=== PATIENT | female | born 1960 | race Caucasian/White ===

== ENCOUNTER → 2018-11-20 | Outpatient (CLI) | payer BC ==
[2018-11-20 10:05] LABS: HCT 44.6 % (34.0-46.0); HGB 14.6 gm/dL (11.4-16.0); MCH 29.7 pg (25.0-35.0); MCHC 32.7 g/dL (31.0-37.0); MCV 90.9 fL (80.0-100.0); Mean Platelet Volume 6.8; Platelet Count 163 k/uL (150-450); RDW 13.2 % (11.5-15.5); WBC 3.4 k/uL (3.8-10.6)
[2018-11-20 16:20] LABS: Lyme IgG/IgM 0.05 Index
[2018-11-20 16:45] LABS: African American GFR (CKD) 71.4 (60.0-200.0); Albumin 4.9 g/dL (3.80-4.90); Albumin/Globulin Ratio 2.72 (1.60-3.17); Anion Gap 11.7 mmol/L (4.00-12.00); Calcium 10.2 mg/dL (8.7-10.3); Carbon Dioxide 27.3 mmol/L (21.6-31.8); Chol/HDL Ratio 2.69; Globulin 1.8 g/dL (1.6-3.3); LDL Cholesterol,Calculated 150.4 mg/dL (0.0-131.0); Potassium 4.3 mmol/L (3.5-5.5); Total Bilirubin 0.9 mg/dL (0.2-1.2); Total Protein 6.7 g/dL (6.2-8.2); VLDL Calculation 16.6 mg/dL (5.00-40.00)
== END | disposition home or self-care (01) ==
LOC: LABWHC1 09:17
PROVIDERS: ATTEND Family Medicine
DX: H93.19 Tinnitus, unspecified ear (principal); Z20.7 Contact with and (suspected) exposure to pediculosis, acariasis and other infestations; D72.819 Decreased white blood cell count, unspecified
CPT/HCPCS: 36415; 80053; 80061; 83090; 85027; 86141; 86618

== ENCOUNTER → 2018-12-22 | Outpatient (CLI) | payer BC ==
[2018-12-22 09:02] LABS: HCT 43.5 % (34.0-46.0); HGB 14.5 gm/dL (11.4-16.0); MCH 29.9 pg (25.0-35.0); MCHC 33.3 g/dL (31.0-37.0); MCV 89.6 fL (80.0-100.0); Mean Platelet Volume 6.9; Platelet Count 160 k/uL (150-450); RBC 4.85 m/uL (3.80-5.40); WBC 3.6 k/uL (3.8-10.6)
== END | disposition home or self-care (01) ==
LOC: LABWHC1 08:26
PROVIDERS: ATTEND Family Medicine
DX: G43.909 Migraine, unspecified, not intractable, without status migrainosus (principal); H93.19 Tinnitus, unspecified ear; D72.819 Decreased white blood cell count, unspecified
CPT/HCPCS: 36415; 85027

== ENCOUNTER → 2019-01-15 | Outpatient (CLI) | payer BC ==
--- NOTE | 2019-01-15 12:16 | CT ---
EXAMINATION TYPE: CT iac wo con DATE OF EXAM: 01/15/2019 COMPARISON: None HISTORY: Tinnitis and hearing loss. CT DLP: 200 mGycm Automated exposure control for dose reduction was used. CONTRAST: None FINDINGS: Internal auditory canals appear normal without expansion or erosion. Cochlea and semicircular canals are normal. Mastoid air cells are clear. The attics are clear. Scutum are normal. Middle ears are ronnell ar. Incus and malleus in normal orientation. There are high riding jugular bulbs present bilaterally. No cerebellar pontine angle masses are evident. IMPRESSION: NORMAL BILATERAL INTERNAL AUDITORY CANALS.
== END | disposition home or self-care (01) ==
LOC: RADCTMAIN 11:23
PROVIDERS: ATTEND Otolaryngology
DX: H93.12 Tinnitus, left ear (principal); H90.11 Conductive hearing loss, unilateral, right ear, with unrestricted hearing on the contralateral side; R26.89 Other abnormalities of gait and mobility
CPT/HCPCS: 70480

== ENCOUNTER 2019-07-23 12:43 | Day surgery (SDC) | payer BC ==
[2019-07-23] MEDS ORDERED: SODIUM CHLORIDE 0.9% 1,000 ML IV SCH ×2 (13:00→15:00)
[2019-07-23 13:14] VITALS: TEMP 98.2
[2019-07-23] MEDS ORDERED: VERAPAMIL 2.5 MG/ML 2 ML AMP ONE (13:59)
[2019-07-23] MEDS ORDERED: LIDOCAINE 1% INJ 10MG/ML (20 ML MDV) ONE (13:59)
[2019-07-23] MEDS ORDERED: HEPARIN SODIUM 1,000 UN/ML (10ML VL) ONE (13:59)
[2019-07-23] MEDS: MIDAZOLAM 2 MG/2 ML VIAL IV ONE ×2 (14:08→14:30)
[2019-07-23] MEDS: LIDOCAINE 1% INJ 10MG/ML (20 ML MDV) SQ ONE ×3 (14:10→14:22)
[2019-07-23] MEDS ORDERED: VERAPAMIL SYRINGE (5 MG/10 ML) INTRAARTER ONE (14:13)
[2019-07-23] MEDS ORDERED: IOPAMIDOL-370 100ML BTL INJ ONE (14:44)
[2019-07-23 15:17] VITALS: RESP 16
[2019-07-23 16:38] VITALS: BP 118/69; PULSE 64
--- NOTE | 2019-07-23 18:48 | CC ---
CARDIAC CATHETERIZATION REPORT DATE OF SERVICE: 07/23/2019 PROCEDURE: Left heart catheterization and coronary angiography. PERFORMED BY: Dr. Cuate Pedroza. Moderate conscious sedation time was 35 minutes. Patient was administered Versed. Oxygen saturation, hemodynamics and EKG were monitored closely. CLINICAL INFORMATION: Mrs. Clarence Delgado is a 59-year-old lady with a significant history for paroxysmal supraventricular tachycardia who underwent ablation about [address] Buitrago. She came into the office to see Dr. Buitrago with episodes of chest pressure that seemed to come on with activity and seemed to be persistent. The symptoms were suggestive of angina. He performed a stress test that was done today which revealed an anteroseptal and inferoseptal area of fixed defect with some reversibility, but more importantly she had chest pressure and EKG changes with Lexiscan administration. She was therefore advised cardiac catheterization after due discussion regarding risks, benefits and options. PROCEDURE NOTE: Under local anesthesia and strict aseptic precautions, a 6-Latvian introducer was placed in the right radial artery. I did not get much return. Patient is somewhat small. She weighs less than 60 kg and her arteries are also probably small. I therefore took the sheath out, applied manual pressure, and then I applied a TR band. Saturation in the fingers of the right hand was 98%. Good hemostasis was secured. I then turned my attention from the right femoral approach. Under strict aseptic precautions and local anesthesia, a 6-Latvian introducer was placed in the right femoral artery. Using a JL3.5 and JR4.0 catheters, I performed coronary angiography, and the same right catheter was used to check LV pressures. LV gram was not performed. Sheath was taken out and Angio-Seal device used to secure hemostasis. Results were discussed with the patient. I also spoke to her by phone, and she will be discharged later on today if she remains stable. CARDIAC CATHETERIZATION FINDINGS: The left ventricular end-diastolic pressure was about 12 mmHg without any gradient across aortic valve. LV gram was not performed. CORONARY ANGIOGRAPHY FINDINGS: RIGHT CORONARY ARTERY: This is a small nondominant vessel with a limited amount of myocardium being supplied by this. No significant disease is noted in the RCA. LEFT MAIN CORONARY ARTERY: Short, patent, disease-free vessel that immediately bifurcates into LAD and circumflex. Left main is very small. No significant disease. LEFT ANTERIOR DESCENDING CORONARY ARTERY: Good-caliber vessel extends along the anterior wall giving off septal and diagonal branches. Runs towards the apex, curves over the apex to supply the inferoapical portion of left ventricle. No significant disease in the LAD system. LEFT POSTERIOR CIRCUMFLEX CORONARY ARTERY: Technically this is a dominant vessel. Gives off an obtuse marginal branch proximally, then distally it divides into a PDA and PLV, both of which supply a sizable amount of myocardium. No significant disease in the dominant circumflex vessel. Left ventriculogram was not performed. FINAL IMPRESSION: This patient has normal filling pressures. No gradient across aortic valve. She has a left-dominant system. No significant CAD. The stress test was probably a false positive finding. Results were discussed with the patient, and I also communicated with the family. I expect she will be discharged later on today if she remains stable. I will see her on Saturday to check her right radial and femoral site and then she will follow up with Dr. Buitrago. I expect that she will be discharged today if she remains stable. MMODL / IJN: [id number] /
== END 2019-07-23 18:47 | disposition home or self-care (01) ==
LOC: CATHCVL 12:43
PROVIDERS: ATTEND Internal Medicine Interventional Cardiology
DX: I20.0 Unstable angina (principal); R94.31 Abnormal electrocardiogram [ECG] [EKG]; R94.39 Abnormal result of other cardiovascular function study; I47.1 Supraventricular tachycardia; E78.5 Hyperlipidemia, unspecified; Z79.82 Long term (current) use of aspirin; Z79.899 Other long term (current) drug therapy; Z88.0 Allergy status to penicillin; Z82.49 Family history of ischemic heart disease and other diseases of the circulatory system
CPT/HCPCS: 93458; 87635; C1769 ×4; C1760; C1894 ×2; J2250; J2001; Q9967

== ENCOUNTER 2019-08-13 10:12 | Emergency (ER) | payer BC ==
[2019-08-13 10:26] VITALS: TEMP 98.2
--- NOTE | 2019-08-13 10:55 | ED ---
General Adult HPI - General Chief complaint: Chest Pain Stated complaint: Weakness Time Seen by Provider: 08/13/19 10:32 Source: patient Mode of arrival: ambulatory Limitations: no limitations - History of Present Illness Initial comments: Dictation was produced using [employer] dictation software. please excuse any grammatical, word or spelling errors. This patient was cared for during a federal and state declared state of emergency secondary to Covid 19 Chief Complaint: 59-year-old female with past medical history of high cholesterol presents with sensation of rock in her chest. History of Present Illness: Is a 59-year-old female she has past medical history of high cholesterol. She presents today with sensation of a rock in her chest. Patient states she's had these symptoms before. She is currently undergoing evaluation for what is causing her symptoms. She had a cardiac cath in June of this year and was completely normal. She is currently working with a GI doctor and is to get a CT and possible endoscopy next month. Patient states her symptoms have come back onto her to come to the emergency department. She does complain of some mild nausea. She has minimal epigastric pain. States that she is able swallow and tolerate liquids and solids. No vomiting. The ROS documented in this emergency department record has been reviewed and confirmed by me. Those systems with pertinent positive or negative responses have been documented in the HPI. All other systems are other negative and/or noncontributory. PHYSICAL EXAM: General Impression: Alert and oriented x3, not in acute distress HEENT: Normocephalic atraumatic, extra-ocular movements intact, pupils equal and reactive to light bilaterally, mucous membranes moist. Cardiovascular: Heart regular rate and rhythm Chest: Able to complete full sentences, no retractions, no tachypnea Abdomen: abdomen soft, non-tender, non-distended, no organomegaly Musculoskeletal: Pulses present and equal in all extremities, no peripheral edema Motor: no focal deficits noted Neurological: CN II-XII grossly intact, no focal motor or sensory deficits noted Skin: Intact with no visualized rashes Psych: Normal affect and mood ED course: 59-year-old female presents with chest symptoms. He has no significant comorbidities. Vital signs upon arrival are within acceptable limits. Cardiac cath was reviewed from July 22 of this year. It was normal without any signs of disease to the coronary arteries. Laboratory evaluation obtained. CBC, coag panel, metabolic panel is unremarkable. Urinalysis shows 11 white blood cells. No concern for UTI at this time considering patient does not have any urinary symptoms. She will be notified of culture results if they are positive. Chest x-ray is unremarkable. Patient tolerating by mouth at bedside. At this point no further indication for any other testing at this time. She is instructed to follow-up with GI doctor for further outpatient workup. Return parameters discussed. Patient will be discharged. EKG interpretation: Ventricular rate 64, normal sinus rhythm,. Interval 112, QRS 96, QTC 387. No PA prolongation, no QTC prolongation, no ST or T-wave changes noted. Overall, this EKG is unremarkable - Related Data Home Medications Medication Instructions Recorded Confirmed Aspirin [Adult Low Dose Aspirin EC] 81 mg PO DAILY 07/23/19 07/23/19 Atorvastatin [Lipitor] 40 mg PO HS 07/23/19 07/23/19 Metoprolol Tartrate 25 mg PO DAILY 07/23/19 07/23/19 Allergies Allergy/AdvReac Type Severity Reaction Status Date / Time Penicillins Allergy Rash/Hives Verified 08/13/19 10:26 Review of Systems ROS Statement: Those systems with pertinent positive or pertinent negative responses have been documented in the HPI. ROS Other: All systems not noted in ROS Statement are negative. Past Medical History Additional Past Medical History / Comment(s): high cholestrol Past Surgical History: Ablation, Heart Catheterization, Hysterectomy Additional Past Surgical History / Comment(s): heart cath june 2019 Smoking Status: Never smoker Past Alcohol Use History: None Reported Past Drug Use History: None Reported General Exam Limitations: no limitations Course Vital Signs 08/13/19 08/13/19 10:21 12:09 Temperature 98.2 F Pulse Rate 69 82 Respiratory 18 16 Rate Blood Pressure 143/86 129/78 O2 Sat by Pulse 100 100 Oximetry Medical Decision Making - Lab Data Result diagrams: 08/13/19 10:47 08/13/19 10:47 Lab Results 08/13/19 08/13/19 08/13/19 Range/Units 10:47 10:47 10:47 WBC 3.2 L (3.8-10.6) k/uL RBC 4.86 (3.80-5.40) m/uL Hgb 14.2 (11.4-16.0) gm/dL Hct 44.3 (34.0-46.0) % MCV 91.3 (80.0-100.0) fL MCH 29.2 (25.0-35.0) pg MCHC 32.0 (31.0-37.0) g/dL RDW 13.4 (11.5-15.5) % Plt Count 161 (150-450) k/uL Neutrophils % 66 % Lymphocytes % 24 % Monocytes % 6 % Eosinophils % 1 % Basophils % 0 % Neutrophils # 2.1 (1.3-7.7) k/uL Lymphocytes # 0.8 L (1.0-4.8) k/uL Monocytes # 0.2 (0-1.0) k/uL Eosinophils # 0.0 (0-0.7) k/uL Basophils # 0.0 (0-0.2) k/uL PT 10.1 (9.0-12.0) sec INR 1.0 (<1.2) APTT 23.4 (22.0-30.0) sec Sodium 137 (137-145) mmol/L Potassium 3.8 (3.5-5.1) mmol/L Chloride 102 (98-107) mmol/L Carbon Dioxide 31 H (22-30) mmol/L Anion Gap 4 mmol/L BUN 15 (7-17) mg/dL Creatinine 0.86 (0.52-1.04) mg/dL Est GFR (CKD-EPI)AfAm 86 (>60 ml/min/1.73 sqM) Est GFR (CKD-EPI)NonAf 74 (>60 ml/min/1.73 sqM) Glucose 109 H (74-99) mg/dL Calcium 9.8 (8.4-10.2) mg/dL Magnesium 2.0 (1.6-2.3) mg/dL Total Bilirubin 0.6 (0.2-1.3) mg/dL AST 21 (14-36) U/L ALT 16 (4-34) U/L Alkaline Phosphatase 73 (38-126) U/L Troponin I (0.000-0.034) ng/mL Total Protein 7.1 (6.3-8.2) g/dL Albumin 4.5 (3.5-5.0) g/dL Urine Color Urine Appearance (Clear) Urine pH (5.0-8.0) Ur Specific [employer] (1.001-1.035) Urine Protein (Negative) Urine Glucose (UA) (Negative) Urine Ketones (Negative) Urine Blood (Negative) Urine Nitrite (Negative) Urine Bilirubin (Negative) Urine Urobilinogen (<2.0) mg/dL Ur Leukocyte Esterase (Negative) Urine RBC (0-5) /hpf Urine WBC (0-5) /hpf Ur Squamous Epith Cells (0-4) /hpf Amorphous Sediment (None) /hpf Urine Bacteria (None) /hpf Urine Mucus (None) /hpf 08/13/19 08/13/19 Range/Units 10:47 11:12 WBC (3.8-10.6) k/uL RBC (3.80-5.40) m/uL Hgb (11.4-16.0) gm/dL Hct (34.0-46.0) % MCV (80.0-100.0) fL MCH (25.0-35.0) pg MCHC (31.0-37.0) g/dL RDW (11.5-15.5) % Plt Count (150-450) k/uL Neutrophils % % Lymphocytes % % Monocytes % % Eosinophils % % Basophils % % Neutrophils # (1.3-7.7) k/uL Lymphocytes # (1.0-4.8) k/uL Monocytes # (0-1.0) k/uL Eosinophils # (0-0.7) k/uL Basophils # (0-0.2) k/uL PT (9.0-12.0) sec INR (<1.2) APTT (22.0-30.0) sec Sodium (137-145) mmol/L Potassium (3.5-5.1) mmol/L Chloride (98-107) mmol/L Carbon Dioxide (22-30) mmol/L Anion Gap mmol/L BUN (7-17) mg/dL Creatinine (0.52-1.04) mg/dL Est GFR (CKD-EPI)AfAm (>60 ml/min/1.73 sqM) Est GFR (CKD-EPI)NonAf (>60 ml/min/1.73 sqM) Glucose (74-99) mg/dL Calcium (8.4-10.2) mg/dL Magnesium (1.6-2.3) mg/dL Total Bilirubin (0.2-1.3) mg/dL AST (14-36) U/L ALT (4-34) U/L Alkaline Phosphatase (38-126) U/L Troponin I <0.012 (0.000-0.034) ng/mL Total Protein (6.3-8.2) g/dL Albumin (3.5-5.0) g/dL Urine Color Light Yellow Urine Appearance Cloudy H (Clear) Urine pH 7.5 (5.0-8.0) Ur Specific [employer] 1.005 (1.001-1.035) Urine Protein Negative (Negative) Urine Glucose (UA) Negative (Negative) Urine Ketones Negative (Negative) Urine Blood Negative (Negative) Urine Nitrite Negative (Negative) Urine Bilirubin Negative (Negative) Urine Urobilinogen <2.0 (<2.0) mg/dL Ur Leukocyte Esterase Large H (Negative) Urine RBC 3 (0-5) /hpf Urine WBC 11 H (0-5) /hpf Ur Squamous Epith Cells 1 (0-4) /hpf Amorphous Sediment Rare H (None) /hpf Urine Bacteria Occasional H (None) /hpf Urine Mucus Rare H (None) /hpf Disposition Clinical Impression: Chest discomfort Disposition: HOME SELF-CARE Condition: Good Instructions (If sedation given, give patient instructions): Chest Pain (ED) Is patient prescribed a controlled substance at d/c from ED?: No Referrals: Genet Preciado DO [Primary Care Provider] - 1-2 days Time of Disposition: 12:16
[2019-08-13 11:03] LABS: Basophils % (A) 0 %; Eosinophils % (A) 1 %; HCT 44.3 % (34.0-46.0); HGB 14.2 gm/dL (11.4-16.0); Lymphocytes # (A) 0.8 k/uL (1.0-4.8); Lymphocytes % (A) 24 %; MCH 29.2 pg (25.0-35.0); MCV 91.3 fL (80.0-100.0); Mean Platelet Volume 7.1; Monocytes # (A) 0.2 k/uL (0-1.0); Monocytes % (A) 6 %; Neutrophils # (A) 2.1 k/uL (1.3-7.7); Neutrophils % (A) 66 %; Platelet Count 161 k/uL (150-450); RBC 4.86 m/uL (3.80-5.40); RDW 13.4 % (11.5-15.5); WBC 3.2 k/uL (3.8-10.6)
[2019-08-13 11:14] LABS: Albumin 4.5 g/dL (3.5-5.0); Calcium 9.8 mg/dL (8.4-10.2); Potassium 3.8 mmol/L (3.5-5.1); Total Bilirubin 0.6 mg/dL (0.2-1.3); Total Protein 7.1 g/dL (6.3-8.2)
--- NOTE | 2019-08-13 11:18 | XR ---
EXAMINATION TYPE: XR chest 2V DATE OF EXAM: 08/13/2019 COMPARISON: NONE HISTORY: Chest pain TECHNIQUE: Frontal and lateral views of the chest are obtained. FINDINGS: There is no focal air space opacity, pleural effusion, or pneumothorax seen. The cardiac silhouette size is within normal limits. The osseous structures are intact. Probable nipple shadow noted incidentally on the left, patient is rotated, there are overlying cardiac leads. Prominent lung volumes could be indicative of underlying COPD. IMPRESSION: No acute cardiopulmonary process. Additional findings above.
[2019-08-13 11:28] LABS: Partial Thromboplastin Time 23.4 sec (22.0-30.0); Prothrombin Time 10.1 sec (9.0-12.0)
[2019-08-13 11:52] LABS: Amorphous Sediment,Urine Rare /hpf; Appearance,Urine Cloudy (Clear); Bacteria,Urine Occasional /hpf; Bilirubin,Urine Negative (Negative); Blood,Urine Negative (Negative); Color,Urine Light Yellow; Glucose,Urine (UA) Negative (Negative); Ketones,Urine Negative (Negative); Leukocyte Esterase,Urine Large (Negative); Mucus,Urine Rare /hpf; Nitrite,Urine Negative (Negative); PH, Urine 7.5 (5.0-8.0); Protein,Urine Negative (Negative); RBC,Urine 3 /hpf (0-5); Specific Gravity,Urine 1.005 (1.001-1.035); Squamous Epithelial Cell,Urine 1 /hpf (0-4); Urobilinogen,Urine <2.0 mg/dL (<2.0); WBC,Urine 11 /hpf (0-5)
[2019-08-13 12:10] VITALS: BP 129/78; PULSE 82; RESP 16
[2019-08-13] MEDS ORDERED: LIDOCAINE 5% PATCH TOPICAL STA (12:15)
== END 2019-08-13 13:00 | disposition home or self-care (01) ==
LOC: EC 10:12
DX: R07.89 Other chest pain (principal); R53.1 Weakness; R11.0 Nausea; R10.13 Epigastric pain; E78.00 Pure hypercholesterolemia, unspecified; Z79.82 Long term (current) use of aspirin; Z79.899 Other long term (current) drug therapy; Z88.0 Allergy status to penicillin
CPT/HCPCS: 36415; 71046; 80053; 81001; 83735; 84484; 85025; 85610; 85730; 87086; 93005; 99285

== ENCOUNTER → 2019-08-18 | Outpatient (CLI) | payer BC ==
--- NOTE | 2019-08-18 16:44 | CT ---
EXAMINATION TYPE: CT abdomen wo/w con DATE OF EXAM: 08/18/2019 HISTORY: Chest pain with weight loss and coughing after eating CT DLP: 420.9mGycm Automated Exposure Control for Dose Reduction was Utilized. CONTRAST: CT scan of the abdomen is performed without and with IV Contrast, patient injected with 100 mL of Iso sharri 300. COMPARISON: None. FINDINGS: LUNG BASES: No significant abnormality is appreciated. LIVER/GB: Hepatic lesion in segment 7 near the dome of the diaphragm measures approximately 1.7 x 2.5 cm. This is poorly visualized on noncontrast imaging. On arterial phase imaging this demonstrates pe ripheral nodular discontinuous enhancement. On delayed phase imaging this continues to demonstrate ce ntripetal enhancement with the majority of the lesion filled in with contrast. Findings are most comp atible with a benign hemangioma. There is a second adjacent 4 mm hepatic lesion that appears to fill in on delayed imaging most compatible with a flash filling hemangioma. Precontrast imaging demonstrat es no evidence of cholelithiasis. No intrahepatic biliary ductal dilatation. No radiopaque calculi in the gallbladder. PANCREAS: No significant abnormality is seen. SPLEEN: No splenomegaly. Spleen measures 11.9 cm in craniocaudal dimension. ADRENALS: No nodularity nor thickening. KIDNEYS: Precontrast imaging demonstrates no evidence of nephrolithiasis. There are punctate to small to accurately characterize sub-5 mm left renal lesions of the upper pole. No hydronephrosis of eithe r kidney. BOWEL: Appendicolith is seen within the distal appendix. No periappendiceal fat stranding. Appendix is retrocecal, partially air-filled and within normal limits of size. Mild thickening of the colon di ffusely with relative hyperemia of the bowel wall. LYMPH NODES: No greater than 1cm abdominal lymph nodes are appreciated. OSSEOUS STRUCTURES: No destructive osseous process is seen. OTHER: No intramural hematoma on precontrast imaging in the abdominal aorta. IMPRESSION: 1. Hepatic lesion has CT characteristics most compatible with a benign hemangioma. 2. Incidentally noted appendicolith. No current CT evidence of acute appendicitis. 3. Diffuse mild colonic wall thickening. Acute uncomplicated pancolitis of infectious or inflammatory etiology should be considered.
== END | disposition home or self-care (01) ==
LOC: RADCTMAIN 14:06
PROVIDERS: ATTEND Family Medicine
DX: K76.9 Liver disease, unspecified (principal)
CPT/HCPCS: 74170; Q9967

== ENCOUNTER 2019-08-27 18:04 | Inpatient (IN) | payer BC ==
[2019-08-27] MEDS ORDERED: SODIUM CHLORIDE 0.9% 1,000 ML IV STA (18:54)
[2019-08-27 19:27] LABS: Basophils % (A) 0 %; Eosinophils % (A) 1 %; HCT 38.1 % (34.0-46.0); HGB 12.6 gm/dL (11.4-16.0); Lymphocytes # (A) 0.4 k/uL (1.0-4.8); Lymphocytes % (A) 15 %; MCH 30.1 pg (25.0-35.0); MCHC 33.1 g/dL (31.0-37.0); MCV 90.9 fL (80.0-100.0); Mean Platelet Volume 7.9; Monocytes # (A) 0.2 k/uL (0-1.0); Monocytes % (A) 7 %; Neutrophils % (A) 75 %; Platelet Count 142 k/uL (150-450); RBC 4.19 m/uL (3.80-5.40); RDW 13.2 % (11.5-15.5); WBC 2.7 k/uL (3.8-10.6)
--- NOTE | 2019-08-27 19:34 | CT ---
EXAMINATION TYPE: CT brain wo con DATE OF EXAM: 08/27/2019 HISTORY: Weakness. CT DLP: 1129.4 mGycm. Automated Exposure Control for Dose Reduction was Utilized. TECHNIQUE: CT scan of the head is performed without contrast. COMPARISON: None. FINDINGS: There is no acute intracranial hemorrhage or midline shift identified. There is diffuse v entricular and sulcal prominence consistent with diffuse age-related cerebral atrophy. Capone-white mat ter differentiation fairly well maintained. Nasal septum deviated to left of midline inferiorly. The globes are intact and the visualized sinuses are clear. IMPRESSION: No acute intracranial hemorrhage or midline shift. There is mild diffuse age-related ce rebral atrophy noted.
[2019-08-27 19:40] LABS: INR 1.1 (<1.2); Partial Thromboplastin Time 23.7 sec (22.0-30.0)
[2019-08-27 19:42] LABS: ALT 20 U/L (4-34); AST 25 U/L (14-36); African American GFR (CKD) >90 (>60 ml/min/1.73 sqM); Albumin 3.8 g/dL (3.5-5.0); Alkaline Phosphatase 67 U/L (38-126); Anion Gap 8 mmol/L; Blood Urea Nitrogen 15 mg/dL (7-17); Calcium 8.8 mg/dL (8.4-10.2); Carbon Dioxide 22 mmol/L (22-30); Chloride 104 mmol/L (98-107); Glucose 88 mg/dL (74-99); Magnesium 1.8 mg/dL (1.6-2.3); Non-African American GFR(CKD) >90 (>60 ml/min/1.73 sqM); Phosphorus 2.3 mg/dL (2.5-4.5); Potassium 4.1 mmol/L (3.5-5.1); Sodium 134 mmol/L (137-145); Total Bilirubin 0.6 mg/dL (0.2-1.3); Total Protein 6.1 g/dL (6.3-8.2)
--- NOTE | 2019-08-27 19:50 | ED ---
General Adult HPI - General Source: patient, RN notes reviewed, old records reviewed Mode of arrival: EMS Limitations: no limitations <Robert Vega - Last Filed: 08/27/19 20:10> <Anh Marshall - Last Filed: 08/30/19 15:54> - General Chief complaint: Weakness Stated complaint: Weakness Time Seen by Provider: 08/27/19 18:08 - History of Present Illness Initial comments: 59-year-old female patient presents to ED for chief complaint generalized weakness. Patient reports that for at least last 3 weeks she has had generalized weakness. Also reports that she has been having mild headaches over this timeframe. Reports that earlier today she had a more severe headache than normal noted in the frontal region however at this time it has mostly resolved. Denies any red flag symptoms for this headache. Denies any chest pain or shortness of breath. Denies any other complaints at this time. Patient did have a heart catheterization in June which was reportedly negative. Systemic: Pt denies fatigue, fever/chills, rash. Pt denies weakness, night sweats, weight loss. Neuro: Pt denies headache, visual disturbances, syncope or pre-syncope. HEENT: Pt denies ocular discharge or irritation, otalgia, rhinorrhea, pharyngitis or notable lymphadenopathy. Cardiopulmonary: Pt denies chest pain, SOB, heart palpitations, dyspnea on exertion. Abdominal/GI: Pt denies abdominal pain, n/v/d. : Pt denies dysuria, burning w/ urination, frequency/urgency. Denies new onset urinary or bowel incontinence. MSK: Pt denies myalgia, loss of strength or function in extremities. Neuro: Pt denies paresthesias. (Robert Vega) - Related Data Home Medications Medication Instructions Recorded Confirmed Acetaminophen [Tylenol] 500 mg PO DAILY PRN 08/27/19 08/27/19 Atorvastatin Calcium [Lipitor] 20 mg PO HS 08/27/19 08/27/19 Ibuprofen [Motrin Ib] 600 mg PO DAILY PRN 08/27/19 08/27/19 metroNIDAZOLE [Flagyl] 500 mg PO TID 08/27/19 08/27/19 Allergies Allergy/AdvReac Type Severity Reaction Status Date / Time Penicillins Allergy Rash/Hives Verified 08/27/19 22:33 Review of Systems ROS Other: All systems not noted in ROS Statement are negative. <Robert Vega - Last Filed: 08/27/19 20:10> ROS Other: All systems not noted in ROS Statement are negative. <Anh Marshall - Last Filed: 08/30/19 15:54> ROS Statement: Those systems with pertinent positive or pertinent negative responses have been documented in the HPI. Past Medical History Past Medical History: Atrial Fibrillation, Hyperlipidemia Additional Past Medical History / Comment(s): high cholestrol History of Any Multi-Drug Resistant Organisms: None Reported Past Surgical History: Ablation, Heart Catheterization, Hysterectomy Additional Past Surgical History / Comment(s): heart cath june 2019 Past Psychological History: No Psychological Hx Reported Smoking Status: Never smoker Past Alcohol Use History: None Reported Past Drug Use History: None Reported <Robert Vega - Last Filed: 08/27/19 20:10> General Exam Limitations: no limitations <Robert Vega - Last Filed: 08/27/19 20:10> - General Exam Comments Initial Comments: Constitutional: NAD, AOX3, Pt has pleasant affect. HEENT: NC/AT, trachea midline, neck supple, no lymphadenopathy. Posterior pharynx non erythematous, without exudates. External ears appear normal, without discharge. Mucous membranes moist. Eyes PERRLA, EOM intact. There is no scleral icterus. No pallor noted. Cardiopulmonary: RRR, no murmurs, rubs or gallops, no JVD noted. Lungs CTAB in anterior and posterior duarte. No peripheral edema. Abdominal exam: Abdomen soft and non-distended. Abdomen non-tender to palpation in all 4 quadrants. Bowel sounds active in LLQ. No hepatosplenomegaly. No ecchymosis Neuro: CN II-XI intact. No nuchal rigidity. No raccon eyes, no ferrer sign, no hemotympanum. No cervical spinal tenderness. MSK: No posterior calf tenderness bilaterally, homans sign negative bilaterally. Posterior tibialis and radial pulse +2 bilaterally. Sensation intact in upper and lower extremities. Full active ROM in upper and lower extremities, 5/5 stregnth. (Robert Vega) Course Vital Signs 08/27/19 08/27/19 08/27/19 18:05 20:30 22:05 Temperature 98.6 F 98.0 F Pulse Rate 56 L 60 55 L Pulse Rate [ Pulse Oximetery ] Respiratory 16 18 18 Rate Blood Pressure 134/80 119/68 120/70 Blood Pressure [Right Arm] O2 Sat by Pulse 100 100 99 Oximetry 08/27/19 23:25 Temperature 98.6 F Pulse Rate Pulse Rate [ 55 L Pulse Oximetery ] Respiratory 18 Rate Blood Pressure Blood Pressure 133/74 [Right Arm] O2 Sat by Pulse 100 Oximetry Medical Decision Making - Lab Data Result diagrams: 08/27/19 18:14 08/27/19 18:14 - EKG Data -: EKG Interpreted by Me (and Dr. Marshall ) <Robert Vega - Last Filed: 08/27/19 20:10> - Lab Data Result diagrams: 08/30/19 05:57 08/30/19 05:57 <Anh Marshall - Last Filed: 08/30/19 15:54> - Medical Decision Making 59-year-old female patient presents to ED for chief complaint generalized weakness. Patient reports that for at least last 3 weeks she has had generalized weakness. Also reports that she has been having mild headaches over this timeframe. Reports that earlier today she had a more severe headache than normal noted in the frontal region however at this time it has mostly resolved. Denies any red flag symptoms for this headache. Denies any chest pain or shortness of breath. Denies any other complaints at this time. Patient did chandra ve a heart catheterization in June which was reportedly negative. Patient vital signs are stable, afebrile. Physical exam did not display acute pathology. Laboratory investigations CBC coagulation studies CMP troponin are negative. Urine is pending. CT brain without did not display acute pathology. EKG is nonischemic. Patient is signed out to Dr. Marshall pending urine studies. (Robert Vega) The patient was signed out to me at shift change. I did review the patient's laboratory studies. The patient was able to provide a urine sample which demonstrates 4+ ketones. I reviewed the patient's CT of her brain. Discussed diagnosis, differential and treatment options. The patient feels as if she is unable to ambulate and is failing to thrive at home. Patient extremely cachectic and dehydrated. Because of this I did recommend hospital admission for the patient did agree. Discussed case with Dr. Edwards. I will consult cardiology per Dr. Espitia request. Also placed Dr. Hardy on consult as he has seen the patient the outpatient setting of recently place her on antibiotics. The patient was in agreement with the treatment plan and admitted to the floor in stable condition (Anh Marshall) - Lab Data Lab Results 08/27/19 08/27/19 08/27/19 Range/Units 18:14 18:14 18:14 WBC 2.7 L (3.8-10.6) k/uL RBC 4.19 (3.80-5.40) m/uL Hgb 12.6 (11.4-16.0) gm/dL Hct 38.1 (34.0-46.0) % MCV 90.9 (80.0-100.0) fL MCH 30.1 (25.0-35.0) pg MCHC 33.1 (31.0-37.0) g/dL RDW 13.2 (11.5-15.5) % Plt Count 142 L (150-450) k/uL Neutrophils % 75 % Lymphocytes % 15 % Monocytes % 7 % Eosinophils % 1 % Basophils % 0 % Neutrophils # 2.0 (1.3-7.7) k/uL Lymphocytes # 0.4 L (1.0-4.8) k/uL Monocytes # 0.2 (0-1.0) k/uL Eosinophils # 0.0 (0-0.7) k/uL Basophils # 0.0 (0-0.2) k/uL ESR (0-20) mm/hr PT 11.0 (9.0-12.0) sec INR 1.1 (<1.2) APTT 23.7 (22.0-30.0) sec Sodium 134 L (137-145) mmol/L Potassium 4.1 (3.5-5.1) mmol/L Chloride 104 (98-107) mmol/L Carbon Dioxide 22 (22-30) mmol/L Anion Gap 8 mmol/L BUN 15 (7-17) mg/dL Creatinine 0.72 (0.52-1.04) mg/dL Est GFR (CKD-EPI)AfAm >90 (>60 ml/min/1.73 sqM) Est GFR (CKD-EPI)NonAf >90 (>60 ml/min/1.73 sqM) Glucose 88 (74-99) mg/dL Plasma Lactic Acid Inocencio (0.7-2.0) mmol/L Calcium 8.8 (8.4-10.2) mg/dL Phosphorus 2.3 L (2.5-4.5) mg/dL Magnesium 1.8 (1.6-2.3) mg/dL Total Bilirubin 0.6 (0.2-1.3) mg/dL AST 25 (14-36) U/L ALT 20 (4-34) U/L Alkaline Phosphatase 67 (38-126) U/L Troponin I (0.000-0.034) ng/mL C-Reactive Protein (<10.0) mg/L Total Protein 6.1 L (6.3-8.2) g/dL Albumin 3.8 (3.5-5.0) g/dL Prealbumin (18.0-42.0) mg/dL Urine Color Urine Appearance (Clear) Urine pH (5.0-8.0) Ur Specific [place] (1.001-1.035) Urine Protein (Negative) Urine Glucose (UA) (Negative) Urine Ketones (Negative) Urine Blood (Negative) Urine Nitrite (Negative) Urine Bilirubin (Negative) Urine Urobilinogen (<2.0) mg/dL Ur Leukocyte Esterase (Negative) Coronavirus (PCR) (Not Detected) 08/27/19 08/27/19 08/27/19 Range/Units 18:14 18:14 20:43 WBC (3.8-10.6) k/uL RBC (3.80-5.40) m/uL Hgb (11.4-16.0) gm/dL Hct (34.0-46.0) % MCV (80.0-100.0) fL MCH (25.0-35.0) pg MCHC (31.0-37.0) g/dL RDW (11.5-15.5) % Plt Count (150-450) k/uL Neutrophils % % Lymphocytes % % Monocytes % % Eosinophils % % Basophils % % Neutrophils # (1.3-7.7) k/uL Lymphocytes # (1.0-4.8) k/uL Monocytes # (0-1.0) k/uL Eosinophils # (0-0.7) k/uL Basophils # (0-0.2) k/uL ESR (0-20) mm/hr PT (9.0-12.0) sec INR (<1.2) APTT (22.0-30.0) sec Sodium (137-145) mmol/L Potassium (3.5-5.1) mmol/L Chloride (98-107) mmol/L Carbon Dioxide (22-30) mmol/L Anion Gap mmol/L BUN (7-17) mg/dL Creatinine (0.52-1.04) mg/dL Est GFR (CKD-EPI)AfAm (>60 ml/min/1.73 sqM) Est GFR (CKD-EPI)NonAf (>60 ml/min/1.73 sqM) Glucose (74-99) mg/dL Plasma Lactic Acid Inocencio 1.2 (0.7-2.0) mmol/L Calcium (8.4-10.2) mg/dL Phosphorus (2.5-4.5) mg/dL Magnesium (1.6-2.3) mg/dL Total Bilirubin (0.2-1.3) mg/dL AST (14-36) U/L ALT (4-34) U/L Alkaline Phosphatase (38-126) U/L Troponin I <0.012 (0.000-0.034) ng/mL C-Reactive Protein (<10.0) mg/L Total Protein (6.3-8.2) g/dL Albumin (3.5-5.0) g/dL Prealbumin (18.0-42.0) mg/dL Urine Color Light Red Urine Appearance Clear (Clear) Urine pH 7.0 (5.0-8.0) Ur Specific [place] 1.027 (1.001-1.035) Urine Protein Trace H (Negative) Urine Glucose (UA) Negative (Negative) Urine Ketones 4+ H (Negative) Urine Blood Negative (Negative) Urine Nitrite Negative (Negative) Urine Bilirubin Negative (Negative) Urine Urobilinogen <2.0 (<2.0) mg/dL Ur Leukocyte Esterase Negative (Negative) Coronavirus (PCR) (Not Detected) 08/27/19 08/28/19 08/28/19 Range/Units 22:02 06:06 06:06 WBC 3.3 L (3.8-10.6) k/uL RBC 3.94 (3.80-5.40) m/uL Hgb 12.3 (11.4-16.0) gm/dL Hct 36.9 (34.0-46.0) % MCV 93.6 (80.0-100.0) fL MCH 31.2 (25.0-35.0) pg MCHC 33.3 (31.0-37.0) g/dL RDW 13.3 (11.5-15.5) % Plt Count 137 L (150-450) k/uL Neutrophils % 71 % Lymphocytes % 18 % Monocytes % 6 % Eosinophils % 2 % Basophils % 0 % Neutrophils # 2.3 (1.3-7.7) k/uL Lymphocytes # 0.6 L (1.0-4.8) k/uL Monocytes # 0.2 (0-1.0) k/uL Eosinophils # 0.1 (0-0.7) k/uL Basophils # 0.0 (0-0.2) k/uL ESR (0-20) mm/hr PT (9.0-12.0) sec INR (<1.2) APTT (22.0-30.0) sec Sodium 138 (137-145) mmol/L Potassium 3.8 (3.5-5.1) mmol/L Chloride 110 H (98-107) mmol/L Carbon Dioxide 22 (22-30) mmol/L Anion Gap 6 mmol/L BUN 11 (7-17) mg/dL Creatinine 0.72 (0.52-1.04) mg/dL Est GFR (CKD-EPI)AfAm >90 (>60 ml/min/1.73 sqM) Est GFR (CKD-EPI)NonAf >90 (>60 ml/min/1.73 sqM) Glucose 69 L (74-99) mg/dL Plasma Lactic Acid Inocencio (0.7-2.0) mmol/L Calcium 8.3 L (8.4-10.2) mg/dL Phosphorus (2.5-4.5) mg/dL Magnesium (1.6-2.3) mg/dL Total Bilirubin (0.2-1.3) mg/dL AST (14-36) U/L ALT (4-34) U/L Alkaline Phosphatase (38-126) U/L Troponin I (0.000-0.034) ng/mL C-Reactive Protein (<10.0) mg/L Total Protein (6.3-8.2) g/dL Albumin (3.5-5.0) g/dL Prealbumin (18.0-42.0) mg/dL Urine Color Urine Appearance (Clear) Urine pH (5.0-8.0) Ur Specific [place] (1.001-1.035) Urine Protein (Negative) Urine Glucose (UA) (Negative) Urine Ketones (Negative) Urine Blood (Negative) Urine Nitrite (Negative) Urine Bilirubin (Negative) Urine Urobilinogen (<2.0) mg/dL Ur Leukocyte Esterase (Negative) Coronavirus (PCR) Not Detected (Not Detected) 08/28/19 08/29/19 08/29/19 Range/Units 06:06 06:44 06:44 WBC (3.8-10.6) k/uL RBC (3.80-5.40) m/uL Hgb (11.4-16.0) gm/dL Hct (34.0-46.0) % MCV (80.0-100.0) fL MCH (25.0-35.0) pg MCHC (31.0-37.0) g/dL RDW (11.5-15.5) % Plt Count (150-450) k/uL Neutrophils % % Lymphocytes % % Monocytes % % Eosinophils % % Basophils % % Neutrophils # (1.3-7.7) k/uL Lymphocytes # (1.0-4.8) k/uL Monocytes # (0-1.0) k/uL Eosinophils # (0-0.7) k/uL Basophils # (0-0.2) k/uL ESR 2 (0-20) mm/hr PT (9.0-12.0) sec INR (<1.2) APTT (22.0-30.0) sec Sodium (137-145) mmol/L Potassium (3.5-5.1) mmol/L Chloride (98-107) mmol/L Carbon Dioxide (22-30) mmol/L Anion Gap mmol/L BUN (7-17) mg/dL Creatinine (0.52-1.04) mg/dL Est GFR (CKD-EPI)AfAm (>60 ml/min/1.73 sqM) Est GFR (CKD-EPI)NonAf (>60 ml/min/1.73 sqM) Glucose (74-99) mg/dL Plasma Lactic Acid Inocencio (0.7-2.0) mmol/L Calcium (8.4-10.2) mg/dL Phosphorus (2.5-4.5) mg/dL Magnesium (1.6-2.3) mg/dL Total Bilirubin (0.2-1.3) mg/dL AST (14-36) U/L ALT (4-34) U/L Alkaline Phosphatase (38-126) U/L Troponin I (0.000-0.034) ng/mL C-Reactive Protein <5.0 (<10.0) mg/L Total Protein (6.3-8.2) g/dL Albumin (3.5-5.0) g/dL Prealbumin 16.0 L (18.0-42.0) mg/dL Urine Color Urine Appearance (Clear) Urine pH (5.0-8.0) Ur Specific [place] (1.001-1.035) Urine Protein (Negative) Urine Glucose (UA) (Negative) Urine Ketones (Negative) Urine Blood (Negative) Urine Nitrite (Negative) Urine Bilirubin (Negative) Urine Urobilinogen (<2.0) mg/dL Ur Leukocyte Esterase (Negative) Coronavirus (PCR) (Not Detected) - EKG Data EKG Comments: Ventricular rate 50, painful 132, QRS 92, QT/QTc 452/412. Sinus bradycardia, septal infarct age undetermined. Abnormal EKG. No concern for acute ischemia at this time. (Robert Vega) Disposition <Robert Vega - Last Filed: 08/27/19 20:10> Is patient prescribed a controlled substance at d/c from ED?: No Decision to Admit Reason: Admit from EC Decision Date: 08/27/19 Decision Time: 21:45 <Anh Marshall - Last Filed: 08/30/19 15:54> Clinical Impression: Dehydration, Failure to thrive, Nausea & vomiting Disposition: ADMITTED IP TO THIS HOSP Condition: Stable
[2019-08-27 20:47] LABS: Appearance,Urine Clear (Clear); Bilirubin,Urine Negative (Negative); Blood,Urine Negative (Negative); Color,Urine Light Red; Glucose,Urine (UA) Negative (Negative); Ketones,Urine 4+ (Negative); Leukocyte Esterase,Urine Negative (Negative); Nitrite,Urine Negative (Negative); Protein,Urine Trace (Negative); Specific Gravity,Urine 1.027 (1.001-1.035); Urobilinogen,Urine <2.0 mg/dL (<2.0)
[2019-08-27] MEDS ORDERED: NALOXONE 0.4 MG/ML 1 ML VIAL IV PRN (21:45)
[2019-08-27] MEDS ORDERED: SODIUM CHLORIDE 0.9% 1,000 ML IV SCH (21:45)
[2019-08-28 06:42] LABS: Basophils % (A) 0 %; Eosinophils # (A) 0.1 k/uL (0-0.7); Eosinophils % (A) 2 %; HCT 36.9 % (34.0-46.0); HGB 12.3 gm/dL (11.4-16.0); Lymphocytes # (A) 0.6 k/uL (1.0-4.8); Lymphocytes % (A) 18 %; MCH 31.2 pg (25.0-35.0); MCHC 33.3 g/dL (31.0-37.0); MCV 93.6 fL (80.0-100.0); Mean Platelet Volume 7.4; Monocytes # (A) 0.2 k/uL (0-1.0); Monocytes % (A) 6 %; Neutrophils # (A) 2.3 k/uL (1.3-7.7); Neutrophils % (A) 71 %; Platelet Count 137 k/uL (150-450); RBC 3.94 m/uL (3.80-5.40); RDW 13.3 % (11.5-15.5); WBC 3.3 k/uL (3.8-10.6)
[2019-08-28 07:01] LABS: Potassium 3.8 mmol/L (3.5-5.1)
[2019-08-28 07:02] LABS: African American GFR (CKD) >90 (>60 ml/min/1.73 sqM); Anion Gap 6 mmol/L; Blood Urea Nitrogen 11 mg/dL (7-17); Calcium 8.3 mg/dL (8.4-10.2); Carbon Dioxide 22 mmol/L (22-30); Chloride 110 mmol/L (98-107); Glucose 69 mg/dL (74-99); Non-African American GFR(CKD) >90 (>60 ml/min/1.73 sqM); Sodium 138 mmol/L (137-145)
[2019-08-28] MEDS: ONDANSETRON 4 MG/2 ML VIAL IVP PRN (07:37)
[2019-08-28] MEDS: DEXTROSE 5%-0.45% NACL 1,000 ML IV SCH ×2 (10:22→22:04)
[2019-08-28] MEDS: metroNIDAZOLE-NS PMX 500 MG in SALINE 1 100ML.BAG IVPB SCH ×2 (10:23→16:52)
[2019-08-28 11:17] VITALS: BMI 17.9
--- NOTE | 2019-08-28 12:22 | P.GSCN ---
History of Present Illness Consult date: 08/28/19 History of present illness: 59-year-old female presented to the emergency department complaining of weakness. She has been evaluated as an outpatient in my office and she is known to me. She did presents my office last week with complaints of nausea and vomiting with any oral intake. She also complained of consistent diarrhea. She did have an ultrasound done at that time which was concerning for a possible liver lesion and at that time a CT of the abdomen and pelvis was pending. CT of the abdomen was completed and was reviewed earlier this week. There was concern for a hemangioma along with inflammation throughout the colon consistent with pancolitis. I did discuss these results with her over the phone and did start the patient on Flagyl at that time. She states that over the week, she continued to worsen with nausea and vomiting episodes and continued to have loose stool. Her weakness continued to increase and she presented to the hospital. Currently, she states that she does have some improvement with IV fluid therapy and IV Flagyl. She is on a clear liquid diet and states that she is able to keep liquids down at this time. She originally was scheduled for a upper and lower endoscopy in 1 week. She denies any fevers, chills, chest pain or shortness of breath. She has never had a previous colonoscopy. She denies any blood in her stool. Review of Systems All systems: negative Past Medical History Past Medical History: Atrial Fibrillation, Hyperlipidemia Additional Past Medical History / Comment(s): high cholestrol History of Any Multi-Drug Resistant Organisms: None Reported Past Surgical History: Ablation, Heart Catheterization, Hysterectomy Additional Past Surgical History / Comment(s): heart cath june 2019 Past Psychological History: No Psychological Hx Reported Smoking Status: Never smoker Past Alcohol Use History: None Reported Past Drug Use History: None Reported Medications and Allergies Home Medications Medication Instructions Recorded Confirmed Type Acetaminophen [Tylenol] 500 mg PO DAILY PRN 08/27/19 08/27/19 History Atorvastatin Calcium [Lipitor] 20 mg PO HS 08/27/19 08/27/19 History Ibuprofen [Motrin Ib] 600 mg PO DAILY PRN 08/27/19 08/27/19 History metroNIDAZOLE [Flagyl] 500 mg PO TID 08/27/19 08/27/19 History Allergies Allergy/AdvReac Type Severity Reaction Status Date / Time Penicillins Allergy Rash/Hives Verified 08/27/19 22:33 Surgical - Exam Osteopathic Statement: *. No significant issues noted on an osteopathic structural exam other than those noted in the History and Physical/Consult. Vital Signs Temp Pulse Resp BP Pulse Ox 98.6 F 56 L 16 134/80 100 08/27/19 18:05 08/27/19 18:05 08/27/19 18:05 08/27/19 18:05 08/27/19 18:05 - General well developed, well nourished - Eyes PERRL, normal ocular movement - ENT no hearing loss - Neck trachea midline - Respiratory normal respiratory effort - Abdomen Soft nontender nondistended no rebound or guarding - Psychiatric oriented to time, oriented to person, oriented to place Results - Labs 08/28/19 06:06 08/28/19 06:06 Abnormal Lab Results - Last 24 Hours (Table) 08/27/19 08/27/19 08/27/19 Range/Units 18:14 18:14 20:43 WBC 2.7 L (3.8-10.6) k/uL Plt Count 142 L (150-450) k/uL Lymphocytes # 0.4 L (1.0-4.8) k/uL Sodium 134 L (137-145) mmol/L Chloride (98-107) mmol/L Glucose (74-99) mg/dL Calcium (8.4-10.2) mg/dL Phosphorus 2.3 L (2.5-4.5) mg/dL Total Protein 6.1 L (6.3-8.2) g/dL Urine Protein Trace H (Negative) Urine Ketones 4+ H (Negative) 08/28/19 08/28/19 Range/Units 06:06 06:06 WBC 3.3 L (3.8-10.6) k/uL Plt Count 137 L (150-450) k/uL Lymphocytes # 0.6 L (1.0-4.8) k/uL Sodium (137-145) mmol/L Chloride 110 H (98-107) mmol/L Glucose 69 L (74-99) mg/dL Calcium 8.3 L (8.4-10.2) mg/dL Phosphorus (2.5-4.5) mg/dL Total Protein (6.3-8.2) g/dL Urine Protein (Negative) Urine Ketones (Negative) Diabetes panel 08/27/19 08/28/19 Range/Units 18:14 06:06 Sodium 134 L 138 (137-145) mmol/L Potassium 4.1 3.8 (3.5-5.1) mmol/L Chloride 104 110 H (98-107) mmol/L Carbon Dioxide 22 22 (22-30) mmol/L BUN 15 11 (7-17) mg/dL Creatinine 0.72 0.72 (0.52-1.04) mg/dL Glucose 88 69 L (74-99) mg/dL Calcium 8.8 8.3 L (8.4-10.2) mg/dL AST 25 (14-36) U/L ALT 20 (4-34) U/L Alkaline Phosphatase 67 (38-126) U/L Total Protein 6.1 L (6.3-8.2) g/dL Albumin 3.8 (3.5-5.0) g/dL Calcium panel 08/27/19 08/28/19 Range/Units 18:14 06:06 Calcium 8.8 8.3 L (8.4-10.2) mg/dL Phosphorus 2.3 L (2.5-4.5) mg/dL Albumin 3.8 (3.5-5.0) g/dL Pituitary panel 08/27/19 08/28/19 Range/Units 18:14 06:06 Sodium 134 L 138 (137-145) mmol/L Potassium 4.1 3.8 (3.5-5.1) mmol/L Chloride 104 110 H (98-107) mmol/L Carbon Dioxide 22 22 (22-30) mmol/L BUN 15 11 (7-17) mg/dL Creatinine 0.72 0.72 (0.52-1.04) mg/dL Glucose 88 69 L (74-99) mg/dL Calcium 8.8 8.3 L (8.4-10.2) mg/dL Adrenal panel 08/27/19 08/28/19 Range/Units 18:14 06:06 Sodium 134 L 138 (137-145) mmol/L Potassium 4.1 3.8 (3.5-5.1) mmol/L Chloride 104 110 H (98-107) mmol/L Carbon Dioxide 22 22 (22-30) mmol/L BUN 15 11 (7-17) mg/dL Creatinine 0.72 0.72 (0.52-1.04) mg/dL Glucose 88 69 L (74-99) mg/dL Calcium 8.8 8.3 L (8.4-10.2) mg/dL Total Bilirubin 0.6 (0.2-1.3) mg/dL AST 25 (14-36) U/L ALT 20 (4-34) U/L Alkaline Phosphatase 67 (38-126) U/L Total Protein 6.1 L (6.3-8.2) g/dL Albumin 3.8 (3.5-5.0) g/dL Assessment and Plan (1) Nausea & vomiting Narrative/Plan: I did discuss the case in depth with the patient. At this point, if concern was for colitis or enteritis, antibiotic treatment should have shown some success. Due to continuing worsening of symptoms, I did discuss her case with gastroenterology and have placed a consult for gastroenterology for further evaluation. She is currently tolerating a clear liquid diet and I would continue this diet. No surgical plan for hemangioma. Patient was originally scheduled for upper and lower endoscopy in 1 week, however I will defer to GI recommendations on if endoscopy needs to be performed earlier. I will continue to follow and make surgical recommendations based on the patient's clinical progress. Current Visit: Yes Status: Acute Code(s): R11.2 - NAUSEA WITH VOMITING, UNSPECIFIED SNOMED Code(s): 41853797
--- NOTE | 2019-08-28 12:54 | P.CRDCN ---
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 She follows in the office with Dr. Buitrago. In June 2019 she underwent a stress test in the office revealing possible reversibility prompting a heart catheterization. Cath revealed normal coronary arteries with no evidence of obstructive disease. We have been asked to see her in consultation for chest pa in. She is seen and examined in no acute distress. She is tearful and frustrated with no answers to her symptoms. She is having intermittent vague chest pain, headache and generalized weakness. Her pain is worse when she walks. DIAGNOSTICS EKG reveals sinus bradycardia heart rate 50 with poor R-wave progression. CT brain negative for an acute intracranial process. Laboratory reviewed, WBC 3.3, hgb 12.3, plt 137, potassium 3.8, creatinine 0.72 and magnesium 1.8. Daily cardiac medications include atorvastatin 20 mg daily. REVIEW OF SYSTEMS At the time of my exam: CONSTITUTIONAL: Denies fever or chills. CARDIOVASCULAR: Denies chest pain, shortness of breath, orthopnea, PND or palpitations. RESPIRATORY: Denies cough. GASTROINTESTINAL: Denies abdominal pain, diarrhea, constipation, nausea or vomiting. MUSCULOSKELETAL: Denies myalgias. NEUROLOGIC: Denies numbness, tingling or weakness. ENDOCRINE: Denies fatigue, weight change, polydipsia or polyurina. GENITOURINARY: Denies burning, hematuria or urgency with micturation. HEMATOLOGIC: Denies history of anemia or bleeding. PHYSICAL EXAMINATION Blood pressure heart rate afebrile and maintaining oxygen saturation on room air. CONSTITUTIONAL: No apparent distress. HEENT: Head is normocephalic. Pupils are equal, round. Sclerae anicteric. Mucous membranes of the mouth are moist. No JVD. No carotid bruit. CHEST EXAMINATION: Lungs are clear to auscultation. No chest wall tenderness is noted on palpation or with deep breathing. HEART EXAMINATION: Regular rate and rhythm. S1, S2 heard. No murmurs, gallops or rub. ABDOMEN: Soft, nontender. Positive bowel sounds. EXTREMITIES: 2+ peripheral pulses, no lower extremity edema and no calf tenderness. NEUROLOGIC EXAMINATION: Patient is awake, alert and oriented x3. ASSESSMENT Chest pain, recent normal catheterization 06/2019 Headache Generalized weakness Dyslipidemia History of AV-NRT s/p ablation PLAN Normal coronary arteries June 2019. Symptoms are not related to cardiac etiology. Consider GI source. No further cardiac work-up. Follow up with Dr. Buitrago in the office in 2 weeks. Thank you kindly for this consultation. Nurse Practitioner note has been reviewed, I agree with a documented findings and plan of care. Patient was seen and examined. Past Medical History Past Medical History: Atrial Fibrillation, Hyperlipidemia Additional Past Medical History / Comment(s): high cholestrol History of Any Multi-Drug Resistant Organisms: None Reported Past Surgical History: Ablation, Heart Catheterization, Hysterectomy Additional Past Surgical History / Comment(s): heart cath june 2019 Past Psychological History: No Psychological Hx Reported Smoking Status: Never smoker Past Alcohol Use History: None Reported Past Drug Use History: None Reported Medications and Allergies Home Medications Medication Instructions Recorded Confirmed Type Acetaminophen [Tylenol] 500 mg PO DAILY PRN 08/27/19 08/27/19 History Atorvastatin Calcium [Lipitor] 20 mg PO HS 08/27/19 08/27/19 History Ibuprofen [Motrin Ib] 600 mg PO DAILY PRN 08/27/19 08/27/19 History metroNIDAZOLE [Flagyl] 500 mg PO TID 08/27/19 08/27/19 History Allergies Allergy/AdvReac Type Severity Reaction Status Date / Time Penicillins Allergy Rash/Hives Verified 08/27/19 22:33 Physical Exam Vitals: Vital Signs Temp Pulse Pulse Resp BP BP Pulse Ox 08/28/19 05:02 98.3 F 58 L 16 118/66 99 08/28/19 00:00 18 08/27/19 23:25 98.6 F 55 L 18 133/74 100 08/27/19 22:05 98.0 F 55 L 18 120/70 99 08/27/19 20:30 60 18 119/68 100 08/27/19 18:05 98.6 F 56 L 16 134/80 100 Intake and Output 08/27/19 08/28/19 08/28/19 22:59 06:59 14:59 Intake Total 300 Balance 300 Intake: Intake, IV Titration 300 Amount Sodium Chloride 0.9% 1, 300 000 ml @ 75 mls/hr IV . [id number] [facility] Rx#:[id number] Other: Voiding Method Toilet # Voids 1 2 Weight 48.988 kg 48.988 kg Results 08/28/19 06:06 08/28/19 06:06 Cardiac Enzymes 08/27/19 08/27/19 Range/Units 18:14 18:14 AST 25 (14-36) U/L Troponin I <0.012 (0.000-0.034) ng/mL Coagulation 08/27/19 Range/Units 18:14 PT 11.0 (9.0-12.0) sec APTT 23.7 (22.0-30.0) sec CBC 08/27/19 08/28/19 Range/Units 18:14 06:06 WBC 2.7 L 3.3 L (3.8-10.6) k/uL RBC 4.19 3.94 (3.80-5.40) m/uL Hgb 12.6 12.3 (11.4-16.0) gm/dL Hct 38.1 36.9 (34.0-46.0) % Plt Count 142 L 137 L (150-450) k/uL Comprehensive Metabolic Panel 08/27/19 08/28/19 Range/Units 18:14 06:06 Sodium 134 L 138 (137-145) mmol/L Potassium 4.1 3.8 (3.5-5.1) mmol/L Chloride 104 110 H (98-107) mmol/L Carbon Dioxide 22 22 (22-30) mmol/L BUN 15 11 (7-17) mg/dL Creatinine 0.72 0.72 (0.52-1.04) mg/dL Glucose 88 69 L (74-99) mg/dL Calcium 8.8 8.3 L (8.4-10.2) mg/dL AST 25 (14-36) U/L ALT 20 (4-34) U/L Alkaline Phosphatase 67 (38-126) U/L Total Protein 6.1 L (6.3-8.2) g/dL Albumin 3.8 (3.5-5.0) g/dL Current Medications Generic Name Dose Route Start Last Admin Trade Name Freq PRN Reason Stop Dose Admin Sodium Chloride 1,000 mls @ 75 mls/hr 08/27/19 21:45 08/28/19 01:46 Saline 0.9% IV 75 mls/hr .[id number] [facility] Administration Naloxone HCl 0.2 mg 08/27/19 21:45 Narcan IV Q2M PRN Opioid Reversal Ondansetron HCl 4 mg 08/28/19 04:35 08/28/19 07:37 Zofran IVP 4 mg Q8HR PRN Administration Nausea And Vomiting Intake and Output 08/27/19 08/28/19 08/28/19 22:59 06:59 14:59 Intake Total 300 Balance 300 Intake: Intake, IV Titration 300 Amount Sodium Chloride 0.9% 1, 300 000 ml @ 75 mls/hr IV . [id number] [facility] Rx#:[id number] Other: Voiding Method Toilet # Voids 1 2 Weight 48.988 kg 48.988 kg 08/28/19 06:06 08/28/19 06:06
[2019-08-28] MEDS: PANTOPRAZOLE 40 MG/10 ML VIAL IVP SCH ×2 (15:08→22:03)
--- NOTE | 2019-08-28 17:20 | CONS ---
CONSULTATION DATE OF DICTATION: 08/28/2019 REASON FOR CONSULTATION: Abdominal pain, nausea, difficulty breathing and diarrhea on and off for the last 4 weeks' duration. HISTORY OF PRESENT ILLNESS: The patient is a 59-year-old pleasant white female who came to the emergency room yesterday complaining of weakness, not feeling well, some shortness of breath associated with nausea, decreased oral intake and diarrhea on and off for the last 3-4 weeks' duration. The patient was seen by Dr. Hardy on an outpatient basis and apparently she was having diarrhea, with bowel movements about 2-3 a day, loose to watery in consistency. She did have a CT of the abdomen and pelvis done at that time that showed thickening of the colon as well as a liver hemangioma. Because of possible infectious colitis she was started on Flagyl on an outpatient basis and the patient took the medication for about 2 days. Her symptoms continued to progressively get worse. She had worsening nausea and continued to have loose stools. She came to the emergency room yesterday and was subsequently admitted to the hospital for further evaluation. She denies any abdominal pain. She reports no fever, chills, night sweats. She had about one loose stool this morning. No bleeding. No melena. Most of her symptoms are related to eating; and every time she eats she feels like she gasps for air. She, however, denies any heartburn. She reports no dysphagia or odynophagia. She was treated with Pepcid on an outpatient basis, with no help. She also took Prilosec for 2 weeks, with no help. No prior history of EGD or colonoscopy in the past. No recent travel history. PAST MEDICAL HISTORY: Atrial fibrillation, hypertension and hyperlipidemia. PAST SURGICAL HISTORY: Cardiac catheterization in April of this year and cardiac ablation, hysterectomy. SOCIAL HISTORY: No smoking. No alcohol use. MEDICATIONS: Medications at home include Motrin, Flagyl, Lipitor, Tylenol. ALLERGIES: PENICILLIN. REVIEW OF SYSTEMS: CARDIOPULMONARY: No chest pain. Some shortness of breath. GENITOURINARY: No dysuria or hematuria. MUSCULOSKELETAL: Unremarkable. SKIN: Unremarkable. ENDOCRINE: Unremarkable. PSYCHIATRIC: Unremarkable. NEUROLOGY: Unremarkable. ENT/VISION: Unremarkable. CONSTITUTIONAL: Generalized fatigue, weakness. GI: As mentioned above. Decreased oral intake. No fever, chills, night sweats. PHYSICAL EXAMINATION: She appears comfortable. No apparent distress. Vital signs are stable. Blood pressure is 114/70, pulse rate 56, temperature 98.1. HEENT examination unremarkable. Conjunctivae pink. Sclerae anicteric. Oral cavity no lesions. NECK: No JVD or lymph node enlargement. CHEST: Clear to auscultation. HEART: Regular rate and rhythm. ABDOMEN: Soft. It was non-tender, non-distended. Liver and spleen were not palpable. Bowel sounds are positive. No organomegaly. EXTREMITIES: No pedal edema. SKIN: No rashes. NEUROLOGIC: She is alert and oriented x3. No focal deficits. LABS/IMAGING: Labs from yesterday show WBC 2.7, hemoglobin 12.6, platelets normal. Basic metabolic panel is within normal limits. AST, ALT, total bilirubin and alkaline phosphatase are normal. Phosphorus is slightly low at 2.3. CT of the abdomen and pelvis done 2 days ago showed mild diffuse thickening of the colon suspicious for colitis and a 2.7 cm liver hemangioma. IMPRESSION: 1. Nausea, vomiting, abdominal discomfort with diarrhea on and off for the last 2 weeks' duration. She was seen by Dr. Hardy and was started on Flagyl on an outpatient basis for possible infectious colitis. The patient took the medication for 2 days and then she started having worsening symptoms and hence came to the emergency room yesterday and was admitted to the hospital for further evaluation. Since being here, she only had one loose bowel movement this morning. She was started on empiric antibiotics with IV Flagyl, and stool cultures have been ordered which are still pending. She never had a colonoscopy in the past. Most likely we are dealing with an infectious etiology. 2. Decreased appetite/difficulty eating; complaining of shortness of breath and epigastric fullness after eating on and off for the last 4 weeks' duration. Rule out peptic ulcer disease versus gastroesophageal reflux disease. 3. Liver hemangioma. 4. Weight loss of 10 pounds. 5. History of supraventricular tachycardia in the past, status post cardiac ablation by Dr. Buitrago. RECOMMENDATIONS: 1. Will continue with symptomatic and supportive therapy for now. 2. Continue with IV Protonix 40 mg daily. 3. Keep her on a clear liquid diet. 4. Continue with empiric antibiotics with IV Flagyl. 5. Repeat labs in the morning. 6. If her symptoms continue to progressively get worse, we will consider endoscopic evaluation during this hospitalization. Otherwise, the patient is already scheduled for an EGD and colonoscopy by Dr. Hardy on an outpatient basis next Saturday. The plan was discussed with the patient. She is agreeable to it. Thank you for this consultation. NERY / MATHIEU: [id number] /
[2019-08-28] MEDS: ATORVASTATIN 20 MG TAB PO SCH (22:03)
--- NOTE | 2019-08-28 23:19 | P.HPIM ---
History of Present Illness H&P Date: 08/28/19 Chief Complaint: weakness Clarence Delgado is a 59 yo F with PMH of SVT s/p ablation, recent cath, who presented to the ED complaining of weakness. She had seen Dr. Hardy outpatient last week and at that time complained of nausea, vomiting, and diarrhea after meals with 3+ bowel movements daily. She had an US and CT which showed pancolitis and pt was started on flagyl. She states that she continued to experience nausea and vomiting and was only able to keep a few doses of flagyl down. Her weakness continued to increase and pt also began to experience chest tightness associated with her vomiting and she presented to the hospital. Currently, she states that she does have some improvement with IV fluid therapy and IV Flagyl. She is on a clear liquid diet and states that she is able to keep liquids down at this time. She originally was scheduled for a upper and lower endoscopy in 1 week. She denies any fevers, chills, chest pain or shortness of breath. She has never had a previous colonoscopy. She denies any blood in her stool. Review of Systems All systems: negative Constitutional: Reports fatigue, Reports malaise, Reports weakness, Denies chills, Denies fever Eyes: denies blurred vision, denies pain Ears, nose, mouth and throat: Denies headache, Denies sore throat Cardiovascular: Denies chest pain, Denies shortness of breath Respiratory: Denies cough Gastrointestinal: Reports diarrhea, Reports nausea, Reports vomiting, Denies abdominal pain Genitourinary: Denies dysuria, Denies hematuria Musculoskeletal: Denies myalgias Integumentary: Denies pruritus, Denies rash Neurological: Denies numbness, Denies weakness Psychiatric: Denies anxiety, Denies depression Endocrine: Denies fatigue, Denies weight change Past Medical History Past Medical History: Atrial Fibrillation, Hyperlipidemia Additional Past Medical History / Comment(s): high cholestrol History of Any Multi-Drug Resistant Organisms: None Reported Past Surgical History: Ablation, Heart Catheterization, Hysterectomy Additional Past Surgical History / Comment(s): heart cath june 2019 Past Psychological History: No Psychological Hx Reported Smoking Status: Never smoker Past Alcohol Use History: None Reported Past Drug Use History: None Reported Medications and Allergies Home Medications Medication Instructions Recorded Confirmed Type Acetaminophen [Tylenol] 500 mg PO DAILY PRN 08/27/19 08/27/19 History Atorvastatin Calcium [Lipitor] 20 mg PO HS 08/27/19 08/27/19 History Ibuprofen [Motrin Ib] 600 mg PO DAILY PRN 08/27/19 08/27/19 History metroNIDAZOLE [Flagyl] 500 mg PO TID 08/27/19 08/27/19 History Allergies Allergy/AdvReac Type Severity Reaction Status Date / Time Penicillins Allergy Rash/Hives Verified 08/27/19 22:33 Physical Exam Vitals: Vital Signs Temp Pulse Resp BP Pulse Ox 08/28/19 21:00 98.2 F 55 L 18 120/74 98 08/28/19 12:26 98.1 F 56 L 14 114/70 100 08/28/19 05:02 98.3 F 58 L 16 118/66 99 08/28/19 00:00 18 08/27/19 23:25 98.6 F 55 L 18 133/74 100 Intake and Output 08/28/19 08/28/19 08/29/19 14:59 22:59 06:59 Intake Total 700 Balance 700 Intake: Intake, IV Titration 700 Amount Sodium Chloride 0.9% 1, 600 000 ml @ 75 mls/hr IV . [id number] [facility] Rx#:[id number] metroNIDAZOLE-NS PMX 500 100 mg In Saline 1 100ml.bag @ 100 mls/hr IVPB Q8HR [facility] Rx#:[id number] Other: Voiding Method Toilet Toilet Weight 48.988 kg General: well nourished, well developed, NAD. Vitals reviewed Eyes: PERRL, EOMI, conjunctiva normal HENT: normocephalic, mucus membranes moist Neck: supple, no JVD Lungs: normal respiratory effort, no wheezes or rales CV: Regular rate and rhythm, no murmur. Peripheral pulses 2+ Abdomen: soft, nondistended, no organomegaly Lymph: no cervical or axillary LAD Skin: warm and dry. Neuro: A&Ox3, normal mood and affect Results CBC & Chem 7: 08/28/19 06:06 08/28/19 06:06 Labs: Abnormal Lab Results - Last 24 Hours (Table) 08/28/19 08/28/19 08/28/19 Range/Units 06:06 06:06 06:06 WBC 3.3 L (3.8-10.6) k/uL Plt Count 137 L (150-450) k/uL Lymphocytes # 0.6 L (1.0-4.8) k/uL Chloride 110 H (98-107) mmol/L Glucose 69 L (74-99) mg/dL Calcium 8.3 L (8.4-10.2) mg/dL Prealbumin 16.0 L (18.0-42.0) mg/dL Assessment and Plan (1) Weakness Current Visit: Yes Status: Acute Code(s): R53.1 - WEAKNESS SNOMED Code(s): 27087705 (2) Pancolitis Current Visit: Yes Status: Acute Code(s): K51.00 - ULCERATIVE (CHRONIC) PANCOLITIS WITHOUT COMPLICATIONS SNOMED Code(s): 673072299 (3) Hyponatremia Current Visit: Yes Status: Acute Code(s): E87.1 - HYPO-OSMOLALITY AND HYPONATREMIA SNOMED Code(s): 61792804 (4) Nausea & vomiting Current Visit: Yes Status: Acute Code(s): R11.2 - NAUSEA WITH VOMITING, UNSPECIFIED SNOMED Code(s): 63557070 (5) Chest discomfort Current Visit: No Status: Acute Code(s): R07.89 - OTHER CHEST PAIN SNOMED Code(s): 213827918 Plan: 1. Weakness, malaise, nausea and vomiting. Likely secondary to colitis. IV protonix and flagyl. Clear liquid diet. Surgery consult 2. Chest discomfort. Suspect gastritis with vomiting. Cardiology consult with previous cardiac history
[2019-08-29] MEDS: metroNIDAZOLE-NS PMX 500 MG in SALINE 1 100ML.BAG IVPB SCH ×3 (00:49→17:22)
[2019-08-29] MEDS: ACETAMINOPHEN TAB 325 MG TAB PO PRN ×4 (03:51→18:09)
[2019-08-29] MEDS: PANTOPRAZOLE 40 MG/10 ML VIAL IVP SCH (09:13)
--- NOTE | 2019-08-29 10:39 | P.PN ---
Subjective Progress Note Date: 08/29/19 Patient seen and examined at bedside. States that she did have a headache overnight. Continuing to tolerate clear liquid diet. Denies vomiting this morning. Denies abdominal pain. Objective - Vital Signs Vital signs: Vital Signs Temp 98.5 F 08/29/19 07:18 Pulse 62 08/29/19 07:18 Resp 18 08/29/19 07:18 BP 99/56 08/29/19 07:18 Pulse Ox 98 08/29/19 07:18 Intake & Output 08/28/19 08/29/19 08/29/19 18:59 06:59 18:59 Intake Total 700 550 900 Balance 700 550 900 Weight 48.988 kg Intake: Intake, IV Titration 700 700 Amount Dextrose 5%-0.45% NaCl 1, 600 000 ml @ 75 mls/hr IV . [id number] [facility] Rx#:[id number] Sodium Chloride 0.9% 1, 600 000 ml @ 75 mls/hr IV . [id number] [facility] Rx#:[id number] metroNIDAZOLE-NS PMX 500 100 100 mg In Saline 1 100ml.bag @ 100 mls/hr IVPB Q8HR [facility] Rx#:[id number] Oral 550 200 Other: Voiding Method Toilet Toilet # Voids 2 1 - Constitutional General appearance: Present: cooperative, no acute distress - EENT Eyes: Present: PERRLA - Gastrointestinal Gastrointestinal Comment(s): Soft, nontender, nondistended, no rebound, no guarding - Musculoskeletal Musculoskeletal: Present: generalized weakness - Psychiatric Psychiatric: Present: A&O x's 3 - Labs CBC & Chem 7: 08/28/19 06:06 08/28/19 06:06 Labs: Abnormal Lab Results - Last 24 Hours (Table) 08/28/19 Range/Units 06:06 Prealbumin 16.0 L (18.0-42.0) mg/dL Assessment and Plan (1) Nausea & vomiting Narrative/Plan: Patient was evaluated by GI service, Dr. Valles. Stool studies are pending at this time. No plan for acute surgical or endoscopic intervention unless sy mptoms worsen. Continue with supportive care and antibiotic management as it does appear that this is an infectious etiology. Will continue to follow and make recommendations based on patient's clinical progress. Current Visit: Yes Status: Acute Code(s): R11.2 - NAUSEA WITH VOMITING, UNSPECIFIED SNOMED Code(s): 61499266
--- NOTE | 2019-08-29 14:11 | PN ---
PROGRESS NOTE DATE OF DICTATION: August 29, 2019. REQUESTING PHYSICIAN: Dr. Hardy The patient is a 59-year-old pleasant white female admitted to the hospital with nausea, heartburn, chest discomfort, diarrhea on and off for the last 2-3 weeks duration. She is complaining of severe headaches through the night. Remains on a clear liquid diet, tolerating well. She has no further episodes of diarrhea since being in the hospital. She reports no abdominal pain. Continues to have some shortness of breath and some chest discomfort. No nausea, vomiting. Remains on empiric antibiotics for possible acute infectious colitis. PHYSICAL EXAMINATION: Appears comfortable, no apparent distress. VITAL SIGNS: Stable. Blood pressure 99/56, pulse is 62, temperature 98.5. HEENT examination unremarkable. Conjunctivae pink. Sclerae anicteric. Oral cavity no lesions. NECK no JVD or lymph node enlargement. CHEST was clear to auscultation. HEART: Regular rate and rhythm. ABDOMEN: Soft, it was nontender, nondistended. Bowel sounds are positive. No organomegaly. EXTREMITIES: No pedal edema. SKIN no rashes. NEUROLOGIC: Alert and oriented x3. No focal deficits. LABS: No labs available from today. Labs from yesterday were within normal limits. Stool testing was obtained which are still pending at the time of this dictation as patient did not have any bowel movements yesterday. IMPRESSION: 1. Acute gastroenteritis with nausea, vomiting, diarrhea on and off for the last 2-3 weeks duration. Patient on empiric antibiotics currently and her symptoms seem to be gradually improving. She had no further episodes of diarrhea since being in the hospital. 2. Chest pain, some heartburn, possible gastroesophageal reflux disease, on IV Protonix 40 mg daily. 3. Chronic headaches. RECOMMENDATIONS: 1. Continue with empiric antibiotics. 2. Continue Protonix 40 mg twice daily. 3. Advance diet as tolerated. 4. Increase ambulation. 5. Pain medications for chronic headaches. 6. If the patient's symptoms improve, she can be discharged home in 1-2 days with outpatient endoscopic workup by Dr. Hardy that is scheduled for next Saturday. Thank you for this consultation. MMODL / IJN: [id number] /
[2019-08-29] MEDS: DEXTROSE 5%-0.45% NACL 1,000 ML IV SCH ×2 (17:05→20:48)
[2019-08-29] MEDS ORDERED: ALPRAZolam 0.25 MG TAB PO PRN (17:07)
[2019-08-29] MEDS: IOPAMIDOL CONTRAST (ORAL USE) VIAL PO PRN ×2 (17:21→18:07)
--- NOTE | 2019-08-29 18:35 | PN ---
PROGRESS NOTE DATE OF SERVICE: 08/29/2019 I am covering for Dr. Velez. This 59-year-old woman with a past medical history of multiple medical problems, was admitted with gastroenteritis symptoms. The patient initially had dysphagia and cough and shortness of breath after eating also. The patient also complained of generalized weakness as well and mild headaches. The patient also had some nausea, vomiting. Dr. Valles and Dr. Hardy is following the patient closely. Dr. Valles has seen the patient. The patient was treated as an outpatient for infectious colitis. The patient had EGD and colonoscopy scheduled by Dr. Hardy on Saturday. Otherwise, plans are may continue to monitor. PAST MEDICAL HISTORY: Reviewed. REVIEW OF SYSTEMS: Cardiovascular: No angina. Respiration as mentioned earlier. GI: As mentioned earlier. NERVOUS SYSTEM: No numbness or weakness. CURRENT MEDICATIONS: Reviewed and include: 1. Tylenol p.r.n. 2. Lipitor. 3. Dextrose. 4. Flagyl IV. 5. Narcan. 6. Zofran. 7. Protonix. PHYSICAL EXAM: Patient is alert, oriented x3. Pulse 49, blood pressure 130/77, respirations 18. Temperature 97.7. Pulse ox 100 percent on room air. HEENT: Conjunctivae normal. NECK: No JVD. CARDIOVASCULAR: S1, S2 muffled. RESPIRATORY: Breath sounds diminished in the bases. A few rhonchi. No crackles. ABDOMEN: Soft, mild diffuse discomfort. No guarding. No rigidity. There is no mass palpable. LEGS: No edema, no swelling. NERVOUS SYSTEM: No focal deficits. LABS: WBC 3.3, platelets 137. The prealbumin is 16. Covid-19 is negative. ASSESSMENT: 1. Possible nonspecific infectious colitis. 2. Dysphagia for evaluation. 3. Cough and shortness of breath for evaluation. 4. Leukopenia. 5. Thrombocytopenia. 6. Hyponatremia. 7. Moderate protein calorie malnutrition because of poor p.o. intake. 8. History atrial fibrillation. 9. Hyperlipidemia. 10.History of hypercholesteremia. 11.History of cardiac ablation. 12.History of cardiac catheterization. RECOMMENDATIONS AND DISCUSSION: In this 59-year-old woman who presented with multiple complex medical issues, we will monitor the patient closely. Continue the current medications, symptomatic treatment. Continue the IV antibiotics. I would also recommend a CT scan of the chest and continued workup also. A CT scan of the abdomen and pelvis was done last month which showed benign hepatic lesions and diffuse mild chronic colon thickening. We will repeat the CT abdomen as well. Prognosis guarded because of multiple complex medical issues. Further recommendations to follow. Repeat labs also will be noted. The exact etiology of bicytopenia is also unknown. MMODL / IJN: [id number] /
--- NOTE | 2019-08-29 19:17 | XR ---
EXAMINATION TYPE: XR chest 1V portable DATE OF EXAM: 08/29/2019 COMPARISON: 08/13/2019 HISTORY: Chest pain. Short of breath. TECHNIQUE: FINDINGS: Heart is normal. Lungs are clear of infiltrate. Costophrenic angles are clear. There is no heart failure. There is probably some emphysematous changes in both upper lobes. Bony thorax is intac t. IMPRESSION: No active cardiopulmonary disease. Normal heart.
--- NOTE | 2019-08-29 20:08 | CT ---
EXAMINATION TYPE: CT ChestAbdPelvis wo con DATE OF EXAM: 08/29/2019 COMPARISON: CT abdomen 08/18/2019 HISTORY: Dysphagia and colitis. CT DLP: 331.6 mGycm Automated exposure control for dose reduction was used. Images were obtained from the thoracic inlet to the floor the pelvis without IV contrast. There is or al contrast only. There is pulmonary hyperinflation with some flattening of the diaphragm. There is no sign of pneumoth orax. Lungs are clear of consolidation. There is no evidence of a pulmonary mass. Heart size is allyssa l. There is no mediastinal adenopathy. There are no hilar masses. Bony thorax is intact. There is no pericardial effusion. Stomach appears normal. Liver spleen pancreas appear normal. Bile ducts are not dilated. Gallbladder appears absent. There is oral contrast extending into the right colon. There is no sign of a bowel obstruction. There is no mesenteric edema. There is no ascites or free air. Bladder distends smoothly. There is no inguinal hernia. There is no evidence of a pelvic mass. There is no free fluid in the pelvis. Appendix is partly filled with contrast and appears normal. There is no adrenal mass. Kidneys have normal size. There is mild right side hydronephrosis. Right ureter does not appear dilated. Thoracic and lumbar spine appear intact. Bony pelvis is intact. IMPRESSION: Mild right-sided hydronephrosis unchanged. No renal atrophy. No evidence of renal calculus. Normal ap pendix. No sign of acute abdomen and pelvis. There is probably COPD. No change compared to old exam. No evidence of colitis.
[2019-08-29] MEDS: ATORVASTATIN 20 MG TAB PO SCH (20:48)
[2019-08-29] MEDS: ONDANSETRON 4 MG/2 ML VIAL IVP PRN (20:48)
[2019-08-29] MEDS: PANTOPRAZOLE 40 MG TABLET PO SCH (20:49)
[2019-08-30] MEDS: metroNIDAZOLE-NS PMX 500 MG in SALINE 1 100ML.BAG IVPB SCH ×2 (00:27→08:16)
[2019-08-30] MEDS ORDERED: TRIMETHOBENZAMIDE 100 MG/ML 2 ML VIAL IM PRN (02:05)
[2019-08-30] MEDS: ACETAMINOPHEN TAB 325 MG TAB PO PRN ×2 (05:11→23:03)
[2019-08-30 06:40] LABS: Basophils % (A) 0 %; Eosinophils % (A) 1 %; HCT 38.5 % (34.0-46.0); HGB 12.2 gm/dL (11.4-16.0); Lymphocytes # (A) 0.5 k/uL (1.0-4.8); Lymphocytes % (A) 20 %; MCHC 31.6 g/dL (31.0-37.0); MCV 91.7 fL (80.0-100.0); Mean Platelet Volume 7.5; Monocytes # (A) 0.2 k/uL (0-1.0); Monocytes % (A) 9 %; Neutrophils # (A) 1.8 k/uL (1.3-7.7); Neutrophils % (A) 68 %; Platelet Count 128 k/uL (150-450); RDW 13.5 % (11.5-15.5); WBC 2.6 k/uL (3.8-10.6)
[2019-08-30 06:41] LABS: African American GFR (CKD) >90 (>60 ml/min/1.73 sqM); Anion Gap 6 mmol/L; Blood Urea Nitrogen 4 mg/dL (7-17); Calcium 8.6 mg/dL (8.4-10.2); Carbon Dioxide 23 mmol/L (22-30); Chloride 106 mmol/L (98-107); Glucose 113 mg/dL (74-99); Non-African American GFR(CKD) >90 (>60 ml/min/1.73 sqM); Sodium 135 mmol/L (137-145)
[2019-08-30] MEDS: FOLIC ACID 1 MG TAB PO SCH (08:12)
[2019-08-30] MEDS: MULTIVITAMINS, THERA 1 EACH TAB PO SCH (08:13)
[2019-08-30] MEDS: POTASSIUM CHLORIDE ER 20 MEQ TAB.ER PO SCH ×2 (08:13→10:11)
[2019-08-30] MEDS: PANTOPRAZOLE 40 MG TABLET PO SCH ×2 (08:13→21:03)
[2019-08-30] MEDS: HYDROcodone/APAP 5-325MG 1 EACH TAB PO PRN (08:14)
[2019-08-30] MEDS: ONDANSETRON 4 MG/2 ML VIAL IVP PRN ×2 (08:22→16:19)
--- NOTE | 2019-08-30 10:18 | P.PN ---
Subjective Progress Note Date: 08/30/19 Patient seen and examined at bedside. Patient states that after CT scan yesterday, she has had multiple episodes of diarrhea. Stool studies are pending. She denies having headache today. Objective - Vital Signs Vital signs: Vital Signs Temp 97.6 F 08/30/19 05:00 Pulse 51 L 08/30/19 05:00 Resp 19 08/30/19 05:00 BP 121/70 08/30/19 05:00 Pulse Ox 100 08/29/19 22:13 Intake & Output 08/29/19 08/30/19 08/30/19 18:59 06:59 18:59 Intake Total 1000 1300 Output Total 600 Balance 400 1300 Intake: Intake, IV Titration 800 700 Amount Dextrose 5%-0.45% NaCl 1, 600 600 000 ml @ 75 mls/hr IV . [id number] [facility] Rx#:[id number] metroNIDAZOLE-NS PMX 500 200 100 mg In Saline 1 100ml.bag @ 100 mls/hr IVPB Q8HR [facility] Rx#:[id number] Oral 200 600 Output: Urine 600 Other: Voiding Method Toilet # Voids 1 3 # Bowel Movements 2 1 - Constitutional General appearance: Present: cooperative, no acute distress - EENT Eyes: Present: PERRLA - Respiratory Details: No difficulty with respiration - Gastrointestinal Gastrointestinal Comment(s): Soft, nontender, nondistended, no rebound, guarding - Musculoskeletal Musculoskeletal: Present: generalized weakness - Psychiatric Psychiatric: Present: A&O x's 3 - Labs CBC & Chem 7: 08/30/19 05:57 08/30/19 05:57 Labs: Abnormal Lab Results - Last 24 Hours (Table) 08/30/19 08/30/19 Range/Units 05:57 05:57 WBC 2.6 L (3.8-10.6) k/uL Plt Count 128 L (150-450) k/uL Lymphocytes # 0.5 L (1.0-4.8) k/uL Sodium 135 L (137-145) mmol/L Potassium 3.0 L (3.5-5.1) mmol/L BUN 4 L (7-17) mg/dL Glucose 113 H (74-99) mg/dL Assessment and Plan (1) Nausea & vomiting Narrative/Plan: 59-year-old female with nausea, vomiting, diarrhea; likely infectious enteritis/colitis etiology - CT of the abdomen and pelvis was reviewed. This was done with oral contrast. There does not appear to be any significant residual inflammatory changes of the bowel. Patient did complain of multiple episodes of diarrhea. This is likely secondary to addition of oral contrast. Regardless, stool studies have been sent and those will be evaluated. - Okay to continue to advance diet per GI recommendations - No plan for acute surgical intervention at this time Current Visit: Yes Status: Acute Code(s): R11.2 - NAUSEA WITH VOMITING, UNSPECIFIED SNOMED Code(s): 05477508
--- NOTE | 2019-08-30 12:18 | P.CNPUL ---
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 I was asked to evaluate her for some increased shortness of breath and cough. The patient attributes her shortness of breath and cough mainly to food intake. She tells the that every time she has some food and regardless of the foot material, she gets shortness of breath and at times she has a coughing. She denies having any aspiration. No recurrent pneumonias. No previous history of lung disease or disorder. Note that she is currently being investigated for ongoing diarrhea and the patient is being treated for infectious colitis and the patient is ultimately going to have an EGD and colonoscopy done. She is a bit frustrated. She is at times tearful. She doesn't understand all these vague symptoms of that occurring to her including generalized weakness, nausea, diarrhea, shortness of breath, at times she is having also chest discomfort despite the fact that she has undergone a complete cardiac workup including a cardiac c atheterization that was normal. No fever. No chills. No history of any congestion heart failure. No childhood asthma. No other systemic illnesses. History. She takes Lipitor for hyperlipidemia. She is also currently on Flagyl under the direction of general surgery and gastroenterology were monitoring her diarrhea. As part of her workup, she underwent a CAT scan of the chest abdomen and pelvis and a CAT scan of the chest was essentially within normal and so was the CAT scan of the abdomen which only showed a mild right-sided hydronephrosis which is a chronic finding. No renal atrophy. No kidney stones. Normal appendix. No acute abdominal or pelvic finding. Lungs are essentially clear. She is currently on room air oxygen. Her CRP is within normal limits. Review of Systems Constitutional: Reports poor appetite, Reports weakness, Reports weight loss Eyes: denies as per HPI, denies blurred vision, denies bulging eye, denies decreased vision, denies diplopia, denies discharge, denies dry eye, denies irritation, denies itching, denies pain, denies photophobia, denies loss of peripheral vision, denies loss of vision, denies tunnel vision/blind spots Ears: deny: decreased hearing, ear discharge, earache, tinnitus Ears, nose, mouth and throat: Denies headache, Denies sore throat Breasts: absent: as per HPI, change in shape, gynecomastia, masses, nipple discharge, pain, skin changes, swelling Cardiovascular: Reports dyspnea on exertion Respiratory: Reports cough, Reports dyspnea Gastrointestinal: Reports diarrhea, Reports nausea Genitourinary: Reports as per HPI Menstruation: Reports as per HPI Musculoskeletal: Reports as per HPI, Reports muscle weakness Musculoskeletal: absent: ankle pain, ankle stiffness, ankle swelling Integumentary: Denies pruritus, Denies rash Neurological: Reports headaches, Reports weakness Psychiatric: Reports as per HPI Endocrine: Reports as per HPI, Reports fatigue Hematologic/Lymphatic: Reports as per HPI Allergic/Immunologic: Reports as per HPI Past Medical History Past Medical History: Hyperlipidemia Additional Past Medical History / Comment(s): Hyperlipidemia, AV janay reentrant tachycardia, post-ablation, History of Any Multi-Drug Resistant Organisms: None Reported Past Surgical History: Ablation, Heart Catheterization, Hysterectomy Additional Past Surgical History / Comment(s): heart cath june 2019 Past Psychological History: No Psychological Hx Reported Smoking Status: Never smoker Past Alcohol Use History: None Reported Past Drug Use History: None Reported Medications and Allergies Home Medications Medication Instructions Recorded Confirmed Type Acetaminophen [Tylenol] 500 mg PO DAILY PRN 08/27/19 08/27/19 History Atorvastatin Calcium [Lipitor] 20 mg PO HS 08/27/19 08/27/19 History Ibuprofen [Motrin Ib] 600 mg PO DAILY PRN 08/27/19 08/27/19 History metroNIDAZOLE [Flagyl] 500 mg PO TID 08/27/19 08/27/19 History Allergies Allergy/AdvReac Type Severity Reaction Status Date / Time Penicillins Allergy Rash/Hives Verified 08/27/19 22:33 Physical Exam Vitals: Vital Signs Temp Pulse Resp BP Pulse Ox 08/30/19 11:26 98.4 F 69 18 117/68 100 08/30/19 05:00 97.6 F 51 L 19 121/70 08/29/19 22:13 97.7 F 58 L 17 131/70 100 08/29/19 12:58 97.6 F 49 L 18 133/76 100 Intake and Output 08/29/19 08/30/19 08/30/19 22:59 06:59 14:59 Intake Total 1300 Balance 1300 Intake: Intake, IV Titration 700 Amount Dextrose 5%-0.45% NaCl 1, 600 000 ml @ 75 mls/hr IV . [id number] [facility] Rx#:[id number] metroNIDAZOLE-NS PMX 500 100 mg In Saline 1 100ml.bag @ 100 mls/hr IVPB Q8HR [facility] Rx#:[id number] Oral 600 Other: Voiding Method Toilet # Voids 2 3 # Bowel Movements 2 2 1 The patient appeared well nourished and normally developed. Vital signs as documented. Head exam is unremarkable. No scleral icterus or corneal arcus noted. Neck is without jugular venous distension, thyromegaly, or carotid bruits. Carotid upstrokes are brisk bilaterally. Lungs are clear to auscultation and percussion. Cardiac exam reveals the PMI to be normally sized and situated. Rhythm is regular. First and second heart sounds normal. No murmurs, rubs or gallops. Abdominal exam reveals normal bowel sounds, no masses, no organomegaly and no aortic enlargement. Extremities are nonedematous and both femoral and pedal pulses are normal.Examination of the skin revealed no evidence of significant rashes, suspicious appearing nevi or other concerning lesions. Neurologically she is awake and alert and is no focal neurological deficits. Results - Laboratory Findings CBC and BMP: 08/30/19 05:57 08/30/19 05:57 PT/INR, D-dimer PT 11.0 sec (9.0-12.0) 08/27/19 18:14 INR 1.1 (<1.2) 08/27/19 18:14 Abnormal lab findings: Abnormal Labs 08/27/19 08/27/19 08/27/19 18:14 18:14 20:43 WBC 2.7 L Plt Count 142 L Lymphocytes # 0.4 L Sodium 134 L Potassium Chloride BUN Glucose Calcium Phosphorus 2.3 L Total Protein 6.1 L Prealbumin Urine Protein Trace H Urine Ketones 4+ H 08/28/19 08/28/19 08/28/19 06:06 06:06 06:06 WBC 3.3 L Plt Count 137 L Lymphocytes # 0.6 L Sodium Potassium Chloride 110 H BUN Glucose 69 L Calcium 8.3 L Phosphorus Total Protein Prealbumin 16.0 L Urine Protein Urine Ketones 08/30/19 08/30/19 05:57 05:57 WBC 2.6 L Plt Count 128 L Lymphocytes # 0.5 L Sodium 135 L Potassium 3.0 L Chloride BUN 4 L Glucose 113 H Calcium Phosphorus Total Protein Prealbumin Urine Protein Urine Ketones - Diagnostic Findings CT scan - chest: image reviewed Assessment and Plan Plan: 1 shortness of breath and cough without any clear indication for any form of chronic lung disease or disorder. For deformity status is stable. CAT scan of the chest is stable. She is oxygenating well for now. She has a combination and multitude of other symptoms including diarrhea, generalized weakness, some chest discomfort, headache, and there is no clear explanation for ongoing extrapulmonary manifestations. She tried to relate her shortness of breath so foot intake and I'm not sure if this is a true association. I do not see patient with her swallow to put that the high risk of aspiration. I doubt any form of food ALLERGIES. No bronchial asthma. 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 She may be having some shortness of breath which is a manifestation of her ongoing comorbidities. I would leave the GI workup to be completed , and if need be within the evaluate her condition on outpatient basis. I think it's worthwhile for this patient to be evaluated for diarrhea and she will need an EGD and colonoscopy. She will benefit also from a hematologic evaluation regarding her bicytopenia. No need for any inhalation treatments. Outpatient PFT.
[2019-08-30] MEDS ORDERED: Magnesium Replacement Protocol 1 EACH MISC MISCELLANE PRN (12:26)
[2019-08-30] MEDS ORDERED: Potassium Replacement Protocol 1 EACH MISC MISCELLANE PRN (12:26)
--- NOTE | 2019-08-30 13:40 | P.PN ---
Progress Note - Text Progress Note Date: 08/30/19 Consult for bicytopenia appreciated. Chart and current labs reviewed. Additional labs ordered. Formal consult in AM
[2019-08-30] MEDS: HEPARIN SODIUM,PORCINE 5,000 UNIT/ML 1 ML VIAL SQ SCH ×2 (13:55→23:03)
[2019-08-30] MEDS: DEXTROSE 5%-0.45% NACL 1,000 ML IV SCH (14:01)
--- NOTE | 2019-08-30 15:39 | PN ---
PROGRESS NOTE DATE OF DICTATION: August 30, 2019 Patient is a 59-year-old pleasant white female admitted to the hospital with abdominal discomfort, nausea, not feeling well, intermittent diarrhea on and off for the last 1-2 weeks duration. He has been complaining of shortness of breath with eating for the last few days. CT of the abdomen done 3 or 4 days ago did show evidence of possible infectious colitis and presently on empiric antibiotics. She states that last night she had a CT of the abdomen and pelvis done. After that, she had diarrhea with at least [address] of the abdomen and pelvis as well as chest CT showed mild right-sided hydronephrosis, but otherwise unremarkable. She does not feel well. She complains of fatigue and tiredness and cramping lower abdominal pain. No nausea, vomiting. PHYSICAL EXAMINATION: Appears comfortable in no apparent distress. Vital signs stable. Blood pressure is 117/68, pulse rate is 69, temperature 98.4. HEENT examination unremarkable. Conjunctivae pink. Sclerae anicteric. Oral cavity no lesions. NECK no JVD or lymph node enlargement. CHEST was clear to auscultation. HEART: Regular rate and rhythm. ABDOMEN: Soft, it was nontender, nondistended. Bowel sounds are positive. No organomegaly. EXTREMITIES no pedal edema. SKIN no rashes. NEUROLOGIC: Alert and oriented x3. No focal deficits. LABS: From today WBC 2.6, hemoglobin 12.2, platelets 128. Basic metabolic panel showed a potassium of 3. Rest of the labs are within normal limits. C difficile toxin is negative. IMPRESSION: 1. Intermittent diarrhea for the last 2 weeks duration possible infectious colitis on empiric antibiotics with Flagyl. The diarrhea was doing well. C. dif toxin negative. Last night after the CT scan, she had some diarrhea, but this morning is doing better. 2. Dysphagia to solids. 3. Occasional nausea, vomiting. 4. Shortness of breath. CT scan of the chest is negative. Dr. Matias following the patient closely. 5. Electrolyte abnormalities. RECOMMENDATIONS: 1. Antiemetics as needed. 2. Continue empiric antibiotics. 3. Continue Protonix 40 mg twice daily. 4. Will obtain barium esophagogram to evaluate for dysphagia. 5. EGD and possible colonoscopy either as an inpatient or outpatient based on the clinical course. Thank you for this consultation. MMODL / IJN: [id number] /
[2019-08-30] MEDS: metroNIDAZOLE 500 MG TAB PO SCH ×2 (16:19→23:03)
--- NOTE | 2019-08-30 16:44 | PN ---
PROGRESS NOTE DATE OF SERVICE: 08/30/2019 I am covering for Dr. Velez. This 59-year-old woman was admitted with multiple symptomatology, is being closely monitored. Dr. Hardy is planning upper and lower endoscopies later this week. I discussed with Dr. Valles. Recommended barium swallow at this time. No chest pain. No palpitations. No fever. The patient also had a CT scan of the chest, abdomen and pelvis which showed no evidence of any colitis at this time. Blood work is also being monitored. Dr. Matias has seen the patient from the pulmonary point of view and Hematology/ Oncology following the patient for evaluation of the bicytopenia. PAST MEDICAL HISTORY: Reviewed. REVIEW OF SYSTEMS: Cardiovascular: No angina. Respiration as mentioned earlier. GI: As mentioned earlier. no dysuria. Nervous system: No numbness or weakness. CURRENT MEDICATIONS: Reviewed and include: 1. Tylenol p.r.n. 2. [place] 5 mg q.6 p.r.n. 3. Xanax 0.5 t.i.d. 4. Lipitor 20 mg q.h.s. 5. Folic acid 1 mg daily. 6. Heparin. 7. Flagyl. 8. P.r.n. medications. 9. Multivitamins. 10.Narcan. 11.Zofran. 12.Protonix. 13.Tigan. PHYSICAL EXAM: Patient is alert, oriented x3. Pulse is 69, blood pressure 117/60, respiration 18, temperature 98.4, pulse ox 100 percent on room air. HEENT: Conjunctivae normal. NECK: No JVD. CARDIOVASCULAR: S1, S2 muffled. RESPIRATION: Breath sounds diminished in the bases. A few scattered rhonchi and crackles. ABDOMEN: Soft, nontender. LEGS are no edema. No swelling. NERVOUS SYSTEM: No focal deficits. LAB STUDIES: WBC 2.7 and platelets 128. Sodium 130, potassium 3. C diff is negative. ASSESSMENT: 1. Possible nonspecific infectious colitis. 2. Dysphagia for evaluation. 3. Bicytopenia for evaluation with leukopenia, thrombocytopenia. 4. Cough, shortness of breath for evaluation, possibly asthmatic bronchitis. 5. Hyponatremia. 6. Moderate protein calorie malnutrition because of poor intake and weight loss. 7. History of atrial fibrillation. 8. Hyperlipidemia. 9. History of hypercholesteremia. 10.History of cardiac ablation, history of cardiac catheterization. 11.FULL CODE. RECOMMENDATIONS AND DISCUSSION: In this 59-year-old woman who presented with multiple complex medical issues, at this time, I recommend to continue current medications, symptomatic treatment. Potassium supplementation. Monitor sodium closely. Otherwise Hematology/Oncology evaluation for bicytopenia. I would also recommend a barium swallow for evaluation of the dysphagia. Discussed with Dr. Valles. She will talk to Dr. Hardy regarding the EGD and colonoscopy. Overall prognosis guarded because of multiple complex medical issues. Further recommendations to follow. Dr. Velez will follow. MMCELSAL / VALEN: [id number] /
[2019-08-30] MEDS ORDERED: POTASSIUM CHLORIDE ER 20 MEQ TAB.ER PO SCH (20:00)
[2019-08-30] MEDS: ATORVASTATIN 20 MG TAB PO SCH (21:03)
[2019-08-31] MEDS: DEXTROSE 5%-0.45% NACL 1,000 ML IV SCH ×2 (02:04→14:45)
[2019-08-31] MEDS: HYDROcodone/APAP 5-325MG 1 EACH TAB PO PRN (04:23)
[2019-08-31 06:35] LABS: Basophils % (A) 0 %; Eosinophils % (A) 1 %; HCT 35.5 % (34.0-46.0); HGB 11.7 gm/dL (11.4-16.0); Lymphocytes # (A) 0.5 k/uL (1.0-4.8); Lymphocytes % (A) 18 %; MCH 30.3 pg (25.0-35.0); MCHC 32.9 g/dL (31.0-37.0); MCV 92.4 fL (80.0-100.0); Mean Platelet Volume 7.6; Monocytes # (A) 0.1 k/uL (0-1.0); Monocytes % (A) 5 %; Neutrophils % (A) 74 %; Platelet Count 120 k/uL (150-450); RBC 3.84 m/uL (3.80-5.40); RDW 13.7 % (11.5-15.5); WBC 2.7 k/uL (3.8-10.6)
[2019-08-31 06:50] LABS: African American GFR (CKD) >90 (>60 ml/min/1.73 sqM); Anion Gap 4 mmol/L; Blood Urea Nitrogen 2 mg/dL (7-17); Calcium 8.3 mg/dL (8.4-10.2); Carbon Dioxide 24 mmol/L (22-30); Chloride 109 mmol/L (98-107); Glucose 124 mg/dL (74-99); Magnesium 1.6 mg/dL (1.6-2.3); Non-African American GFR(CKD) >90 (>60 ml/min/1.73 sqM); Potassium 3.6 mmol/L (3.5-5.1); Sodium 137 mmol/L (137-145)
[2019-08-31 09:43] LABS: Protein, Total 4.8 g/dL (6.2-8.2)
[2019-08-31 10:01] LABS: Free Kappa Lt Chain Qnt, Serum 0.95 mg/dL (0.33-1.94)
--- NOTE | 2019-08-31 10:10 | FL ---
Barium swallow HISTORY: Dysphagia 56 seconds fluoroscopy time, 7 intraoperative images document the procedure Exam is limited by patient's nausea. No obstruction to flow is identified. No extrinsic or intrinsic esophageal lesion is evident. Swallowing mechanism is normal. No gastroesophageal reflux was identifi ed. No evident aspiration. IMPRESSION: Unremarkable limited barium swallow.
[2019-08-31] MEDS: PANTOPRAZOLE 40 MG TABLET PO SCH ×2 (10:59→20:14)
[2019-08-31] MEDS: HEPARIN SODIUM,PORCINE 5,000 UNIT/ML 1 ML VIAL SQ SCH ×2 (10:59→20:16)
[2019-08-31] MEDS: metroNIDAZOLE 500 MG TAB PO SCH ×3 (10:59→23:42)
[2019-08-31] MEDS: MULTIVITAMINS, THERA 1 EACH TAB PO SCH (11:00)
[2019-08-31] MEDS: FOLIC ACID 1 MG TAB PO SCH (11:01)
[2019-08-31] MEDS: ACETAMINOPHEN TAB 325 MG TAB PO PRN ×2 (11:07→20:14)
[2019-08-31] MEDS ORDERED: PEG 3350-NA SULF,BICARB,CL/KCL 4,000 ML BOTTLE PO ONE (14:13)
[2019-08-31 14:23] LABS: Albumin 3.17 g/dL (3.80-4.90); Gamma Globulin 0.51 g/dL (0.70-1.50)
--- NOTE | 2019-08-31 14:53 | P.PN ---
Subjective Progress Note Date: 08/31/19 This is a 59-year-old female admitted with acute nausea vomiting, swallowing difficulties 3 weeks since prior colitis attack. CT reported negative for evidence of colitis. Evaluated by GI, oncology, pulmonary with recommendations noted and appreciated underwent barium swallow today, unremarkable. Evaluated by GI with EGD and colonoscopy scheduled for tomorrow. Stool culture pending. Hemoglobin 0.7, platelets 120, WBC 2.7. Denies chest pain, palpitations or increased shortness of breath. Maintaining O2 sats in the high 90s on room air. Objective - Vital Signs Vital signs: Vital Signs Temp 99.5 F 08/31/19 13:00 Pulse 77 08/31/19 13:00 Resp 16 08/31/19 13:00 BP 122/75 08/31/19 13:00 Pulse Ox 98 08/31/19 13:00 Intake & Output 08/30/19 08/31/19 08/31/19 18:59 06:59 18:59 Intake Total 460 2100 0 Output Total 8 600 Balance 460 2092 -600 Weight 48.988 kg Intake: Intake, IV Titration 100 900 Amount Dextrose 5%-0.45% NaCl 1, 900 000 ml @ 75 mls/hr IV . [id number] [facility] Rx#:[id number] metroNIDAZOLE-NS PMX 500 100 mg In Saline 1 100ml.bag @ 100 mls/hr IVPB Q8HR [facility] Rx#:[id number] Oral 360 1200 0 Output: Urine 600 Emesis 8 Other: Voiding Method Toilet Toilet # Voids 1 1 # Bowel Movements 1 - Exam PHYSICAL EXAM: VITAL SIGNS: As above. GENERAL: Sitting up in bed, no acute distress HEENT: Conjunctivae normal. eyes normal. NECK: No JVD. No thyroid enlargement. No LNs CARDIOVASCULAR: S1, S2 regular.. No murmur RESPIRATION: Breath sounds diminished in the bases. Scattered rhonchi and fine bibasilar crackles ABDOMEN: Soft, nontender . Nondistended, No guarding. no masses palpable. Positive Bowel sounds heard. LEGS: No edema. no swelling PSYCHIATRY: Alert and oriented X3, mood and affect normal. NERVOUS SYSTEM: Cranial N 2-12 grossly normal. Moves all 4 limbs. No focal deficits. Strength and sensation grossly intact.. Skin: no lesions, no rash - Labs CBC & Chem 7: 08/31/19 05:50 08/31/19 05:50 Labs: Abnormal Lab Results - Last 24 Hours (Table) 08/29/19 08/31/19 08/31/19 Range/Units 17:26 05:50 05:50 WBC 2.7 L (3.8-10.6) k/uL Plt Count 120 L (150-450) k/uL Lymphocytes # 0.5 L (1.0-4.8) k/uL Chloride 109 H (98-107) mmol/L BUN 2 L (7-17) mg/dL Glucose 124 H (74-99) mg/dL Calcium 8.3 L (8.4-10.2) mg/dL Total Protein (PEP) 4.8 L (6.2-8.2) g/dL Albumin (PEP) 3.17 L (3.80-4.90) g/dL [id number] 0.47 L (0.60-1.00) g/dL Beta Globulins 0.41 L (0.60-1.30) g/dL Gamma Globulins 0.51 L (0.70-1.50) g/dL Free Lambda LC, Quant 0.52 L (0.57-2.63) mg/dL Microbiology - Last 24 Hours (Table) 08/30/19 07:40 Stool Culture - Preliminary Stool Assessment and Plan Assessment: Shortness of breath with cough, etiology unclear Intermittent diarrhea, Possible nonspecific infectious colitis Dysphagia for evaluation, barium swallow pending Bycytopenia Moderate protein calorie malnutrition secondary to poor oral intake chronic atrial fibrillation History of AV node reentry tachycardia ,cardiac ablation, cardiac catheterization Hyperlipidemia Hypercholesterolemia Hypokalemia Plan: Continue on current medication regime, monitoring and symptomatically treatment.follow closely with multiple consults, EGD and colonoscopy tomorrow. The impression and plan of care has been dictated as directed. : I performed a history and examination of this patient, discussed the same with the dictator. I agree with the dictator's note ,documented as a scribe. Any additional findings or plans will be noted.
[2019-08-31 15:49] LABS: % Iron Saturation 17.23 (12.00-45.00)
[2019-08-31 15:59] LABS: Ferritin 336.8 ng/mL (10.0-291.0)
--- NOTE | 2019-08-31 16:04 | P.CONS ---
History of Present Illness - Reason for Consult Consult date: 08/31/19 Bicytopenia Requesting physician: Narciso Peñaloza - Chief Complaint intractable nausea and vomiting - History of Present Illness Mrs. Delgado is a very pleasant 59-year-old female who we've been asked to see in regards to bicytopenia. Patient states that her primary care had been following her in the past for this, and that it seemed to exacerbate during acute illness. Her white blood cells of the lowest they have been no that she recalls (baseline running about 3-1/2) and her platelets are lower than they have been. Patient states that her symptomatology started about 1 year ago, over the last 4 months it's been more progressive, she has had upset stomac h, nausea, vomiting, some difficulty in swallowing, denies painful swallowing, instances we are she will have epigastric discomfort that radiates across the chest wall, associated with some shortness of breath, she denies diagnosis of myocardial infarction, she has had bowel infection, lost some weight and muscle mass. Denies fevers, sweats, no ill contacts, hematemesis, cough, dysuria, hematuria, hematochezia, melena, swellling in the legs, no other new pain to report. denies a personal history of cancer or chemotherapy, she states that her primary care had mentioned bone marrow biopsy in the past, she is never had one. Review of Systems 14 point review of systems is negative except as stated in HPI Past Medical History Past Medical History: Hyperlipidemia Additional Past Medical History / Comment(s): Hyperlipidemia, AV janay reentrant tachycardia, post-ablation, History of Any Multi-Drug Resistant Organisms: None Reported Past Surgical History: Ablation, Heart Catheterization, Hysterectomy Additional Past Surgical History / Comment(s): heart cath june 2019 Past Psychological History: No Psychological Hx Reported Smoking Status: Never smoker Past Alcohol Use History: None Reported Past Drug Use History: None Reported Medications and Allergies Home Medications Medication Instructions Recorded Confirmed Type Acetaminophen [Tylenol] 500 mg PO DAILY PRN 08/27/19 08/27/19 History Atorvastatin Calcium [Lipitor] 20 mg PO HS 08/27/19 08/27/19 History Ibuprofen [Motrin Ib] 600 mg PO DAILY PRN 08/27/19 08/27/19 History metroNIDAZOLE [Flagyl] 500 mg PO TID 08/27/19 08/27/19 History Allergies Allergy/AdvReac Type Severity Reaction Status Date / Time Penicillins Allergy Rash/Hives Verified 08/27/19 22:33 Physical Exam Vitals: Vital Signs Temp Pulse Pulse Resp BP Pulse Ox 08/31/19 14:41 67 77 16 08/31/19 13:00 99.5 F 77 16 122/75 98 08/31/19 08:00 67 16 08/31/19 05:00 97.6 F 67 16 117/73 98 08/30/19 23:10 16 08/30/19 20:32 98.2 F 59 L 16 144/82 99 Intake and Output 08/31/19 08/31/19 08/31/19 06:59 14:59 22:59 Intake Total 720 160 Output Total 8 1200 Balance 712 -1040 Intake: Intake, IV Titration 600 Amount Dextrose 5%-0.45% NaCl 1, 600 000 ml @ 75 mls/hr IV . [id number] [facility] Rx#:[id number] Oral 120 160 Output: Urine 1200 Emesis 8 Other: Voiding Method Toilet Toilet # Voids 1 1 Weight 48.988 kg - Constitutional General appearance: cooperative, no acute distress, thin - EENT Eyes: anicteric sclerae, EOMI ENT: hearing grossly normal, normal oropharynx (tongue is coated, patient has not brushed her teeth yet) - Neck Neck: no lymphadenopathy - Respiratory Respiratory: bilateral: CTA - Cardiovascular Rhythm: regular Heart sounds: normal: S1, S2 Abnormal Heart Sounds: no systolic murmur, no diastolic murmur, no rub, no S3 Gallop, no S4 Gallop, no click, no other leg Peripheral Edema: bilateral: None - Gastrointestinal General gastrointestinal: no absent bowel sounds, no decreased bowel sounds, no distended, no hepatomegaly, no hyperactive bowel sounds, normal bowel sounds, no organomegaly, no rigid, no scaphoid, soft, no splenomegaly, tenderness, no umbilical hernia, no ventral hernia Localized gastrointestinal: tender: RLQ - Integumentary Integumentary: normal - Neurologic Neurologic: CNII-XII intact - Musculoskeletal Musculoskeletal: generalized weakness, strength equal bilaterally - Psychiatric Psychiatric: A&O x's 3, appropriate affect, intact judgment & insight Results CBC & Chem 7: 08/31/19 05:50 08/31/19 05:50 Labs: Abnormal Lab Results - Last 24 Hours (Table) 08/29/19 08/29/19 08/31/19 Range/Units 17:26 17:26 05:50 WBC 2.7 L (3.8-10.6) k/uL Plt Count 120 L (150-450) k/uL Lymphocytes # 0.5 L (1.0-4.8) k/uL Chloride (98-107) mmol/L BUN (7-17) mg/dL Glucose (74-99) mg/dL Calcium (8.4-10.2) mg/dL Iron 41 L (50-170) ug/dL Total Protein (PEP) 4.8 L (6.2-8.2) g/dL Albumin (PEP) 3.17 L (3.80-4.90) g/dL Hwufu-6-Eedmfjobk 0.47 L (0.60-1.00) g/dL Beta Globulins 0.41 L (0.60-1.30) g/dL Gamma Globulins 0.51 L (0.70-1.50) g/dL Free Lambda LC, Quant 0.52 L (0.57-2.63) mg/dL 08/31/19 Range/Units 05:50 WBC (3.8-10.6) k/uL Plt Count (150-450) k/uL Lymphocytes # (1.0-4.8) k/uL Chloride 109 H (98-107) mmol/L BUN 2 L (7-17) mg/dL Glucose 124 H (74-99) mg/dL Calcium 8.3 L (8.4-10.2) mg/dL Iron (50-170) ug/dL Total Protein (PEP) (6.2-8.2) g/dL Albumin (PEP) (3.80-4.90) g/dL Dlkgo-2-Hpuouajvw (0.60-1.00) g/dL Beta Globulins (0.60-1.30) g/dL Gamma Globulins (0.70-1.50) g/dL Free Lambda LC, Quant (0.57-2.63) mg/dL Microbiology - Last 24 Hours (Table) 08/30/19 07:40 Stool Culture - Preliminary Stool CT scan - abdomen: report reviewed CT scan - chest: report reviewed CT scan - pelvis: report reviewed Assessment and Plan (1) Bicytopenia Narrative/Plan: From information available in the chart, patient's leukopenia has progressed from 3 range to the 2 range, differential is low lymphocytes. Platelet count has went from normal to the 120,000 range. None of her counts require acute intervention at this time. Multiple labs have been ordered to workup patient's bicytopenia. Patient states that this has been going on for over a year. Will review the case in detail with Dr. Mendoza. Patient says that there was mention of a bone marrow biopsy previously. Patient may have to be considered for the same. CT of the chest abdomen and pelvis as well as CT of the brain is not showing any pathology to account for patient's symptoms. She is being seen by GI, Surgery and Pulmonary Current Visit: Yes Status: Acute Priority: High Code(s): D75.89 - OTHER SPECIFIED DISEASES OF BLOOD AND BLOOD-FORMING ORGANS SNOMED Code(s): 52938347
--- NOTE | 2019-08-31 19:25 | PN ---
PROGRESS NOTE DATE OF DICTATION: August 31, 2019 Patient is a 59-year-old pleasant white female admitted to hospital with fatigue, nausea, vomiting, diarrhea, dysphagia and shortness of breath on and off for the last 2 weeks duration. She was diagnosed with possible infectious colitis and was started on antibiotics and the diarrhea resolved. However, after the CT scan, she had profuse diarrhea. Now it is much better. She has been complaining of shortness of breath and a CT of the chest was ordered including abdomen and pelvis was unremarkable. She had mild leukopenia and thrombocytopenia for which Dr. Mendoza was consulted. Overall, she is feeling better today. Still has some dysphagia. She has some nausea. No emesis. Reports no abdominal pain. Diarrhea has resolved. PHYSICAL EXAMINATION: She appears comfortable. No apparent distress. Vital signs are stable. Blood pressure 112/82, pulse rate 66 and afebrile. HEENT examination unremarkable. Conjunctivae pink. Sclerae anicteric. Oral cavity no lesions. NECK: No JVD or lymph node enlargement. CHEST: Clear to auscultation. HEART: Regular rate and rhythm. ABDOMEN: Soft, bowel sounds are positive. No organomegaly. EXTREMITIES: No pedal edema. SKIN: No rashes. NEURO: No focal deficits. LABS: Done from today: WBC 2.7, hemoglobin is 11.7, platelets 20,000. Basic metabolic panel is within normal limits. IMPRESSION: 1. Abdominal discomfort with occasional nausea, vomiting and diarrhea on and off for the last 2 to 3 months' duration. Initial CAT scan showed thickening of the colon, possible infectious colitis on IV antibiotics. The symptoms are gradually improving. Stool studies for C difficile toxin is negative. The patient is scheduled for EGD/colonoscopy on an outpatient basis at the end of this week. 2. Shortness of breath. CT of the chest was negative. 3. Mild thrombocytopenia and mild leukopenia. Dr. Mendoza following the patient. Possibly reactive in nature. 4. Intermittent dysphagia to solids. She did have a barium swallow done which was unremarkable. RECOMMENDATIONS: I had a lengthy discussion with the patient regarding management of symptoms. She still has ongoing GI symptoms and I suggested that she can have an EGD and colonoscopy during this hospitalization rather than on outpatient basis so that a definitive diagnosis can be made. She is agreeable to it. We will schedule for EGD and colonoscopy tomorrow. Thank you for this consultation. MMODL / IJN: [id number] /
[2019-08-31] MEDS: ATORVASTATIN 20 MG TAB PO SCH (20:14)
[2019-09-01] MEDS: DEXTROSE 5%-0.45% NACL 1,000 ML IV SCH ×2 (03:20→18:23)
[2019-09-01 07:42] LABS: Basophils % (A) 0 %; Eosinophils % (A) 1 %; HCT 36.8 % (34.0-46.0); HGB 11.9 gm/dL (11.4-16.0); Lymphocytes # (A) 0.6 k/uL (1.0-4.8); Lymphocytes % (A) 21 %; MCH 29.6 pg (25.0-35.0); MCHC 32.3 g/dL (31.0-37.0); MCV 91.6 fL (80.0-100.0); Mean Platelet Volume 7.6; Monocytes # (A) 0.2 k/uL (0-1.0); Monocytes % (A) 9 %; Neutrophils # (A) 1.9 k/uL (1.3-7.7); Neutrophils % (A) 67 %; Platelet Count 139 k/uL (150-450); RBC 4.02 m/uL (3.80-5.40); RDW 13.8 % (11.5-15.5); WBC 2.8 k/uL (3.8-10.6)
[2019-09-01 07:53] LABS: African American GFR (CKD) >90 (>60 ml/min/1.73 sqM); Anion Gap 4 mmol/L; Blood Urea Nitrogen <2 mg/dL (7-17); Calcium 8.7 mg/dL (8.4-10.2); Carbon Dioxide 26 mmol/L (22-30); Chloride 108 mmol/L (98-107); Glucose 105 mg/dL (74-99); Non-African American GFR(CKD) >90 (>60 ml/min/1.73 sqM); Potassium 3.5 mmol/L (3.5-5.1); Sodium 138 mmol/L (137-145)
--- NOTE | 2019-09-01 08:58 | P.PN ---
Subjective Progress Note Date: 09/01/19 This is a 59-year-old female admitted with acute nausea vomiting, swallowing difficulties 3 weeks since prior colitis attack. CT reported negative for evidence of colitis. Evaluated by GI, oncology, pulmonary with recommendations noted and appreciated underwent barium swallow today, unremarkable. Evaluated by GI with EGD and colonoscopy scheduled for tomorrow. Stool culture pending. Hemoglobin 0.7, platelets 120, WBC 2.7. Denies chest pain, palpitations or increased shortness of breath. Maintaining O2 sats in the high 90s on room air. 09/01/2019 NPO, EGD and colonoscopy scheduled for today. WBC 2.8, Hemoglobin 11.9, platelets 139. Denies spontaneous bleeding, no hematuria and no hematoc hezia, no melena. Afebrile.VSS, maintaining O2 sats in the 90s to 100 on room air. Occasional nausea. Denies chest pain, palpitations or shortness of breath. Objective - Vital Signs Vital signs: Vital Signs Temp 98.2 F 09/01/19 05:00 Pulse 68 09/01/19 05:00 Resp 16 09/01/19 05:00 BP 120/67 09/01/19 05:00 Pulse Ox 97 09/01/19 05:00 Intake & Output 08/31/19 09/01/19 09/01/19 18:59 06:59 18:59 Intake Total 160 1020 Output Total 1200 100 Balance -1040 920 Weight 48.988 kg Intake: Intake, IV Titration 300 Amount Dextrose 5%-0.45% NaCl 1, 300 000 ml @ 75 mls/hr IV . [id number] [facility] Rx#:[id number] Oral 160 720 Output: Urine 1200 Oral Regurgitation 100 Other: Voiding Method Toilet Toilet # Voids 1 4 # Bowel Movements 5 1 - Exam PHYSICAL EXAM: VITAL SIGNS: As above. GENERAL: Sitting up in bed, no acute distress HEENT: Conjunctivae normal. eyes normal. Oral mucosa dry. NECK: No JVD. No thyroid enlargement. No LNs CARDIOVASCULAR: S1, S2 regular.. No murmur RESPIRATION: Breath sounds diminished in the bases. Occasional fine bibasilar crackles ABDOMEN: Soft, nontender . Nondistended, No guarding. no masses palpable. Positive Bowel sounds heard. LEGS: No edema. no swelling PSYCHIATRY: Alert and oriented X3, mood and affect normal. NERVOUS SYSTEM: Cranial N 2-12 grossly normal. No focal deficits. Strength and sensation grossly intact.. Skin: no rash - Labs CBC & Chem 7: 09/01/19 06:56 09/01/19 06:56 Labs: Abnormal Lab Results - Last 24 Hours (Table) 08/29/19 08/29/19 09/01/19 Range/Units 17:26 17:26 06:56 WBC 2.8 L (3.8-10.6) k/uL Plt Count 139 L (150-450) k/uL Lymphocytes # 0.6 L (1.0-4.8) k/uL Chloride (98-107) mmol/L BUN (7-17) mg/dL Glucose (74-99) mg/dL Iron 41 L (50-170) ug/dL Ferritin 336.8 H (10.0-291.0) ng/mL Total Protein (PEP) 4.8 L (6.2-8.2) g/dL Albumin (PEP) 3.17 L (3.80-4.90) g/dL Fhdes-2-Ofjjnozqo 0.47 L (0.60-1.00) g/dL Beta Globulins 0.41 L (0.60-1.30) g/dL Gamma Globulins 0.51 L (0.70-1.50) g/dL Vitamin B12 1680.0 H (200.0-944.0) pg/mL Free Lambda LC, Quant 0.52 L (0.57-2.63) mg/dL 09/01/19 Range/Units 06:56 WBC (3.8-10.6) k/uL Plt Count (150-450) k/uL Lymphocytes # (1.0-4.8) k/uL Chloride 108 H (98-107) mmol/L BUN <2 L (7-17) mg/dL Glucose 105 H (74-99) mg/dL Iron (50-170) ug/dL Ferritin (10.0-291.0) ng/mL Total Protein (PEP) (6.2-8.2) g/dL Albumin (PEP) (3.80-4.90) g/dL Dgfkf-3-Pqehcavut (0.60-1.00) g/dL Beta Globulins (0.60-1.30) g/dL Gamma Globulins (0.70-1.50) g/dL Vitamin B12 (200.0-944.0) pg/mL Free Lambda LC, Quant (0.57-2.63) mg/dL Assessment and Plan Assessment: Shortness of breath with cough, etiology unclear Intermittent diarrhea, Possible nonspecific infectious colitis Dysphagia for evaluation, barium swallow pending Bycytopenia Moderate protein calorie malnutrition secondary to poor oral intake chronic atrial fibrillation History of AV node reentry tachycardia ,cardiac ablation, cardiac catheterization Hyperlipidemia Hypercholesterolemia Hypokalemia Plan: Continue on current medication regime, monitoring and symptomatically treatment.follow closely with multiple consults, EGD and colonoscopy pending. Oncology discussing potential bone marrow biopsy. The impression and plan of care has been dictated as directed. : I performed a history and examination of this patient, discussed the same with the dictator. I agree with the dictator's note ,documented as a scribe. Any additional findings or plans will be noted.
[2019-09-01] MEDS: metroNIDAZOLE 500 MG TAB PO SCH ×2 (09:23→18:23)
[2019-09-01] MEDS: HEPARIN SODIUM,PORCINE 5,000 UNIT/ML 1 ML VIAL SQ SCH ×2 (09:23→21:41)
[2019-09-01] MEDS: PANTOPRAZOLE 40 MG TABLET PO SCH ×2 (09:24→21:41)
[2019-09-01] MEDS: MULTIVITAMINS, THERA 1 EACH TAB PO SCH (13:00)
[2019-09-01] MEDS: FOLIC ACID 1 MG TAB PO SCH (13:00)
[2019-09-01] MEDS ORDERED: PROPOFOL 10 MG/ML 20 ML VIAL IV ONE (13:38)
[2019-09-01] MEDS ORDERED: IV FLUID CONTINUATION 1,000 ML IV ONE (13:39)
--- NOTE | 2019-09-01 14:10 | P.PCN ---
Date of Procedure: 09/01/19 Procedure(s) Performed: Date of Procedure: 09/01/19 (Brief history:) Procedure(s) Performed: Brief history: Patient is a pleasant 51-year-old white female, admitted hospital with abdominal discomfort, nausea vomiting, dysphagia diarrhea on and off for the last few weeks duration. She was treated empirically with antibiotics for possible infectious colitis with no help. She is hence scheduled for an elective upper endoscopy as well as colonoscopy Procedure performed: Esophagogastroduodenoscopy with biopsy Colonoscopy with random biopsies Preoperative diagnosis: Dysphagia/GERD Chronic diarrhea of 2 weeks duration Anesthesia: MAC Procedure: After informed consent was obtained from the patient was brought into the endoscopy unit and IV sedation was administered by anesthesia under continuous monitoring. Initially upper endoscopy was done. The Olympus GF 160 video endoscope was inserted inserted into the mouth and esophagus intubated without any difficulty and was gradually advanced into the stomach and duodenum and carefully examined. The bulb and second part of the duodenum appeared normal. Biopsies were done from the duodenum to rule out celiac disease The scope was then withdrawn into the stomach adequately insufflated with air and upon careful examination the antrum had mild gastritis and biopsies were done from this area. The body, cardia and fundus appeared normal. The scope was then withdrawn into the esophagus. The GE junction was located at 40 cm to the incisors. It appeared regular with no erythema erosions or ulcerations. Rest of the esophagus appeared normal. Biopsies were done from the distal esophagus. Patient tolerated the procedure well. At this time the patient continued to remain sedation. Initial digital rectal examination was normal. Olympus CF 160 video colonoscope was then inserted into the rectum and gradually advanced to the cecum without any difficulty. Careful examination was performed as the scope was gradually being withdrawn. Attempts at intubating the terminal ileum wasn't successful. The prep was fair.. The cecum, ascending colon, transverse colon, descending colon, sigmoid colon and rectum appeared normal. Random biopsies were done from ascending and descending colon to rule out microscopic/collagenous Retroflexion was performed in the rectum and no lesions were noted. Patient tolerated the procedure well. Impression: 1. Upper endoscopy revealed mild antral gastritis but no evidence of esophagitis or esophageal stricture 2. Colonoscopy was within normal limits with no evidence of colitis or colorectal Recommendations: Findings of this examination were discussed with the patient as well as of family. She was advised to follow with the biopsy results. In the meantime she will continue on Protonix 40 mg daily and diet will be advanced as tolerated Additional CC's: Genet Preciado
--- NOTE | 2019-09-01 17:18 | P.PN ---
Subjective Progress Note Date: 09/01/19 Principal diagnosis: bicytopenia in follow-up today patient as pending EGD and colonoscopy. She was unable to tolerate most of the prep, she is still having intermittent nausea and vomiting, poor appetite. Objective - Vital Signs Vital signs: Vital Signs Temp 97.4 F L 09/01/19 11:20 Pulse 76 09/01/19 11:20 Resp 16 09/01/19 11:20 BP 107/39 09/01/19 11:20 Pulse Ox 96 09/01/19 11:20 Intake & Output 08/31/19 09/01/19 09/01/19 18:59 06:59 18:59 Intake Total 160 1020 750 Output Total 1200 100 Balance -1040 920 750 Weight 48.988 kg Intake: IV 150 Intake, IV Titration 300 600 Amount Dextrose 5%-0.45% NaCl 1, 300 600 000 ml @ 75 mls/hr IV . [id number] [facility] Rx#:[id number] Oral 160 720 Output: Urine 1200 Oral Regurgitation 100 Other: Voiding Method Toilet Toilet Toilet # Voids 1 4 # Bowel Movements 5 1 - Constitutional General appearance: Present: cooperative, no acute distress, thin - EENT Eyes: Present: anicteric sclerae, EOMI ENT: Present: hearing grossly normal - Respiratory Details: respirations even and unlabored - Neurologic Neurologic: Present: CNII-XII intact - Musculoskeletal Musculoskeletal: Present: strength equal bilaterally - Psychiatric Psychiatric: Present: A&O x's 3, appropriate affect, intact judgment & insight - Labs CBC & Chem 7: 09/01/19 06:56 09/01/19 06:56 Labs: Abnormal Lab Results - Last 24 Hours (Table) 09/01/19 09/01/19 Range/Units 06:56 06:56 WBC 2.8 L (3.8-10.6) k/uL Plt Count 139 L (150-450) k/uL Lymphocytes # 0.6 L (1.0-4.8) k/uL Chloride 108 H (98-107) mmol/L BUN <2 L (7-17) mg/dL Glucose 105 H (74-99) mg/dL Assessment and Plan (1) Bicytopenia Narrative/Plan: From information available in the chart, patient's leukopenia has progressed from 3 range to the 2 range, differential is low lymphocytes. Platelet count has went from normal to the 120,000 range. None of her counts require acute intervention. Labs resulted thus far, no evidence for a paraproteinemia. Pending EGD and colonoscopy results. Bone marrow biopsy outpatient highly likely CT of the chest abdomen and pelvis as well as CT of the brain is not showing any pathology to account for patient's symptoms. She is being seen by GI, Surgery and Pulmonary Current Visit: Yes Status: Acute Priority: High Code(s): D75.89 - OTHER SPECIFIED DISEASES OF BLOOD AND BLOOD-FORMING ORGANS SNOMED Code(s): 46701462
[2019-09-01 21:22] VITALS: RESP 12
[2019-09-01] MEDS: ATORVASTATIN 20 MG TAB PO SCH (21:41)
[2019-09-02] MEDS: metroNIDAZOLE 500 MG TAB PO SCH ×2 (00:01→07:59)
[2019-09-02] MEDS: ACETAMINOPHEN TAB 325 MG TAB PO PRN ×2 (02:23→08:00)
[2019-09-02 05:38] VITALS: BP 106/64; PULSE 73; TEMP 98
[2019-09-02] MEDS: MULTIVITAMINS, THERA 1 EACH TAB PO SCH (07:59)
[2019-09-02] MEDS: HEPARIN SODIUM,PORCINE 5,000 UNIT/ML 1 ML VIAL SQ SCH (07:59)
[2019-09-02] MEDS: PANTOPRAZOLE 40 MG TABLET PO SCH (07:59)
[2019-09-02] MEDS: FOLIC ACID 1 MG TAB PO SCH (07:59)
[2019-09-02] MEDS: DEXTROSE 5%-0.45% NACL 1,000 ML IV SCH (08:01)
[2019-09-02 09:28] LABS: HCT 37.7 % (34.0-46.0); HGB 12.1 gm/dL (11.4-16.0); MCH 29.8 pg (25.0-35.0); MCHC 32.2 g/dL (31.0-37.0); MCV 92.6 fL (80.0-100.0); Mean Platelet Volume 7.5; Platelet Count 150 k/uL (150-450); RBC 4.07 m/uL (3.80-5.40); RDW 14.2 % (11.5-15.5); WBC 4.5 k/uL (3.8-10.6)
--- NOTE | 2019-09-02 10:26 | P.DS ---
Providers Date of admission: 08/29/19 15:45 Expected date of discharge: 09/02/19 Attending physician: Ronni Velez MD Consults: 08/27/19 21:46 Consult Physician Routine Consulting Provider: Rm Hardy Consult Reason/Comments: nausea and vomiting Do you want consulting provider notified?: Yes, Notify in am 08/27/19 22:31 Consult Physician Routine Consulting Provider: [facility] Consult Reason/Comments: generalized weakness Do you want consulting provider notified?: Yes, Notify in am 08/28/19 12:16 Consult Physician Routine Consulting Provider: Marisela Valles Consult Reason/Comments: nausea/vomiting/diarrhea Do you want consulting provider notified?: Already Contacted 08/29/19 20:01 Consult Physician Routine Consulting Provider: Niecy Matias Consult Reason/Comments: sob Do you want consulting provider notified?: Yes 08/30/19 12:38 Consult Physician Routine Consulting Provider: Po Mendoza Consult Reason/Comments: bicytopenia Do you want consulting provider notified?: Yes Primary care physician: Genet Preciado [facility] Hospital Course: Final Diagnoses: Shortness of breath with cough, etiology unclear, possibly gastroesophageal reflux disease, possibly ALLERGy related Mild antral gastritis per EGD. Colonoscopy within normal limits Dysphagia,barium swallow on remarkable Bycytopenia Moderate protein calorie malnutrition secondary to poor oral intake chronic atrial fibrillation History of AV node reentry tachycardia ,cardiac ablation, cardiac catheterization Hyperlipidemia Hypercholesterolemia Hypokalemia Hypomagnesemia Hospital course:This is a 59-year-old female admitted with acute nausea vomiting, swallowing difficulties 3 weeks since prior colitis attack. CT reported negative for evidence of colitis. Evaluated by GI, oncology, pulmonary with recommendations noted and appreciated underwent barium swallow today, unremarkable. Evaluated by GI with EGD and colonoscopy scheduled for tomorrow. Stool culture pending. Hemoglobin 0.7, platelets 120, WBC 2.7. Denies chest pain, palpitations or increased shortness of breath. Maintaining O2 sats in the high 90s on room air. 09/01/2019 NPO, EGD and colonoscopy scheduled for today. WBC 2.8, Hemoglobin 11.9, platelets 139. Denies spontaneous bleeding, no hematuria and no hematochezia, no melena. Afebrile.VSS, maintaining O2 sats in the 90s to 100 on room air. Occasional nausea. Denies chest pain, palpitations or shortness of breath. EGD reported mild antral gastritis, colonoscopy within normal limits. Maintained on PPI. Completed Flagyl treatment. WBC up to 4.5, platelets 150. BMP and magnesium pending. Denies nausea, vomiting or abdominal pain .Significant clinical improvement. Cleared by GI for discharge. Patient will be discharged home in a stable condition with guarded prognosis pending electrolytes, final DC recommendations and clearance from oncology. The impression and plan of care has been dictated as directed. : I performed a history and examination of this patient, discussed the same with the dictator. I agree with the dictator's note ,documented as a scribe. Any additional findings or plans will be noted. Patient Condition at Discharge: Stable Plan - Discharge Summary New Discharge Prescriptions: New Pantoprazole [Protonix] 40 mg PO BID #60 tablet.dr Continue Acetaminophen [Tylenol] 500 mg PO DAILY PRN PRN Reason: Pain Atorvastatin Calcium [Lipitor] 20 mg PO HS Discontinued metroNIDAZOLE [Flagyl] 500 mg PO TID Discharge Medication List Acetaminophen [Tylenol] 500 mg PO DAILY PRN 08/27/19 [History] Atorvastatin Calcium [Lipitor] 20 mg PO HS 08/27/19 [History] Pantoprazole [Protonix] 40 mg PO BID #60 tablet. 09/02/19 [Rx] Follow up Appointment(s)/Referral(s): Giancarlo Buitrago MD [STAFF PHYSICIAN] - 2 Weeks Genet Preciado DO [Primary Care Provider] - 3 Days Ambulatory/Diagnostic Orders: Complete Blood Count w/diff [LAB.AMB] Time Frame: 3 Days, Location: None Selected
[2019-09-02 10:27] LABS: African American GFR (CKD) >90 (>60 ml/min/1.73 sqM); Anion Gap 8 mmol/L; Blood Urea Nitrogen 3 mg/dL (7-17); Carbon Dioxide 23 mmol/L (22-30); Chloride 106 mmol/L (98-107); Glucose 148 mg/dL (74-99); Non-African American GFR(CKD) >90 (>60 ml/min/1.73 sqM); Potassium 3.3 mmol/L (3.5-5.1); Sodium 137 mmol/L (137-145)
--- NOTE | 2019-09-02 15:31 | P.PN ---
Subjective Progress Note Date: 09/02/19 Principal diagnosis: bicytopenia In follow-up today patient states feeling she is tolerating a diet, no vomiting, her bowel movements starting to have a more normal consistency, denies bleeding or fevers Objective - Vital Signs Vital signs: Vital Signs Temp 98.0 F 09/02/19 04:28 Pulse 73 09/02/19 04:28 Resp 12 09/02/19 04:28 BP 106/64 09/02/19 04:28 Pulse Ox 98 09/02/19 04:28 Intake & Output 09/01/19 09/02/19 09/02/19 18:59 06:59 18:59 Intake Total 750 262.5 525 Balance 750 262.5 525 Intake: IV 150 Intake, IV Titration 600 262.5 525 Amount Dextrose 5%-0.45% NaCl 1, 600 262.5 525 000 ml @ 75 mls/hr IV . [id number] ARTEMIO Rx#:[id number] Other: Voiding Method Toilet Toilet # Voids 4 3 # Bowel Movements 1 - Constitutional General appearance: Present: cooperative, no acute distress, thin - EENT Eyes: Present: anicteric sclerae, EOMI ENT: Present: hearing grossly normal - Respiratory Respiratory: bilateral: CTA - Cardiovascular Heart sounds: normal: S1, S2 - Peripheral edema leg Peripheral Edema: bilateral: None - Gastrointestinal General gastrointestinal: Present: normal bowel sounds, soft, tenderness - Neurologic Neurologic: Present: CNII-XII intact - Musculoskeletal Musculoskeletal: Present: strength equal bilaterally - Psychiatric Psychiatric: Present: A&O x's 3, appropriate affect, intact judgment & insight - Labs CBC & Chem 7: 09/02/19 08:53 09/02/19 08:53 Labs: Abnormal Lab Results - Last 24 Hours (Table) 09/02/19 09/02/19 Range/Units 08:53 08:53 Potassium 3.3 L (3.5-5.1) mmol/L BUN 3 L (7-17) mg/dL Glucose 148 H (74-99) mg/dL Magnesium 1.4 L (1.6-2.3) mg/dL Microbiology - Last 24 Hours (Table) 08/30/19 07:40 Stool Culture - Preliminary Stool Assessment and Plan (1) Bicytopenia Narrative/Plan: Leukopenia progressed this visit from 3 range to the 2 range, differential low lymphocytes. Platelet count was normal, decreased to the 120,000 range. None of her counts required acute intervention. Work up was negative for paraproteinemia. Her WBC and platelet were normal on today's lab draw. Her counts improved with improvement in her condition. Recommendation to the patient is to follow up with her PCP and monitor her CBC. If she has recurrence or worsening in her labs, refer back to Hematology for further work up, possible bone marrow. She verbalized understanding. CT CAP and CT of the brain did not reveal any pathology to account for patient's symptoms. Pending EGD and colonoscopy results. Status: Acute Priority: High Code(s): D75.89 - OTHER SPECIFIED DISEASES OF BLOOD AND BLOOD-FORMING ORGANS SNOMED Code(s): 89946683
--- NOTE | 2019-09-03 03:45 | PN ---
PROGRESS NOTE DATE OF DICTATION: 09/02/2019 Patient is a 59-year-old pleasant white female admitted to the hospital with abdominal pain, nausea, vomiting, dysphagia, shortness of breath and diarrhea on and off for the last 2 weeks duration. She underwent an EGD, colonoscopy yesterday that showed mild gastritis but normal-appearing colon. Multiple biopsies were done. Results of which are pending. Overall she is feeling much better. She is on a regular diet, tolerating well. She still has some nausea and occasional shortness of breath. No heartburn. No further episodes of diarrhea. PHYSICAL EXAMINATION: On physical examination, appears comfortable, no apparent distress. Vital signs are stable. Blood pressure is 112/86, pulse rate 82 per minute and afebrile. HEENT EXAMINATION: Unremarkable. Conjunctivae pink. Sclerae anicteric. Oral cavity, no lesions. NECK: No JVD or lymph node enlargement. CHEST: Clear to auscultation. HEART: Regular rate and rhythm. ABDOMEN: Soft. Bowel sounds are positive. No organomegaly. EXTREMITIES: No pedal edema. SKIN: No rashes. NEUROLOGIC: Alert and oriented x3. No focal deficits. LABS: WBC 4.5, hemoglobin 12.1, platelets normal. Basic metabolic panel is within normal limits. Magnesium 1.4. Potassium 3.3. IMPRESSION: 1. Nausea, vomiting, diarrhea, resolved, possibly infectious colitis. She was treated with IV Flagyl for 5 days. Recent colonoscopy yesterday did not show any active colitis. Random biopsies were done to rule out microscopic colitis. 2. Shortness of breath. Seen by Dr. Matias. CT of the chest was negative. 3. Dysphagia. Recent EGD yesterday did not show any evidence of esophagitis or esophageal stricture. 4. Gastroesophageal reflux disease. RECOMMENDATION: 1. Continue Protonix 40 mg daily for 3 months. 2. Stop antibiotics. 3. Advance diet as tolerated. 4. She can be discharged home with an outpatient followup in a week. Thank you for this consultation. MMODL / IJN: [id number] /
[2019-09-03 09:39] LABS: Methylmalonic Acid 0.13 umol/L (<0.40)
== END 2019-09-02 14:40 | disposition home or self-care (01) | DRG 392 ==
LOC: EC 18:04 → 6PED 21:45 → 5NMEDONC 21:45 → OBSVTOIN 08-29 15:45
PROVIDERS: ADMIT Family Medicine; ATTEND Family Medicine
PROC: 0DBH8ZX Excision of Cecum, Via Natural or Artificial Opening Endoscopic, Diagnostic (ICD-10-PCS; principal; 2019-09-01 07:30)
PROC: 0DB78ZX Excision of Stomach, Pylorus, Via Natural or Artificial Opening Endoscopic, Diagnostic (ICD-10-PCS; principal; 2019-09-01 07:30)
PROC: 0DBM8ZX Excision of Descending Colon, Via Natural or Artificial Opening Endoscopic, Diagnostic (ICD-10-PCS; principal; 2019-09-01 07:30)
PROC: 0DB98ZX Excision of Duodenum, Via Natural or Artificial Opening Endoscopic, Diagnostic (ICD-10-PCS; principal; 2019-09-01 07:30)
PROC: 0DB58ZX Excision of Esophagus, Via Natural or Artificial Opening Endoscopic, Diagnostic (ICD-10-PCS; principal; 2019-09-01 07:30)
DX: A09 Infectious gastroenteritis and colitis, unspecified (principal); E44.0 Moderate protein-calorie malnutrition; E87.1 Hypo-osmolality and hyponatremia; I48.20 Chronic atrial fibrillation, unspecified; N13.30 Unspecified hydronephrosis; R64 Cachexia; K21.9 Gastro-esophageal reflux disease without esophagitis; D18.03 Hemangioma of intra-abdominal structures; D69.6 Thrombocytopenia, unspecified; D72.819 Decreased white blood cell count, unspecified; E78.00 Pure hypercholesterolemia, unspecified; E78.5 Hyperlipidemia, unspecified; E83.42 Hypomagnesemia; E86.0 Dehydration; E87.6 Hypokalemia; I10 Essential (primary) hypertension; K29.70 Gastritis, unspecified, without bleeding; R13.10 Dysphagia, unspecified; R62.7 Adult failure to thrive; Z79.899 Other long term (current) drug therapy; Z90.710 Acquired absence of both cervix and uterus; Z88.0 Allergy status to penicillin
CPT/HCPCS: 36415; 43239; 45380; 70450; 71045; 71250; 74176; 74220; 80048; 80053; 81003; 82533; 82607; 82728; 82747; 83540; 83550; 83605; 83735; 83883; 83921; 84100; 84132; 84134; 84165; 84484; 85025; 85027; 85610; 85652; 85730; 86038; 86140; 86301; 86304; 86334; 86431; 87045; 87046; 87177; 87209; 87324; 88305; 93005; 96360; 96361; 99285

== ENCOUNTER → 2019-09-11 | Outpatient (CLI) | payer BC ==
[2019-09-11 12:57] LABS: HCT 41.1 % (34.0-46.0); HGB 13.2 gm/dL (11.4-16.0); MCH 29.7 pg (25.0-35.0); MCV 92.8 fL (80.0-100.0); Platelet Count 173 k/uL (150-450); RBC 4.43 m/uL (3.80-5.40); WBC 3.1 k/uL (3.8-10.6)
[2019-09-11 18:29] LABS: African American GFR (CKD) 80.5 (60.0-200.0); Anion Gap 9.3 mmol/L (4.00-12.00); BUN/Creat Ratio 14.44 Ratio (12.00-20.00); Calcium 9.9 mg/dL (8.7-10.3); Carbon Dioxide 28.7 mmol/L (21.6-31.8); Non-African American GFR(CKD) 69.5 (60.0-200.0); Potassium 3.7 mmol/L (3.5-5.5)
== END | disposition home or self-care (01) ==
LOC: LABWHC1 12:30
PROVIDERS: ATTEND Nurse Practitioner
DX: K29.70 Gastritis, unspecified, without bleeding (principal); D61.818 Other pancytopenia
CPT/HCPCS: 36415; 80048; 85027

== ENCOUNTER → 2019-10-19 | Outpatient (CLI) | payer BC ==
[2019-10-19 22:14] LABS: Centromere Antibody <0.2 AI; Centromere Antibody Interp NEGATIVE (NEGATIVE); Scleroderma SC-70 Ab <0.2 AI
== END | disposition home or self-care (01) ==
LOC: LABWHC1 11:31
PROVIDERS: ATTEND Internal Medicine Critical Care Medicine
DX: R05 Cough (principal)
CPT/HCPCS: 36415; 86038; 86235

== ENCOUNTER → 2019-10-30 | Outpatient (CLI) | payer BC | END | disposition home or self-care (01) | LOC: LABWHC1 10:45 | PROVIDERS: ATTEND Otolaryngology | DX: J30.89 Other allergic rhinitis (principal) | CPT/HCPCS: 36415 ==

== ENCOUNTER → 2020-01-27 | Outpatient (CLI) | payer BC ==
--- NOTE | 2020-01-28 12:31 | MM ---
Reason for exam: screening (asymptomatic). Last mammogram was performed 9 years and 6 months ago. History: Patient is postmenopausal. Physical Findings: A clinical breast exam by your physician is recommended on an annual basis and results should be correlated with mammographic findings. MG Screening Mammo w CAD Bilateral CC and MLO view(s) were taken. Prior study comparison: July 20, 2010, bilateral digital screening mammo w/CAD. May 27, 2008, bilateral digital screening mammogram. The breast tissue is extremely dense which could obscure a lesion on mammography. No significant changes when compared with prior studies. ASSESSMENT: Negative, BI-RAD 1 RECOMMENDATION: Routine screening mammogram of both breasts in 1 year.
== END | disposition home or self-care (01) ==
LOC: RADMAMWWP 10:42
PROVIDERS: ATTEND Family Medicine
DX: Z12.31 Encounter for screening mammogram for malignant neoplasm of breast (principal)
CPT/HCPCS: 77067

== ENCOUNTER → 2020-02-24 | Outpatient (CLI) | payer BC ==
[2020-02-25 08:55] VITALS: BMI 16.5
== END | disposition home or self-care (01) ==
LOC: DBWHC3 12:44
PROVIDERS: ATTEND Family Medicine
DX: K63.4 Enteroptosis (principal); E46 Unspecified protein-calorie malnutrition
CPT/HCPCS: 97802

== ENCOUNTER → 2020-10-28 | Outpatient (CLI) | payer BC ==
[2020-10-28 19:58] LABS: Peanut IgE <0.10 kU/L; Walnut IgE (Food) <0.10 kU/L
== END | disposition home or self-care (01) ==
LOC: LABWHC1 11:35
PROVIDERS: ATTEND Otolaryngology
DX: L50.0 Allergic urticaria (principal)
CPT/HCPCS: 36415; 86003

== ENCOUNTER → 2023-01-22 | Outpatient (CLI) | payer OTHER ==
--- NOTE | 2023-01-23 08:52 | MM ---
Reason for Exam: Screening (asymptomatic). Last mammogram was performed 2 year(s) and 11 month(s) ago. Patient History: Menarche at age 10. First Full-Term at age 27. Hysterectomy at age 47. Postmenopausal. Risk Values: Addie 5 year model risk: 1.9%. NCI Lifetime model risk: 8.1%. Prior Study Comparison: 05/27/2008 Bilateral Screening Mammogram, [facility]. 07/20/2010 Bilateral Screening Mammogram, [facility]. 01/27/2020 Bilateral Screening Mammogram, [facility]. Tissue Density: The breast tissue is extremely dense which could obscure a lesion on mammography. Findings: Analyzed By CAD. Right breast: New calcifications right breast posterior depth 4.8 cm from nipple on MLO view slightly medial on CC view. Left breast: There is no suspicious group of microcalcifications or new suspicious mass. Overall Assessment: Incomplete: need additional imaging evaluation, BI-RAD 0 Management: Diagnostic Mammogram of the right breast. [facility] will attempt to contact patient to return for supplemental views and ultrasound if indicated. Patient should continue monthly self-breast exams. A clinical breast exam by your physician is recommended on an annual basis. This exam should not preclude additional follow-up of suspicious palpable abnormalities. Note on Addie scores and lifetime risk: 1. A Addie score greater than 3% is considered moderate risk. If this is the case, consider specialist referral to assess eligibility for a risk reducing agent. 2. If overall lifetime risk for the development of breast cancer is 20% or higher, the patient may qualify for future screening with alternating mammogram and breast MRI. Electronically signed and approved by: Isiah Kuhn DO
== END | disposition home or self-care (01) ==
LOC: RADMAMWWP 11:23
PROVIDERS: ATTEND Family Medicine
DX: Z12.31 Encounter for screening mammogram for malignant neoplasm of breast (principal); Z78.0 Asymptomatic menopausal state
CPT/HCPCS: 77063; 77067

== ENCOUNTER → 2023-02-01 | Outpatient (CLI) | payer OTHER ==
--- NOTE | 2023-02-01 14:04 | MM ---
Reason for Exam: Additional evaluation requested from abnormal screening. Last screening mammogram was performed less than 1 month ago. Patient History: Menarche at age 10. First Full-Term at age 27. Hysterectomy at age 47. Postmenopausal. Risk Values: Addie 5 year model risk: 1.9%. NCI Lifetime model risk: 8.1%. Prior Study Comparison: 07/20/2010 Bilateral Screening Mammogram, [facility]. 01/27/2020 Bilateral Screening Mammogram, [facility]. 01/22/2023 Bilateral MG 3D screening mammo w/cad, [facility]. Tissue Density: Right: The breast tissue is extremely dense which could obscure a lesion on mammography. Findings: Analyzed By CAD. No suspicious mass. Grouped calcifications within the right breast posteriorly appear round in morphology. Overall Assessment: Benign, BI-RAD 2 Management: Screening Mammogram of both breasts in 1 year. A clinical breast exam by your physician is recommended on an annual basis and results should be correlated with mammographic findings. This exam should not preclude additional follow-up of suspicious palpable abnormalities. Results were given to the patient verbally at the time of exam. Note on Adide scores and lifetime risk: 1. A Addie score greater than 3% is considered moderate risk. If this is the case, consider specialist referral to assess eligibility for a risk reducing agent. If overall lifetime risk for the development of breast cancer is 20% or higher, the patient may qualify for future screening with alternating mammogram and breast MRI. Electronically signed and approved by: Mayito Almodovar D.O.
== END | disposition home or self-care (01) ==
LOC: RADMAMWWP 13:27
PROVIDERS: ATTEND Family Medicine
DX: R92.341 Mammographic extreme density, right breast (principal); Z78.0 Asymptomatic menopausal state
CPT/HCPCS: 77061; 77065

== ENCOUNTER 2023-02-16 08:46 | Emergency (ER) | payer OTHER ==
[2023-02-16 09:03] VITALS: TEMP 98.7
[2023-02-16 12:05] LABS: Basophils % (A) 0 %; Eosinophils % (A) 1 %; HCT 40.3 % (34.0-46.0); HGB 13.3 gm/dL (11.4-16.0); Lymphocytes # (A) 0.7 k/uL (1.0-4.8); Lymphocytes % (A) 19 %; MCH 30.5 pg (25.0-35.0); MCV 92.5 fL (80.0-100.0); Mean Platelet Volume 7.8; Monocytes # (A) 0.2 k/uL (0-1.0); Monocytes % (A) 6 %; Neutrophils # (A) 2.6 k/uL (1.3-7.7); Neutrophils % (A) 72 %; Platelet Count 149 k/uL (150-450); RBC 4.35 m/uL (3.80-5.40); WBC 3.6 k/uL (3.8-10.6)
[2023-02-16] MEDS ORDERED: KETOROLAC 15 MG/ML 1 ML VIAL IVP STA (12:05)
[2023-02-16] MEDS ORDERED: ONDANSETRON 4 MG/2 ML VIAL IVP STA (12:05)
--- NOTE | 2023-02-16 12:07 | ED ---
General Adult HPI - General Chief complaint: Recheck/Abnormal Lab/Rx Stated complaint: abn labs Time Seen by Provider: 02/16/23 11:26 Source: patient, RN notes reviewed Mode of arrival: ambulatory Limitations: no limitations - History of Present Illness Initial comments: 62-year-old female with a past medical history of hyperlipidemia tachycardia presents to the emergency room for a chief complaint of not feeling well and abdominal pain. Patient states she has had vague lower and upper abdominal pain for about a month now. It does radiate to her back. She was seen at her doctor's office last week and had blood work drawn. She was called late last night and told that her pancreas enzymes were high. Patient was told to present to the emergency room.Patient has no other complaints at this time including shortness of breath, chest pain, nausea. headache, or visual changes. - Related Data Home Medications Medication Instructions Recorded Confirmed Atorvastatin Calcium [Lipitor] 20 mg PO HS 08/27/19 05/30/22 Multivitamins, Thera [Multivitamin 1 tab PO DAILY 05/30/22 05/30/22 (formulary)] Allergies Allergy/AdvReac Type Severity Reaction Status Date / Time barley Allergy Anaphylaxis Verified 02/16/23 08:52 milk Allergy Unknown Verified 02/16/23 08:52 Milk Containing Products Allergy Unknown Verified 02/16/23 08:52 (Dairy) [Milk Containing Products] peanut Allergy Swelling Verified 02/16/23 08:52 Penicillins Allergy Rash/Hives Verified 02/16/23 08:52 soybean Allergy Swelling Verified 02/16/23 08:52 wheat Allergy Anaphylaxis Verified 02/16/23 08:52 gluten AdvReac Wheezing Verified 02/16/23 08:52 rye Allergy Anaphylaxis Uncoded 02/16/23 08:52 Review of Systems ROS Statement: Those systems with pertinent positive or pertinent negative responses have been documented in the HPI. ROS Other: All systems not noted in ROS Statement are negative. Past Medical History Past Medical History: Hyperlipidemia Additional Past Medical History / Comment(s): Hyperlipidemia, AV janay reentrant tachycardia, post-ablation, History of Any Multi-Drug Resistant Organisms: None Reported Past Surgical History: Ablation, Heart Catheterization, Hysterectomy Additional Past Surgical History / Comment(s): heart cath june 2019 Past Psychological History: No Psychological Hx Reported Smoking Status: Never smoker Past Alcohol Use History: None Reported Past Drug Use History: None Reported General Exam Limitations: no limitations General appearance: alert, in no apparent distress Head exam: Present: atraumatic Eye exam: Present: normal appearance, PERRL, EOMI. Absent: scleral icterus, conjunctival injection ENT exam: Present: normal exam, mucous membranes moist Neck exam: Present: normal inspection, full ROM. Absent: tenderness Respiratory exam: Present: normal lung sounds bilaterally. Absent: respiratory distress, wheezes Cardiovascular Exam: Present: regular rate, normal rhythm, normal heart sounds GI/Abdominal exam: Present: soft, tenderness (Mild generalized lower abdominal tenderness), normal bowel sounds. Absent: distended Neurological exam: Present: alert Course Vital Signs 02/16/23 08:47 Temperature 98.7 F Pulse Rate 69 Respiratory 20 Rate Blood Pressure 139/80 O2 Sat by Pulse 100 Oximetry Medical Decision Making - Medical Decision Making Was pt. sent in by a medical professional or institution (, PA, [employer], urgent care, hospital, or detention...) When possible be specific @ -yes, Dr Did you speak to anyone other than the patient for history (EMS, parent, family, police, friend...)? What history was obtained from this source @ -[No] Did you review nursing and triage notes (agree or disagree)? Why? @ -[I reviewed and agree with nursing and triage notes] Were old charts reviewed (outside hosp., previous admission, EMS record, old EKG, old radiological studies, urgent care reports/EKG's, detention records)? Report findings @ -[No old charts were reviewed] Differential Diagnosis (chest pain, altered mental status, abdominal pain women, abdominal pain men, vaginal bleeding, weakness, fever, dyspnea, syncope, headache, dizziness, GI bleed, back pain, seizure, CVA, palpatations, mental health)? Appendicitis, Cholecystitis, diverticulosis, ischemic bowel, pancreatitis, hepatitis, UTI, gastroenteritis, AAA, incarcerated hernia, bowel obstruction, constipation, inflammatory bowel, hepatitis, peptic ulcer disease, splenic infarction, perforated viscus, vulvitis, ovarian torsion, PID, kidney stone, rox centa abruption, this is not meant to be an all-inclusive list EKG interpreted by me (3pts min.). @ -none X-rays interpreted by me (1pt min.). @ -[None done] CT interpreted by me (1pt min.). @ -negative for acute process, appendicolith U/S interpreted by me (1pt. min.). @ -[None done] What testing was considered but not performed or refused? (CT, X-rays, U/S, labs)? Why? @ - none What meds were considered but not given or refused? Why? @ -[None] Did you discuss the management of the patient with other professionals (professionals i.e. DrTy, PA, [employer], lab, RT, psych nurse, social worker aide, stucco mason, teacher, community reinvestment act officer, comp field case manager)? Give summary @ -[No] Was smoking cessation discussed for >3mins.? @ -[No] Was critical care preformed (if so, how long)? @ -[No] Were there social determinants of health that impacted care today? How? (Homelessness, low income, unemployed, alcoholism, drug addiction, transportation, low edu. Level, literacy, decrease access to med. care, longterm, rehab)? @ -[No] Was there de-escalation of care discussed even if they declined (Discuss DNR or withdrawal of care, Hospice)? DNR status @ -[No] What co-morbidities impacted this encounter? (DM, HTN, Smoking, COPD, CAD, Cancer, CVA, ARF, Chemo, Hep., AIDS, mental health diagnosis, sleep apnea, morbid obesity)? @ -[None] Was patient admitted / discharged? Hospital course, mention meds given and route, prescriptions, significant lab abnormalities, going to OR and other pertinent info. @ -Vitals are stable. CBC CMP unremarkable. Lipase minimally elevated at 308. Urinalysis is negative. CT abdomen and pelvis shows appendicolith without evidence for dilated appendix or inflammatory changes. At this time patient is stable for discharge home but should follow up with PCP as she will likely require further testing possibly a colonoscopy and testing for the mildly elevated lipase through GI. She should return here for any worsening symptoms. Undiagnosed new problem with uncertain prognosis? @ -[No] Drug Therapy requiring intensive monitoring for toxicity (Heparin, Nitro, Insulin, Cardizem)? @ -[No] Were any procedures done? @ -[No] Diagnosis/symptom? @ -abdominal pain Acute, or Chronic, or Acute on Chronic? @ -acute on chronic Uncomplicated (without systemic symptoms) or Complicated (systemic symptoms)? @ -uncomplicated Side effects of treatment? @ -[No] Exacerbation, Progression, or Severe Exacerbation? @ -[No] Poses a threat to life or bodily function? How? (Chest pain, [place], [place], pneumonia, PE, COPD, DKA, ARF, appy, cholecystitis, CVA, Diverticulitis, Homicidal, Suicidal, threat to staff... and all critical care pts) @ -[No] - Lab Data Result diagrams: 02/16/23 11:50 02/16/23 11:49 Lab Results 02/16/23 02/16/23 02/16/23 Range/Units 11:49 11:49 11:50 WBC 3.6 L (3.8-10.6) k/uL RBC 4.35 (3.80-5.40) m/uL Hgb 13.3 (11.4-16.0) gm/dL Hct 40.3 (34.0-46.0) % MCV 92.5 (80.0-100.0) fL MCH 30.5 (25.0-35.0) pg MCHC 33.0 (31.0-37.0) g/dL RDW 13.0 (11.5-15.5) % Plt Count 149 L (150-450) k/uL MPV 7.8 Neutrophils % 72 % Lymphocytes % 19 % Monocytes % 6 % Eosinophils % 1 % Basophils % 0 % Neutrophils # 2.6 (1.3-7.7) k/uL Lymphocytes # 0.7 L (1.0-4.8) k/uL Monocytes # 0.2 (0-1.0) k/uL Eosinophils # 0.0 (0-0.7) k/uL Basophils # 0.0 (0-0.2) k/uL Sodium 138 (137-145) mmol/L Potassium 4.2 (3.5-5.1) mmol/L Chloride 103 (98-107) mmol/L Carbon Dioxide 29 (22-30) mmol/L Anion Gap 6 mmol/L BUN 17 (7-17) mg/dL Creatinine 0.98 (0.52-1.04) mg/dL Est GFR (CKD-EPI)AfAm 71 (>60 ml/min/1.73 sqM) Est GFR (CKD-EPI)NonAf 62 (>60 ml/min/1.73 sqM) Glucose 79 (74-99) mg/dL Calcium 9.9 (8.4-10.2) mg/dL Total Bilirubin 0.6 (0.2-1.3) mg/dL AST 27 (14-36) U/L ALT 21 (4-34) U/L Alkaline Phosphatase 71 (38-126) U/L Total Protein 6.6 (6.3-8.2) g/dL Albumin 4.4 (3.5-5.0) g/dL Amylase 57 (30-110) U/L Lipase 308 H (23-300) U/L Urine Color Yellow Urine Appearance Clear (Clear) Urine pH 7.5 (5.0-8.0) Ur Specific [place] 1.017 (1.001-1.035) Urine Protein Negative (Negative) Urine Glucose (UA) Negative (Negative) Urine Ketones Negative (Negative) Urine Blood Negative (Negative) Urine Nitrite Negative (Negative) Urine Bilirubin Negative (Negative) Urine Urobilinogen <2.0 (<2.0) mg/dL Ur Leukocyte Esterase Small H (Negative) Urine RBC 2 (0-5) /hpf Urine WBC 4 (0-5) /hpf Ur Squamous Epith Cells <1 (0-4) /hpf Urine Mucus Rare H (None) /hpf Disposition Clinical Impression: Abdominal pain Disposition: HOME SELF-CARE Condition: Good Instructions (If sedation given, give patient instructions): Abdominal Pain (ED) Additional Instructions: Please follow up with your PCP. Return to the ER for any worsening symptoms. Is patient prescribed a controlled substance at d/c from ED?: No Referrals: Ronni Velez MD [Primary Care Provider] - 1-2 days Time of Disposition: 14:39
[2023-02-16 12:48] LABS: Appearance,Urine Clear (Clear); Bilirubin,Urine Negative (Negative); Blood,Urine Negative (Negative); Color,Urine Yellow; Glucose,Urine (UA) Negative (Negative); Ketones,Urine Negative (Negative); Leukocyte Esterase,Urine Small (Negative); Mucus,Urine Rare /hpf; Nitrite,Urine Negative (Negative); PH, Urine 7.5 (5.0-8.0); Protein,Urine Negative (Negative); RBC,Urine 2 /hpf (0-5); Specific Gravity,Urine 1.017 (1.001-1.035); Squamous Epithelial Cell,Urine <1 /hpf (0-4); Urobilinogen,Urine <2.0 mg/dL (<2.0); WBC,Urine 4 /hpf (0-5)
[2023-02-16 13:12] LABS: ALT 21 U/L (4-34); AST 27 U/L (14-36); African American GFR (CKD) 71 (>60 ml/min/1.73 sqM); Albumin 4.4 g/dL (3.5-5.0); Alkaline Phosphatase 71 U/L (38-126); Amylase 57 U/L (30-110); Anion Gap 6 mmol/L; Blood Urea Nitrogen 17 mg/dL (7-17); Calcium 9.9 mg/dL (8.4-10.2); Carbon Dioxide 29 mmol/L (22-30); Chloride 103 mmol/L (98-107); Glucose 79 mg/dL (74-99); Lipase 308 U/L (23-300); Non-African American GFR(CKD) 62 (>60 ml/min/1.73 sqM); Potassium 4.2 mmol/L (3.5-5.1); Sodium 138 mmol/L (137-145); Total Bilirubin 0.6 mg/dL (0.2-1.3); Total Protein 6.6 g/dL (6.3-8.2)
--- NOTE | 2023-02-16 13:49 | CT ---
EXAMINATION TYPE: CT abdomen pelvis w con DATE OF EXAM: 02/16/2023 COMPARISON: 323 HISTORY: weakness, nausea CT DLP: 395.6 mGycm CONTRAST: CT scan of the abdomen and pelvis is performed without Oral Contrast and with IV Contrast, patient in jected with 100 mL of Isovue 300. FINDINGS: LUNG BASES-: No visible nodule. No infiltrate. LIVER/GB: No calcified gallstones. No space occupying hepatic lesion. Biliary tree is of normal ca liber. Hepatic hemangioma posterior segment right hepatic lobe is unchanged. PANCREAS: No inflammation. No distinct mass. SPLEEN: No splenic enlargement. No lesion seen. ADRENALS: No nodule. No thickening. KIDNEYS/BLADDER: No hydronephrosis. No nephrolithiasis. No distinct renal mass. Urinary bladder g rossly unremarkable. BOWEL: Appendicolith without evidence for dilated appendix or inflammatory change. Normal bowel calib er. No inflammation. GENITAL ORGANS: No gross abnormality. LYMPH NODES: No greater than 1cm abdominal or pelvic lymph nodes are appreciated. AORTA: No significant abnormality. OSSEOUS STRUCTURES: No significant abnormality is seen. OTHER: No significant additional abnormality is seen. IMPRESSION: 1. No acute process seen. 2.Appendicolith without evidence for dilated appendix or inflammatory change.
[2023-02-16 14:58] VITALS: BP 121/77; PULSE 65; RESP 18
== END 2023-02-16 14:57 | disposition home or self-care (01) ==
LOC: EC 08:46
DX: K38.1 Appendicular concretions (principal); E78.5 Hyperlipidemia, unspecified; Z79.899 Other long term (current) drug therapy; Z88.0 Allergy status to penicillin; Z91.010 Allergy to peanuts; Z91.018 Allergy to other foods; Z88.8 Allergy status to other drugs, medicaments and biological substances
CPT/HCPCS: 36415; 80053; 82150; 83690; 85025; 81001; 74177; 99284; 96374; 96375; J2405; J1885; Q9967

== ENCOUNTER 2024-01-24 14:08 | Observation (INO) | payer OTHER ==
--- NOTE | 2024-01-24 15:36 | ED ---
General Adult HPI - General Chief complaint: Abdominal Pain Stated complaint: R side pain Time Seen by Provider: 01/24/24 15:04 Source: patient, RN notes reviewed Mode of arrival: ambulatory Limitations: no limitations - History of Present Illness Initial comments: 63-year-old female presents to the emergency department for evaluation of right- sided abdominal pain. She states that the symptoms started on Saturday. She reports that the pain is aggravated by laying flat and alleviated with sitting up. She does admit to nausea. Reports decreased appetite. She reports a normal bowel movement yesterday. Denies fever, chills. Patient reports history of recurrent appendicitis. Prior surgeries include , hysterectomy. - Related Data Home Medications Medication Instructions Recorded Confirmed Atorvastatin Calcium [Lipitor] 20 mg PO HS 08/27/19 01/24/24 Multivitamins, Thera [Multivitamin 1 tab PO DAILY 05/30/22 01/24/24 (formulary)] Ciprofloxacin HCl [Cipro] 500 mg PO DIRECTED 01/24/24 01/24/24 Allergies Allergy/AdvReac Type Severity Reaction Status Date / Time barley Allergy Anaphylaxis Verified 01/24/24 19:04 milk Allergy Nausea & Verified 01/24/24 19:04 Vomiting Milk Containing Products Allergy Nausea & Verified 01/24/24 19:04 (Dairy) Vomiting [Milk Containing Products] peanut Allergy Swelling Verified 01/24/24 19:04 Penicillins Allergy Rash/Hives Verified 01/24/24 19:04 soybean Allergy Swelling Verified 01/24/24 19:04 wheat Allergy Anaphylaxis Verified 01/24/24 19:04 gluten AdvReac Wheezing Verified 01/24/24 19:04 rye Allergy Anaphylaxis Uncoded 01/24/24 19:04 Review of Systems ROS Statement: Those systems with pertinent positive or pertinent negative responses have been documented in the HPI. ROS Other: All systems not noted in ROS Statement are negative. Past Medical History Past Medical History: Hyperlipidemia Additional Past Medical History / Comment(s): Hyperlipidemia, AV janay reentrant tachycardia, post-ablation, History of Any Multi-Drug Resistant Organisms: None Reported Past Surgical History: Ablation, Heart Catheterization, Hysterectomy Additional Past Surgical History / Comment(s): heart cath june 2019 Past Psychological History: No Psychological Hx Reported Smoking Status: Never smoker Past Alcohol Use History: None Reported Past Drug Use History: None Reported - Past Family History Mother Additional Family Medical History / Comment(s): mitral valve prolapse Father Family Medical History: Diabetes Mellitus Additional Family Medical History / Comment(s): cabbag General Exam Limitations: no limitations General appearance: alert, in no apparent distress Head exam: Present: atraumatic, normocephalic, normal inspection Eye exam: Present: normal appearance, PERRL, EOMI. Absent: scleral icterus, conjunctival injection, periorbital swelling ENT exam: Present: normal exam, mucous membranes moist Respiratory exam: Present: normal lung sounds bilaterally. Absent: respiratory distress, wheezes, rales, rhonchi, stridor Cardiovascular Exam: Present: regular rate, normal rhythm, normal heart sounds. Absent: systolic murmur, diastolic murmur, rubs, gallop, clicks GI/Abdominal exam: Present: soft, tenderness (Right sided) Extremities exam: Present: normal inspection, full ROM, normal capillary refill. Absent: tenderness, pedal edema, joint swelling, calf tenderness Back exam: Absent: CVA tenderness (R), CVA tenderness (L) Neurological exam: Present: alert, oriented X3 Psychiatric exam: Present: normal affect, normal mood Skin exam: Present: warm, dry, intact, normal color. Absent: rash Course Vital Signs 01/24/24 01/24/24 14:24 17:37 Temperature 98.6 F 97.9 F Pulse Rate 74 66 Respiratory 18 16 Rate Blood Pressure 125/62 118/61 O2 Sat by Pulse 99 100 Oximetry Medical Decision Making - Medical Decision Making Was pt. sent in by a medical professional or institution (, PA, THERMODYNAMIC PHYSICIST, urgent care, hospital, or senior living...) When possible be specific @ -No Did you speak to anyone other than the patient for history (EMS, parent, family, police, friend...)? What history was obtained from this source @ -No Did you review nursing and triage notes (agree or disagree)? Why? @ -I reviewed and agree with nursing and triage notes Were old charts reviewed (outside hosp., previous admission, EMS record, old EKG, old radiological studies, urgent care reports/EKG's, senior living records)? Report findings @ -No old charts were reviewed Differential Diagnosis (chest pain, altered mental status, abdominal pain women, abdominal pain men, vaginal bleeding, weakness, fever, dyspnea, syncope, headache, dizziness, GI bleed, back pain, seizure, CVA, palpatations, mental h ealth, musculoskeletal)? @ -Differential Abdominal Pain Women: Appendicitis, Cholecystitis, diverticulosis, ischemic bowel, pancreatitis, hepatitis, UTI, gastroenteritis, AAA, incarcerated hernia, bowel obstruction, constipation, inflammatory bowel, hepatitis, peptic ulcer disease, splenic infarction, perforated viscus, vulvitis, ovarian torsion, PID, kidney stone, placenta abruption, this is not meant to be an all-inclusive list EKG interpreted by me (3pts min.). @ -none X-rays interpreted by me (1pt min.). @ -None done CT interpreted by me (1pt min.). @ -CT abdomen pelvis obtained revealing acute uncomplicated appendicitis with an appendicolith at the base of the appendix U/S interpreted by me (1pt. min.). @ -None done What testing was considered but not performed or refused? (CT, X-rays, U/S, labs)? Why? @ -None What meds were considered but not given or refused? Why? @ -None Did you discuss the management of the patient with other professionals (professionals i.e. , PA, THERMODYNAMIC PHYSICIST, lab, RT, psych nurse, outreach and education social worker, nursing agency manager, teacher, examining officer, watch case polisher)? Give summary @ -Management discussed with Dr. Eugene Patient to be started on Cipro and Flagyl and going to the OR tonight Was smoking cessation discussed for >3mins.? @ -No Was critical care preformed (if so, how long)? @ -No Were there social determinants of health that impacted care today? How? (Home lessness, low income, unemployed, alcoholism, drug addiction, transportation, low edu. Level, literacy, decrease access to med. care, custodial, rehab)? @ -No Was there de-escalation of care discussed even if they declined (Discuss DNR or withdrawal of care, Hospice)? DNR status @ -No What co-morbidities impacted this encounter? (DM, HTN, Smoking, COPD, CAD, Cancer, CVA, ARF, Chemo, Hep., AIDS, mental health diagnosis, sleep apnea, morbid obesity)? @ -None Was patient admitted / discharged? Hospital course, mention meds given and route, prescriptions, significant lab abnormalities, going to OR and other pertinent info. @ -Admitted. Patient presented to the emergency department for evaluation of right-sided abdominal pain x 4 days. Laboratory studies obtained revealing no significant leukocytosis, mild elevation in BUN and creatinine at 22 and 1.22 respectively. Lipase elevated at 584, normal LFTs. Patient hydrated with 1 L of normal saline prior to CT scan abdomen pelvis. CT abdomen pelvis obtained revealing acute uncomplicated appendicitis with an appendicolith at the base of the appendix, stable pancreatic head cystic lesion, stable right hepatic lobe lesion. Discussed findings with patient. She will be started on Cipro and Flagyl at the request of Dr. Eugene. Patient made n.p.o. and to go to the OR [facility]. Patient is understanding and agreeable with plan. Case discussed with Dr. Copeland. Undiagnosed new problem with uncertain prognosis? @ -No Drug Therapy requiring intensive monitoring for toxicity (Heparin, Nitro, Insulin, Cardizem)? @ -No Were any procedures done? @ -No Diagnosis/symptom? @ -Appendicitis, acute uncomplicated Acute, or Chronic, or Acute on Chronic? @ -Acute Uncomplicated (without systemic symptoms) or Complicated (systemic symptoms)? @ -Uncomplicated Side effects of treatment? @ -No Exacerbation, Progression, or Severe Exacerbation? @ -No Poses a threat to life or bodily function? How? (Chest pain, USA, SC, pneumonia, PE, COPD, DKA, ARF, appy, cholecystitis, CVA, Diverticulitis, Homicidal, Suicidal, threat to staff... and all critical care pts) @ -Appendicitis - Lab Data Result diagrams: 01/24/24 15:55 01/24/24 15:55 Lab Results 01/24/24 01/24/24 01/24/24 Range/Units 15:55 15:55 15:55 WBC 4.6 (3.8-10.6) k/uL RBC 4.06 (3.80-5.40) m/uL Hgb 12.1 (11.4-16.0) gm/dL Hct 38.2 (34.0-46.0) % MCV 94.1 (80.0-100.0) fL MCH 29.8 (25.0-35.0) pg MCHC 31.7 (31.0-37.0) g/dL RDW 13.0 (11.5-15.5) % Plt Count 124 L (150-450) k/uL MPV 7.6 Neutrophils % 80 % Lymphocytes % 12 % Monocytes % 6 % Eosinophils % 1 % Basophils % 0 % Neutrophils # 3.7 (1.3-7.7) k/uL Lymphocytes # 0.5 L (1.0-4.8) k/uL Monocytes # 0.3 (0-1.0) k/uL Eosinophils # 0.1 (0-0.7) k/uL Basophils # 0.0 (0-0.2) k/uL Sodium 138 (137-145) mmol/L Potassium 4.2 (3.5-5.1) mmol/L Chloride 108 H (98-107) mmol/L Carbon Dioxide 28 (22-30) mmol/L Anion Gap 2 mmol/L BUN 22 H (7-17) mg/dL Creatinine 1.21 H (0.52-1.04) mg/dL Est GFR (CKD-EPI)AfAm 55 (>60 ml/min/1.73 sqM) Est GFR (CKD-EPI)NonAf 48 (>60 ml/min/1.73 sqM) Glucose 92 (74-99) mg/dL Plasma Lactic Acid Inocencio (0.7-2.0) mmol/L Calcium 9.4 (8.4-10.2) mg/dL Total Bilirubin 0.6 (0.2-1.3) mg/dL AST 25 (14-36) U/L ALT 15 (4-34) U/L Alkaline Phosphatase 64 (38-126) U/L Total Protein 6.1 L (6.3-8.2) g/dL Albumin 4.0 (3.5-5.0) g/dL Amylase 54 (30-110) U/L Lipase 584 H (23-300) U/L Urine Color Colorless Urine Appearance Clear (Clear) Urine pH 5.0 (5.0-8.0) Ur Specific [place] 1.010 (1.001-1.035) Urine Protein Negative (Negative) Urine Glucose (UA) Negative (Negative) Urine Ketones Negative (Negative) Urine Blood Negative (Negative) Urine Nitrite Negative (Negative) Urine Bilirubin Negative (Negative) Urine Urobilinogen <2.0 (<2.0) mg/dL Ur Leukocyte Esterase Negative (Negative) 01/24/24 Range/Units 15:55 WBC (3.8-10.6) k/uL RBC (3.80-5.40) m/uL Hgb (11.4-16.0) gm/dL Hct (34.0-46.0) % MCV (80.0-100.0) fL MCH (25.0-35.0) pg MCHC (31.0-37.0) g/dL RDW (11.5-15.5) % Plt Count (150-450) k/uL MPV Neutrophils % % Lymphocytes % % Monocytes % % Eosinophils % % Basophils % % Neutrophils # (1.3-7.7) k/uL Lymphocytes # (1.0-4.8) k/uL Monocytes # (0-1.0) k/uL Eosinophils # (0-0.7) k/uL Basophils # (0-0.2) k/uL Sodium (137-145) mmol/L Potassium (3.5-5.1) mmol/L Chloride (98-107) mmol/L Carbon Dioxide (22-30) mmol/L Anion Gap mmol/L BUN (7-17) mg/dL Creatinine (0.52-1.04) mg/dL Est GFR (CKD-EPI)AfAm (>60 ml/min/1.73 sqM) Est GFR (CKD-EPI)NonAf (>60 ml/min/1.73 sqM) Glucose (74-99) mg/dL Plasma Lactic Acid Inocencio 0.5 L (0.7-2.0) mmol/L Calcium (8.4-10.2) mg/dL Total Bilirubin (0.2-1.3) mg/dL AST (14-36) U/L ALT (4-34) U/L Alkaline Phosphatase (38-126) U/L Total Protein (6.3-8.2) g/dL Albumin (3.5-5.0) g/dL Amylase (30-110) U/L Lipase (23-300) U/L Urine Color Urine Appearance (Clear) Urine pH (5.0-8.0) Ur Specific [place] (1.001-1.035) Urine Protein (Negative) Urine Glucose (UA) (Negative) Urine Ketones (Negative) Urine Blood (Negative) Urine Nitrite (Negative) Urine Bilirubin (Negative) Urine Urobilinogen (<2.0) mg/dL Ur Leukocyte Esterase (Negative) Disposition Clinical Impression: Acute appendicitis Disposition: ADMITTED IP TO THIS HOSP Condition: Stable Is patient prescribed a controlled substance at d/c from ED?: No
[2024-01-24] MEDS: KETOROLAC 15 MG/ML 1 ML VIAL IVP STA ×2 (15:55→22:32)
[2024-01-24] MEDS: SODIUM CHLORIDE 0.9% 1,000 ML IV STA (15:56)
[2024-01-24 16:14] LABS: Appearance,Urine Clear (Clear); Basophils % (A) 0 %; Bilirubin,Urine Negative (Negative); Blood,Urine Negative (Negative); Color,Urine Colorless; Eosinophils # (A) 0.1 k/uL (0-0.7); Eosinophils % (A) 1 %; Glucose,Urine (UA) Negative (Negative); HCT 38.2 % (34.0-46.0); HGB 12.1 gm/dL (11.4-16.0); Ketones,Urine Negative (Negative); Leukocyte Esterase,Urine Negative (Negative); Lymphocytes # (A) 0.5 k/uL (1.0-4.8); Lymphocytes % (A) 12 %; MCH 29.8 pg (25.0-35.0); MCHC 31.7 g/dL (31.0-37.0); MCV 94.1 fL (80.0-100.0); Mean Platelet Volume 7.6; Monocytes # (A) 0.3 k/uL (0-1.0); Monocytes % (A) 6 %; Neutrophils # (A) 3.7 k/uL (1.3-7.7); Neutrophils % (A) 80 %; Nitrite,Urine Negative (Negative); Platelet Count 124 k/uL (150-450); Protein,Urine Negative (Negative); RBC 4.06 m/uL (3.80-5.40); Urobilinogen,Urine <2.0 mg/dL (<2.0); WBC 4.6 k/uL (3.8-10.6)
[2024-01-24 16:24] LABS: African American GFR (CKD) 55 (>60 ml/min/1.73 sqM); Anion Gap 2 mmol/L; Blood Urea Nitrogen 22 mg/dL (7-17); Calcium 9.4 mg/dL (8.4-10.2); Carbon Dioxide 28 mmol/L (22-30); Chloride 108 mmol/L (98-107); Glucose 92 mg/dL (74-99); Non-African American GFR(CKD) 48 (>60 ml/min/1.73 sqM); Potassium 4.2 mmol/L (3.5-5.1); Sodium 138 mmol/L (137-145); Total Protein 6.1 g/dL (6.3-8.2)
[2024-01-24 16:25] LABS: ALT 15 U/L (4-34); AST 25 U/L (14-36); Alkaline Phosphatase 64 U/L (38-126); Amylase 54 U/L (30-110); Lipase 584 U/L (23-300); Total Bilirubin 0.6 mg/dL (0.2-1.3)
--- NOTE | 2024-01-24 18:00 | CT ---
EXAMINATION TYPE: CT abdomen pelvis w con DATE OF EXAM: 01/24/2024 5:48 PM COMPARISON: CT abdomen pelvis most recent from 02/16/2023 CLINICAL INDICATION: Female, 63 years old with history of right sided abd pain; abd pain/hx pancreati tis TECHNIQUE: Axial CT abdomen pelvis w con;Sagittal and coronal reformats were created on a separate w orkstation. Contrast used:100ml mL of Isovue 300 with IV Contrast, (none if empty) Oral contrast used: without Oral Contrast (none if empty) CT DLP: 444.2 mGycm, Automated exposure control for dose reduction was used. FINDINGS: LOWER CHEST: Unremarkable ABDOMEN LIVER: Indeterminate lesion in the right hepatic lobe near the dome measuring up to 23 mm. Periportal edema noted. GALLBLADDER AND BILE DUCTS: Unremarkable. PANCREAS: Stable appearance of the pancreatic gland. SPLEEN: Unremarkable. ADRENAL GLANDS: Unremarkable. KIDNEYS AND URETERS: No evidence of hydronephrosis or renal calculus. The ureters are unremarkable. PELVIS BLADDER: No evidence for wall thickening or mass given limitations of exam. REPRODUCTIVE: Unremarkable. ABDOMEN & PELVIS STOMACH AND BOWEL: there are fat stranding changes around the appendix dilation up to 10 mm. Appendic olith measuring 5 mm. The appendix is located posterior medial to the cecum. The appendicolith is loc ated in the base of the appendix. No evidence of bowel obstruction. PERITONEUM/RETROPERITONEUM: No evidence of pneumoperitoneum or free fluid. VASCULATURE: No evidence of aortic aneurysm. MUSCULOSKELETAL: No acute osseous abnormalities LYMPH NODES: No gross evidence for lymphadenopathy. SOFT TISSUE/ABDOMINAL WALL: Unremarkable IMPRESSION: 1. Acute uncomplicated appendicitis with appendicolith in the base of the appendix. Surgical consult ation recommended. 2. Pancreatic head cystic lesion which is stable from prior. Finding could represent sequela prior p ancreatitis versus side branch intraductal plaque produces neoplasm versus other. 3. Stable indeterminate lesion in the medial right hepatic lobe possibly representing a hemangioma. [facility], , 01/24/2024 5:58 PM
[2024-01-24] MEDS ORDERED: NALOXONE 0.4 MG/ML 1 ML VIAL IV PRN (18:44)
[2024-01-24] MEDS ORDERED: ACETAMINOPHEN TAB 325 MG TAB PO PRN (18:44)
[2024-01-24] MEDS ORDERED: IBUPROFEN 400 MG TAB PO PRN (18:44)
[2024-01-24] MEDS ORDERED: HYDROmorphone 1 MG/ML 1 ML SYRINGE IVP PRN (18:44)
[2024-01-24] MEDS: metroNIDAZOLE-NS PMX 500 MG in SALINE 1 100ML.BAG IVPB STA (18:52)
[2024-01-24] MEDS: DEXAMETHASONE SOD PHOSPHATE 4 MG/ML 1 ML VIAL IVP STA (19:57)
[2024-01-24] MEDS: ONDANSETRON 4 MG/2 ML VIAL IVP STA (19:58)
[2024-01-24] MEDS: LACTATED RINGERS 1,000 ML BAG IV STA (19:59)
[2024-01-24] MEDS: IV FLUID CONTINUATION 1,000 ML IV ONE (20:00)
[2024-01-24] MEDS ORDERED: HYDROmorphone 2 MG/ML 1 ML SYRINGE IVP PRN (20:06)
[2024-01-24] MEDS: FAMOTIDINE 20 MG/2 ML VIAL IV STA (20:16)
[2024-01-24] MEDS: HEPARIN SODIUM,PORCINE 5,000 UNIT/ML 1 ML VIAL SQ STA (20:25)
[2024-01-24] MEDS ORDERED: PROPOFOL 10 MG/ML 20 ML VIAL IV ONE (20:35)
[2024-01-24] MEDS ORDERED: SUCCINYLCHOLINE CHLORIDE 200 MG/10 ML VIAL IV ONE (20:35)
[2024-01-24] MEDS ORDERED: fentaNYL (PF) 50 MCG/ML 2 ML AMP ONE (20:35)
[2024-01-24] MEDS ORDERED: ROCURONIUM 10 MG/ML (5 ML VIAL) IV ONE (20:35)
[2024-01-24] MEDS ORDERED: MIDAZOLAM 2 MG/2 ML VIAL ONE (20:35)
[2024-01-24] MEDS ORDERED: SUGAMMADEX SODIUM 200 MG/2 ML SDV IV ONE (20:35)
[2024-01-24] MEDS: LIDOCAINE 1%-EPI 1:100,000 20 ML VIAL SQ ONE ×2 (20:37→20:59)
--- NOTE | 2024-01-24 20:45 | P.GSHP ---
History of Present Illness H&P Date: 01/24/24 CHIEF COMPLAINT: Right lower quadrant abdominal pain with appendicitis for over 4 days. HISTORY OF PRESENT ILLNESS: The patient is a 63-year-old female who presents with over 4 day history of periumbilical with right lower quadrant abdominal pain that is crampy dull ache in nature. No reports of prior abdominal pain. He reports generalized weakness. Separately, patient has had COVID 4 times with the last event 1 year ago. She has pre-existing pancreatitis. She reports prior , hysterectomy and ablations. She denies fevers or chills. She denies taking antibiotics. She reports moderate to severe right lower quadrant pain she states the intensity of the pain. Diagnostic studies demonstrate appendicitis hence her admission. PAST MEDICAL HISTORY: See list and reviewed PAST SURGICAL HISTORY: See list and reviewed CURRENT MEDICATIONS: See list and reviewed ALLERGIES: See list and reviewed SOCIAL HISTORY: See list and reviewed FAMILY HISTORY: See list and reviewed REVIEW OF ORGAN SYSTEMS: CONSTITUTIONAL: Present fever, no chills. Underweight, BMI 17.0 HEENT: Denies any trouble with vision, hearing or nosebleeds. No difficulty swallowing. LYMPHATIC: The patient denies any lumps and bumps around the neck. ENDOCRINE: Denies any thyroid disorders. Denies any blood sugar glucose intolerance. RESPIRATORY: Denies shortness of breath including chronic cough. CARDIOVASCULAR: Prior cardiac ablation. GASTROINTESTINAL: Has chronic pancreatitis. GENITOURINARY: Denies any blood in urine or increased urinary frequency. MUSCULOSKELETAL: Denies current joint arthritis. NEUROLOGIC: Denies any numbness or tingling along the distal extremities. No seizure disorders or headaches. PSYCHIATRIC: Denies any depression or suicidal ideation. HEMATOLOGIC: Denies any abnormal bleeding or bruising. Recurrent COVID x 4. PHYSICAL EXAMINATION: VITALS: Reviewed. GENERAL: Well-developed and in no acute distress. Pleasant. HEENT: No sclera icterus. Extraocular movements grossly intact. Moist buccal mucosa. Head is atraumatic, normocephalic. Hears conversational speech. No nasal drainage. NECK: Supple without lymphadenopathy. No JV distention. CHEST: Non-labored respirations and equal bilateral excursions. CARDIOVASCULAR: Regular rate and rhythm. Palpable 2+ radial pulses. ABDOMEN: Scaphoid, tender right lower quadrant. MUSCULOSKELETAL: No clubbing, cyanosis or edema. NEUROLOGIC: No focal or lateralizing signs. PSYCH: Appropriate affect. Alert and oriented to person, place and time. SKIN: Well perfused. Good skin turgor. LABS: Reviewed. White blood cell count normal. EKG: Abnormal with sinus bradycardia including septal infarct of undetermined age. STUDIES: CT of the abdomen and pelvis report reviewed with findings consistent with appendicitis. ASSESSMENT: 1. Acute appendicitis due to appendicolith 2. Underweight, BMI 17.0 3. Abnormal EKG with history of cardiac ablation 4. Recurrent COVID PLAN: 1. Patient is elevated risk due to pre-existing comorbidities for robotic appendectomy. 2. Admission described. 3. Heparin and DVT prophylaxis Past Medical History Past Medical History: Hyperlipidemia Additional Past Medical History / Comment(s): Hyperlipidemia, AV janay reentrant tachycardia, post-ablation, History of Any Multi-Drug Resistant Organisms: None Reported Past Surgical History: Ablation, Heart Catheterization, Hysterectomy Additional Past Surgical History / Comment(s): heart cath june 2019 Past Psychological History: No Psychological Hx Reported Smoking Status: Never smoker Past Alcohol Use History: None Reported Past Drug Use History: None Reported Medications and Allergies Home Medications Medication Instructions Recorded Confirmed Type Atorvastatin Calcium [Lipitor] 20 mg PO HS 08/27/19 01/24/24 History Multivitamins, Thera [Multivitamin 1 tab PO DAILY 05/30/22 01/24/24 History (formulary)] Ciprofloxacin HCl [Cipro] 500 mg PO DIRECTED 01/24/24 01/24/24 History Allergies Allergy/AdvReac Type Severity Reaction Status Date / Time barley Allergy Anaphylaxis Verified 01/24/24 19:04 milk Allergy Nausea & Verified 01/24/24 19:04 Vomiting Milk Containing Products Allergy Nausea & Verified 01/24/24 19:04 (Dairy) Vomiting [Milk Containing Products] peanut Allergy Swelling Verified 01/24/24 19:04 Penicillins Allergy Rash/Hives Verified 01/24/24 19:04 soybean Allergy Swelling Verified 01/24/24 19:04 wheat Allergy Anaphylaxis Verified 01/24/24 19:04 gluten AdvReac Wheezing Verified 01/24/24 19:04 rye Allergy Anaphylaxis Uncoded 01/24/24 19:04 Surgical - Exam Vital Signs Temp Pulse Resp BP Pulse Ox 98.6 F 74 18 125/62 99 01/24/24 14:24 01/24/24 14:24 01/24/24 14:24 01/24/24 14:24 01/24/24 14:24 Results - Labs 01/24/24 15:55 01/24/24 15:55 Abnormal Lab Results - Last 24 Hours (Table) 01/24/24 01/24/24 01/24/24 Range/Units 15:55 15:55 15:55 Plt Count 124 L (150-450) k/uL Lymphocytes # 0.5 L (1.0-4.8) k/uL Chloride 108 H (98-107) mmol/L BUN 22 H (7-17) mg/dL Creatinine 1.21 H (0.52-1.04) mg/dL Plasma Lactic Acid Inocencio 0.5 L (0.7-2.0) mmol/L Total Protein 6.1 L (6.3-8.2) g/dL Lipase 584 H (23-300) U/L Diabetes panel 01/24/24 Range/Units 15:55 Sodium 138 (137-145) mmol/L Potassium 4.2 (3.5-5.1) mmol/L Chloride 108 H (98-107) mmol/L Carbon Dioxide 28 (22-30) mmol/L BUN 22 H (7-17) mg/dL Creatinine 1.21 H (0.52-1.04) mg/dL Glucose 92 (74-99) mg/dL Calcium 9.4 (8.4-10.2) mg/dL AST 25 (14-36) U/L ALT 15 (4-34) U/L Alkaline Phosphatase 64 (38-126) U/L Total Protein 6.1 L (6.3-8.2) g/dL Albumin 4.0 (3.5-5.0) g/dL Calcium panel 01/24/24 Range/Units 15:55 Calcium 9.4 (8.4-10.2) mg/dL Albumin 4.0 (3.5-5.0) g/dL Pituitary panel 01/24/24 Range/Units 15:55 Sodium 138 (137-145) mmol/L Potassium 4.2 (3.5-5.1) mmol/L Chloride 108 H (98-107) mmol/L Carbon Dioxide 28 (22-30) mmol/L BUN 22 H (7-17) mg/dL Creatinine 1.21 H (0.52-1.04) mg/dL Glucose 92 (74-99) mg/dL Calcium 9.4 (8.4-10.2) mg/dL Adrenal panel 01/24/24 Range/Units 15:55 Sodium 138 (137-145) mmol/L Potassium 4.2 (3.5-5.1) mmol/L Chloride 108 H (98-107) mmol/L Carbon Dioxide 28 (22-30) mmol/L BUN 22 H (7-17) mg/dL Creatinine 1.21 H (0.52-1.04) mg/dL Glucose 92 (74-99) mg/dL Calcium 9.4 (8.4-10.2) mg/dL Total Bilirubin 0.6 (0.2-1.3) mg/dL AST 25 (14-36) U/L ALT 15 (4-34) U/L Alkaline Phosphatase 64 (38-126) U/L Total Protein 6.1 L (6.3-8.2) g/dL Albumin 4.0 (3.5-5.0) g/dL
[2024-01-24] MEDS: LACTATED RINGERS 1,000 ML IV ONE (21:11)
[2024-01-24] MEDS ORDERED: ONDANSETRON 4 MG/2 ML VIAL IVP PRN (21:33)
--- NOTE | 2024-01-24 21:37 | P.OP ---
Date of Procedure: 01/24/24 Description of Procedure: SURGEON: TAMIKA DIGGS MD Preoperative Diagnosis: 1. Acute appendicitis 2. Underweight, BMI 17.0 3. Abnormal EKG 4. History of cardiac ablation 5. History of chronic pancreatitis 6. Hyperlipidemia Postoperative Diagnosis: 1. Acute appendicitis, retrocecal with periappendicitis 2. Underweight, BMI 17.0 3. Abnormal EKG 4. History of cardiac ablation 5. History of chronic pancreatitis 6. Hyperlipidemia Procedure(s) Performed: 1. Robotic-assisted daVinci Xi laparoscopic appendectomy Anesthesia: GETA, local Estimated Blood Loss (ml): 5 Pathology: other (appendix) Condition: stable Disposition: floor Operative Findings: 1. Acute appendicitis without rupture with periappendicitis, retrocecal 2. Terminal ileum unremarkable 3. Cecum unremarkable INDICATIONS: The patient is a 63-year-old female who presents with acute appendicitis for 4 days. Benefits and risks, including infection, open surgery, and bleeding for additional surgery was discussed at length. Informed consent was obtained. All questions of the patient and family were answered. DESCRIPTION: The patient was transferred to the operating room and placed in supine position. The patient had previously voided. The abdomen was then prepped and draped in standard sterile fashion as Ioban was placed along the abdomen to minimize any contamination of skin floor. After a timeout protocol was performed, attention was then brought to the left upper quadrant whereby a 0 degree 5 mm laparoscopic trocar entry was performed. The abdominal cavity was entered and insufflated to 12 mmHg pressure, which was tolerated well. Diagnostic laparoscopy demonstrated no injury to bowel, viscera or mesentery. Next a robotic 8-mm trocar was placed along the left lower quadrant, 10-cm lateral to the midline. A 12 mm port was placed along the left upper quadrant and another 8-mm port left lateral abdominal wall. Ports were placed 8 cm apart from each other including 15-20 cm away from the target anatomy of the right pelvis. The patient was then placed in Trendelenburg position, at least 10 down and right side up at least 7. The robotic da Tulio XI system was primed and docked from the left side of the patient. Using atraumatic graspers and vessel sealer, the robotic system was docked and primed as described. Instruments were interchanged by the pediatric medical assistant including graspers, robotic stapler and vessel sealer. Next, attention was brought to identify the cecum. A systematic view within the abdominal cavity was started with the small bowel which was unremarkable. The base of the cecum was unremarkable. The appendix was retrocecal coursing towards right upper quadrant behind the ascending colon with additional dissection required. The body of the appendix was moderately dilated with moderate periappendicitis. No perforation was identified. The appendix was dissected free from its surrounding tissues. White 45 mm robotic staple loads were fired along the base of the appendix. The staple line was hemostatic. Hemostasis was checked prior to undocking the robot. The robot was undocked. I re-scrubbed into the case. The specimen was removed from the abdominal cavity with an Endo Catch bag through the 12 mm trocar at the left upper quadrant. All instruments and pneumoperitoneum were evacuated from the abdominal cavity. Local anesthetic was infiltrated to all wounds for postop analgesia. All incisions were also cleansed with diluted hydrogen peroxide. The incisions were closed with 4-0 Monocryl. Exofin glue was applied to the rest of the skin incisions. The patient had tolerated the procedure well. The patient was extubated success fully. The patient was transferred to the postanesthesia care unit in stable condition.
[2024-01-24 22:11] VITALS: RESP 16
[2024-01-24] MEDS: CIPROFLOXACIN/DEXTROSE PMX 400 MG in DEXTROSE/WATER 1 200ML.BAG IVPB STA (22:32)
[2024-01-25] MEDS: SODIUM CHLORIDE 0.9% 1,000 ML IV SCH (03:19)
[2024-01-25 08:40] VITALS: BP 103/53; PULSE 61; TEMP 98.3
[2024-01-25] MEDS: KETOROLAC 15 MG/ML 1 ML VIAL IVP PRN (10:28)
--- NOTE | 2024-01-25 13:56 | P.PN ---
Subjective Progress Note Date: 01/25/24 CHIEF COMPLAINT: Appendicitis HISTORY OF PRESENT ILLNESS: The patient is a 63-year-old female admitted for acute appendicitis. She feels much better today. She is tolerating diet. is bedside. She had questions regarding pancreatitis. No diffuse abdominal pain. ROS: No reports of nausea and vomiting. No fevers or chills. No new chest pain. No productive sputum PHYSICAL EXAM: VITAL SIGNS: Reviewed CONSTITUTIONAL: Well developed and in no acute distress. EYES: Conjuctivae without sclera icterus. Extraocular movements grossly intact. HEAD, EARS, NOSE, THROAT: Moist buccal mucosa. Head is atraumatic, normocephalic. Hears conversational speech. No nasal drainage. RESPIRATORY: Non-labored respirations and equal bilateral excursions. CARDIOVASCULAR: Palpable 2+ radial pulses. ABDOMEN: Incisions clean dry intact. MUSCULOSKELETAL: No gross deformity of the lower extremities noted. No clubbing. No cyanosis. SKIN: Good skin turgor. Well perfused. NEUROLOGIC: Cranial nerves II through XII grossly intact. No focal or lateralizing signs. PSYCH: Appropriate affect. Alert and oriented to person, place and time. CLINICAL LABS: Reviewed. ASSESSMENT: 1. Acute appendicitis PLAN: 1. Patient clinically doing well may be discharged. 2. Weight lifting instructions including soaking in bathtub for 2 weeks until 02/07/2024 reviewed Objective - Vital Signs Vital signs: Vital Signs Temp 98.3 F 01/25/24 07:00 Pulse 61 01/25/24 07:00 Resp 16 01/25/24 07:00 BP 103/53 01/25/24 07:00 Pulse Ox 100 01/25/24 07:00 FiO2 Intake & Output 01/24/24 01/25/24 01/25/24 18:59 06:59 18:59 Intake Total 800 Output Total 5 Balance 795 Weight 46.266 kg 46.266 kg Intake: IV 800 Output: Estimated Blood Loss 5 Other: Voiding Method Toilet # Voids 2 - Labs CBC & Chem 7: 01/24/24 15:55 01/24/24 15:55 Labs: Abnormal Lab Results - Last 24 Hours (Table) 01/24/24 01/24/24 01/24/24 Range/Units 15:55 15:55 15:55 Plt Count 124 L (150-450) k/uL Lymphocytes # 0.5 L (1.0-4.8) k/uL Chloride 108 H (98-107) mmol/L BUN 22 H (7-17) mg/dL Creatinine 1.21 H (0.52-1.04) mg/dL Plasma Lactic Acid Inocencio 0.5 L (0.7-2.0) mmol/L Total Protein 6.1 L (6.3-8.2) g/dL Lipase 584 H (23-300) U/L
--- NOTE | 2024-01-25 14:02 | P.DS ---
Providers Date of admission: 01/24/24 18:04 Expected date of discharge: 01/25/24 Attending physician: Alma Eugene Consults: 01/24/24 20:38 Consult Physician Routine Consulting Provider: [facility] Consult Reason/Comments: [facility] Do you want consulting provider notified?: Yes Primary care physician: Ronni Velez MD Hospital Course: Postoperative Diagnosis: 1. Acute appendicitis, retrocecal with periappendicitis 2. Underweight, BMI 17.0 3. Abnormal EKG 4. History of cardiac ablation 5. History of chronic pancreatitis 6. Hyperlipidemia COURSE: The patient is a 63-year-old female admitted for acute appendicitis. She underwent appendectomy without sequelae. Prior to discharge she was tolerating diet. Her pain had been improved. Discharge instructions including wound care management of antibacterial soap and hydrogen peroxide described. Procedures: Procedure(s) Performed: 1. Robotic-assisted daVinci Xi laparoscopic appendectomy Anesthesia: GETA, local Estimated Blood Loss (ml): 5 Pathology: other (appendix) Condition: stable Disposition: floor Operative Findings: 1. Acute appendicitis without rupture with periappendicitis, retrocecal 2. Terminal ileum unremarkable 3. Cecum unremarkable Patient Condition at Discharge: Stable Plan - Discharge Summary Discharge Rx Participant: No New Discharge Prescriptions: New Simethicone [Gas-X] 125 mg PO AC-TID PRN #20 capsule PRN Reason: Pain Ibuprofen [Motrin] 600 mg PO Q8HR PRN #30 tab PRN Reason: Pain Acetaminophen Tab [Tylenol Tab] 500 mg PO Q6H PRN #30 tablet PRN Reason: Pain Continue Atorvastatin Calcium [Lipitor] 20 mg PO HS Multivitamins, Thera [Multivitamin (formulary)] 1 tab PO DAILY Discontinued Ciprofloxacin HCl [Cipro] 500 mg PO DIRECTED Discharge Medication List Atorvastatin Calcium [Lipitor] 20 mg PO HS 08/27/19 [History] Multivitamins, Thera [Multivitamin (formulary)] 1 tab PO DAILY 05/30/22 [History] Acetaminophen Tab [Tylenol Tab] 500 mg PO Q6H PRN #30 tablet 01/25/24 [Rx] Ibuprofen [Motrin] 600 mg PO Q8HR PRN #30 tab 01/25/24 [Rx] Simethicone [Gas-X] 125 mg PO AC-TID PRN #20 capsule 01/25/24 [Rx] Follow up Appointment(s)/Referral(s): Ronni Velez MD [Primary Care Provider] - 1-2 days Alma Eugene MD [STAFF PHYSICIAN] - 01/28/24 6:45 pm (TELEHEALTH) Patient Instructions/Handouts: Laparoscopic Appendectomy (GEN) Activity/Diet/Wound Care/Special Instructions: TELEHEALTH - DR WILL CALL YOU BETWEEN 9 am to 8 pm NO LONG DRIVES OR AIRPLANE RIDES OVER 60 MINUTES FOR THE NEXT 2 WEEKS, 02/07/24, DUE TO HIGH RISK OF PULMONARY EMBOLISM/DVTs May drive in 72 hrs, 01/27/24 No lifting over 10 pounds in 2 weeks until, 02/07/24, May shower. No bath tub soaks for two weeks until 02/07/24, Diet as tolerated. Use Tylenol, simethicone and ibuprofen or Aleve scheduled for the next 24-48 hours for best pain relief. Use ice along incisions for today to prevent swelling. Discharge Disposition: HOME SELF-CARE
== END 2024-01-25 14:43 | disposition home or self-care (01) ==
LOC: EC 14:08 → 6NMEDSUR 18:04
PROVIDERS: ADMIT Surgery Plastic and Reconstructive Surgery; ATTEND Surgery Plastic and Reconstructive Surgery
DX: K35.80 Unspecified acute appendicitis (principal); R94.31 Abnormal electrocardiogram [ECG] [EKG]; R63.6 Underweight; Z68.1 Body mass index [BMI] 19.9 or less, adult; E78.5 Hyperlipidemia, unspecified; I47.19 Other supraventricular tachycardia; Z16.24 Resistance to multiple antibiotics; Z66 Do not resuscitate; Z79.899 Other long term (current) drug therapy; Z91.011 Allergy to milk products; Z91.010 Allergy to peanuts; Z88.0 Allergy status to penicillin; Z91.018 Allergy to other foods; Z86.16 Personal history of COVID-19; Z98.890 Other specified postprocedural states
CPT/HCPCS: 44970; S2900; 36415; 74177; 80053; 81003; 82150; 83605; 83690; 85025; 88304; 93005; 96374; 99285

== ENCOUNTER → 2024-02-25 | Outpatient (CLI) | payer OTHER ==
--- NOTE | 2024-02-25 08:50 | US ---
EXAMINATION TYPE: US gallbladder DATE OF EXAM: 02/25/2024 COMPARISON: CT abdomen pelvis 01/24/2024, 02/16/2023 CLINICAL INDICATION: Female, 63 years old with history of R10.11 RUQ PAIN; RUQ pain. TECHNIQUE: Grayscale and color Doppler imaging of the right upper quadrant was performed. FINDINGS: EXAM MEASUREMENTS: Liver Length: 14.9 cm Gallbladder Wall: 0.1 cm CBD: 0.3 cm Right Kidney: 9.4 x 3.4 x 2.9 cm Pancreas: Head obscured by overlying bowel gas Liver: Right echogenic nonvascular lesion = 1.6 x 2.0 x 2.4 cm Gallbladder: limited visualization due to patient body habitus, no stones or wall thickening seen Evidence for sonographic Valdivia's sign: neg CBD: wnl Right Kidney: Medial anechoic lesion seen at hilum The visualized portions of the pancreas are within normal limits. The head is obscured by overlying b owel gas as evaluation of known pancreatic head cystic lesion. There is a well demarcated homogeneous nonvascular echogenic lesion within the right hepatic lobe measuring up to 2.4 cm. No gallstones, wa ll thickening or surrounding fluid. Negative sonographic Valdivia's sign. Common bile duct is within no rmal limits. Right kidney demonstrates no hydronephrosis, shadowing calculi, or solid mass. There is a small simple cyst at the hilum. IMPRESSION: 1. No ultrasound evidence for acute process. 2. Hyperechoic 2.4 cm hepatic lesion consistent with known hemangioma. [facility], , 02/25/2024 8:47 AM
== END | disposition home or self-care (01) ==
LOC: RADUSWWP 07:37
PROVIDERS: ATTEND Surgery Plastic and Reconstructive Surgery
DX: N28.1 Cyst of kidney, acquired (principal); D18.09 Hemangioma of other sites
CPT/HCPCS: 76705

== ENCOUNTER → 2024-02-27 | Outpatient (CLI) | payer OTHER ==
--- NOTE | 2024-02-27 16:19 | NM ---
EXAMINATION TYPE: NM hepatobiliary w EF DATE OF EXAM: 02/27/2024 3:04 PM COMPARISON: Ultrasound most recent 02/25/2024 CT abdomen pelvis most recent from 01/24/2024 CLINICAL INDICATION:Female, 63 years old with history of R10.11 RUQ pain; TECHNIQUE: The patient was given 5.2 mCi of Technetium 99m-Mebrofenin as a radiotracer and multiple scintigraphic images were obtained of the abdomen. Gallbladder function was also assessed after the a dministration of mcg of ensure drink and additional scintigraphic images were obtained of the abdomen . A region of interest was drawn over the gallbladder and a timing activity curve was generated. The gallbladder ejection fraction was calculated. FINDINGS: Normal uptake of radiotracer was identified within the liver with excretion into the hepatic and comm on biliary ducts within 8 min. There was normal progressive washout of the liver over the course of t he study. Radiotracer uptake within the gallbladder at 12 minutes as well as small bowel activity was identified at 60 minutes. Maximum calculated gallbladder ejection fraction is: 75% at 30minutes (Normal gallbladder ejection fraction is > 35%) IMPRESSION: 1. Normal hepatobiliary scan. 2. Normal ejection fraction. [facility], , 02/27/2024 4:17 PM
== END | disposition home or self-care (01) ==
LOC: RADNMMAIN 12:40
PROVIDERS: ATTEND Surgery Plastic and Reconstructive Surgery
DX: R10.11 Right upper quadrant pain (principal)
CPT/HCPCS: 78226; A9537